=== PATIENT | male | born 1965 | race Caucasian/White ===

== ENCOUNTER 2017-07-20 20:47 | Inpatient (IN) | END 2017-07-22 17:15 | disposition home or self-care (01) | DRG 434 ==

== ENCOUNTER 2017-07-23 18:18 | Emergency (ER) | END 2017-07-24 04:11 | disposition home or self-care (01) ==

== ENCOUNTER 2017-07-25 21:00 | Emergency (ER) | END 2017-07-26 01:14 | disposition home or self-care (01) ==

== ENCOUNTER 2017-08-04 06:47 | Emergency (ER) | END 2017-08-04 11:16 | disposition home or self-care (01) ==

== ENCOUNTER 2017-08-13 14:30 | Emergency (ER) | END 2017-08-13 21:22 | disposition home or self-care (01) ==

== ENCOUNTER 2017-08-14 09:41 | Emergency (ER) | END 2017-08-14 11:48 | disposition home or self-care (01) ==

== ENCOUNTER 2017-08-20 09:58 | Emergency (ER) | END 2017-08-20 16:37 | disposition home or self-care (01) ==

== ENCOUNTER 2017-08-26 08:38 | Emergency (ER) | END 2017-08-26 17:15 | disposition home or self-care (01) ==

== ENCOUNTER 2017-09-01 09:40 | Emergency (ER) | END 2017-09-01 20:49 | disposition home or self-care (01) ==

== ENCOUNTER 2017-09-09 08:53 | Emergency (ER) | END 2017-09-09 13:30 | disposition home or self-care (01) ==

== ENCOUNTER 2017-09-15 12:17 | Emergency (ER) | END 2017-09-15 17:03 | disposition home or self-care (01) ==

== ENCOUNTER 2017-09-22 08:55 | Emergency (ER) | END 2017-09-22 13:53 | disposition home or self-care (01) ==

== ENCOUNTER 2017-09-29 08:45 | Emergency (ER) | END 2017-09-29 13:50 | disposition home or self-care (01) ==

== ENCOUNTER 2017-10-06 09:46 | Emergency (ER) | END 2017-10-06 10:34 | disposition home or self-care (01) ==

== ENCOUNTER 2017-10-11 10:39 | Emergency (ER) | END 2017-10-11 16:16 | disposition home or self-care (01) ==

== ENCOUNTER 2017-10-18 09:00 | Emergency (ER) | END 2017-10-18 14:27 | disposition home or self-care (01) ==

== ENCOUNTER 2017-10-20 14:43 | Emergency (ER) | END 2017-10-20 16:25 | disposition home or self-care (01) ==

== ENCOUNTER 2017-10-25 09:47 | Emergency (ER) | END 2017-10-25 15:15 | disposition home or self-care (01) ==

== ENCOUNTER 2017-11-03 10:00 | Emergency (ER) | END 2017-11-03 17:30 | disposition home or self-care (01) ==

== ENCOUNTER 2017-11-21 10:42 | Emergency (ER) | END 2017-11-21 15:16 | disposition home or self-care (01) ==

== ENCOUNTER 2017-12-12 08:17 | Emergency (ER) | END 2017-12-12 13:25 | disposition home or self-care (01) ==

== ENCOUNTER 2017-12-23 09:56 | Emergency (ER) | END 2017-12-23 13:05 | disposition home or self-care (01) ==

== ENCOUNTER 2018-01-06 08:27 | Emergency (ER) | END 2018-01-06 12:51 | disposition home or self-care (01) ==

== ENCOUNTER 2018-01-18 08:22 | Emergency (ER) | END 2018-01-18 12:20 | disposition home or self-care (01) ==

== ENCOUNTER 2018-01-27 07:30 | Emergency (ER) | END 2018-01-27 12:05 | disposition home or self-care (01) ==

== ENCOUNTER 2018-02-05 08:29 | Emergency (ER) | END 2018-02-05 13:12 | disposition home or self-care (01) ==

== ENCOUNTER 2018-02-16 09:17 | Emergency (ER) | END 2018-02-16 17:19 | disposition home or self-care (01) ==

== ENCOUNTER → 2018-02-26 | Emergency (ER) | END | disposition home or self-care (01) ==

== ENCOUNTER 2018-03-12 08:04 | Emergency (ER) | END 2018-03-12 10:40 | disposition home or self-care (01) ==

== ENCOUNTER 2018-03-21 08:01 | Emergency (ER) | END 2018-03-21 10:02 | disposition home or self-care (01) ==

== ENCOUNTER 2018-03-29 08:31 | Emergency (ER) | END 2018-03-29 11:31 | disposition home or self-care (01) ==

== ENCOUNTER 2018-04-08 08:01 | Emergency (ER) | END 2018-04-08 09:56 | disposition home or self-care (01) ==

== ENCOUNTER 2018-04-16 08:37 | Emergency (ER) | END 2018-04-16 12:59 | disposition home or self-care (01) ==

== ENCOUNTER 2018-04-25 08:23 | Emergency (ER) | END 2018-04-25 14:13 | disposition home or self-care (01) ==

== ENCOUNTER 2018-05-06 08:19 | Emergency (ER) | END 2018-05-06 12:00 | disposition home or self-care (01) ==

== ENCOUNTER 2018-05-16 23:03 | Inpatient (IN) | END 2018-05-20 12:56 | disposition home or self-care (01) | DRG 432 ==

== ENCOUNTER 2018-05-23 08:32 | Emergency (ER) | END 2018-05-23 11:56 | disposition home or self-care (01) ==

== ENCOUNTER 2018-05-28 06:48 | Emergency (ER) | END 2018-05-28 10:45 | disposition home or self-care (01) ==

== ENCOUNTER 2018-06-03 09:19 | Emergency (ER) | END 2018-06-03 11:17 | disposition home or self-care (01) ==

== ENCOUNTER 2018-06-10 08:17 | Emergency (ER) | END 2018-06-10 13:20 | disposition home or self-care (01) ==

== ENCOUNTER 2018-06-17 07:01 | Emergency (ER) | END 2018-06-17 11:10 | disposition home or self-care (01) ==

== ENCOUNTER 2018-06-25 04:48 | Emergency (ER) | payer MEDICAID ==
[~2018-06-25] VITALS: Ht 152.4 cm; Wt 72.7 kg
[~2018-06-25 04:48] MED LIST: FURO20TA3 PO; HYDR-3601 PO; HYDR-4011 PO; LACT20SO2 PO; PANT40TA4 PO; SPIR50TA PO
[2018-06-25 04:52] VITALS: Ht 152.4 cm; Wt 72.7 kg
[2018-06-25] MEDS ORDERED: ONDANSETRON 4 MG INJ IV STA (04:54)
[2018-06-25] MEDS ORDERED: morphine 4 MG/ML VIAL IV STA (04:54)
--- NOTE | 2018-06-25 07:43 | ERD ---
ER Documentation Chief Complaint Chief Complaint VESNA GREER,from home,L upper & lower AP & swelling,hx abd hernia HPI Patient is a 52-year-old male with a history of cirrhosis and ascites who presents with abdominal pain and ascites. The patient has no fevers. He said that he started with symptoms at 2 AM. He has received frequent paracentesis in the past. He said that he tried "pain med" today. He is well-known to myself and to our staff for similar visits. Upon review of old medical records the patient has multiple visits to the ER. ROS All systems reviewed and are negative except as per history of present illness. Medications Home Meds Active Scripts Mineral Oil/Petrolatum,White (Eucerin) 120 Gm Cream..g., 1 APPLIC TOP DAILY, #1 TUB Prov:HOME CEBALLOS MD 06/25/18 Reported Medications Spironolactone* (Aldactone*) 50 Mg Tablet, 100 MG PO BID, #60 TAB 05/16/18 Furosemide* (Furosemide*) 20 Mg Tablet, 40 MG PO BID, #30 TAB 05/16/18 Discontinued Scripts Hydrocodone/Acetaminophen ([place] 5-325 Tablet) 1 Each Tablet, 1 TAB PO Q6H PRN for PAIN, #12 TAB Prov:JULES ROMERO MD 06/10/18 Hydrocodone/Acetaminophen ([place] 5-325 Tablet) 1 Each Tablet, 1 TAB PO Q6H PRN for PAIN, #7 TAB Prov:DAYTON DUMAS DO 05/28/18 Hydrocodone Bit-Acetaminophen (Hydrocodone Bit-APAP) 5-325MG Tablet, 1 TAB PO Q8 PRN for MODERATE PAIN LEVEL 4-6 for 10 Days, #30 TAB Prov:KALPESH TERRY MD 05/20/18 Lactulose* (Lactulose*) 20 Gm/30 Ml Solution, 20 GM PO Q8 for 30 Days, #1 BOTTLE 6 Refills Prov:KALPESH TERRY MD 05/20/18 Pantoprazole* (Pantoprazole*) 40 Mg Tablet.dr, 40 MG PO BID for 30 Days, #60 TAB 2 Refills Prov:KALPESH TERRY MD 05/20/18 Allergies Allergies: Coded Allergies: No Known Allergy (Unverified , 06/25/18) PMhx/Soc History of Surgery: Yes (left leg surgery) Anesthesia Reaction: No Hx Neurological Disorder: No Hx Respiratory Disorders: No Hx Cardiac Disorders: Yes (HTN; HLD) Hx Psychiatric Problems: No Hx Miscellaneous Medical Probl: Yes (Liver cirrhosis; Liver Failure, ASCITES, Abdominal hernia) Hx Alcohol Use: Yes (former drinker stopped 11 years ago) Hx Substance Use: No Hx Tobacco Use: No Smoking Status: Never smoker FmHx Family History: No diabetes Physical Exam Vitals Vital Signs Date Temp Pulse Resp B/P (MAP) Pulse Ox O2 O2 Flow FiO2 Time Delivery Rate 06/25/18 98.0 76 18 108/73 98 Room Air 08:00 (85) 06/25/18 97.9 82 18 107/80 97 Room Air 06:05 (89) 06/25/18 85 21 134/86 100 Room Air 05:00 (102) 06/25/18 97.8 91 18 143/90 100 04:52 (107) Physical Exam Const: No acute distress Head: Atraumatic Eyes: Normal Conjunctiva ENT: Normal External Ears, Nose and Mouth. Neck: Full range of motion. No meningismus. Resp: Clear to auscultation bilaterally Cardio: Regular rate and rhythm, no murmurs Abd: Distended abdomen with large umbilical hernia which is easily reducible without signs of obstruction or incarceration, positive fluid wave Skin: No petechiae or rashes Back: No midline or flank tenderness Ext: No cyanosis, or edema Neur: Awake and alert Psych: Normal Mood and Affect Result Diagram: 06/25/18 0513 06/25/18 0513 Results 24 hrs Laboratory Tests Test 06/25/18 05:13 06/25/18 05:26 White Blood Count 7.1 10^3/ul Red Blood Count 3.56 10^6/ul Hemoglobin 10.4 g/dl Hematocrit 31.1 % Mean Corpuscular Volume 87.4 fl Mean Corpuscular Hemoglobin 29.2 pg Mean Corpuscular Hemoglobin Concent 33.4 g/dl Red Cell Distribution Width 14.6 % Platelet Count 87 10^3/UL Mean Platelet Volume 10.1 fl Immature Granulocytes % 0.600 % Neutrophils % 66.2 % Lymphocytes % 13.3 % Monocytes % 11.3 % Eosinophils % 7.7 % Basophils % 0.9 % Nucleated Red Blood Cells % 0.0 /100WBC Immature Granulocytes # 0.040 10^3/ul Neutrophils # 4.7 10^3/ul Lymphocytes # 0.9 10^3/ul Monocytes # 0.8 10^3/ul Eosinophils # 0.5 10^3/ul Basophils # 0.1 10^3/ul Nucleated Red Blood Cells # 0.0 10^3/ul Prothrombin Time 13.8 Sec Prothrombin Time Ratio 1.1 INR International Normalized Ratio 1.05 Sodium Level 135 mmol/L Potassium Level 5.0 mmol/L Chloride Level 103 mmol/L Carbon Dioxide Level 22 mmol/L Anion Gap 10 Blood Urea Nitrogen 16 mg/dl Creatinine 0.65 mg/dl Est Glomerular Filtrat Rate mL/min > 60 mL/min Glucose Level 111 mg/dl Calcium Level 8.1 mg/dl Total Bilirubin 0.7 mg/dl Direct Bilirubin 0.00 mg/dl Indirect Bilirubin 0.7 mg/dl Aspartate Amino Transf (AST/SGOT) 57 IU/L Alanine Aminotransferase (ALT/SGPT) 33 IU/L Alkaline Phosphatase 196 IU/L Troponin I < 0.012 ng/ml Total Protein 6.7 g/dl Albumin 3.0 g/dl Globulin 3.70 g/dl Albumin/Globulin Ratio 0.81 Lipase 193 U/L Urine Color YELLOW Urine Clarity CLEAR Urine pH 5.0 Urine Specific Timpson 1.019 Urine Ketones NEGATIVE mg/dL Urine Nitrite NEGATIVE mg/dL Urine Bilirubin NEGATIVE mg/dL Urine Urobilinogen NEGATIVE mg/dL Urine Leukocyte Esterase NEGATIVE Akua/ul Urine Hemoglobin NEGATIVE mg/dL Urine Glucose NEGATIVE mg/dL Urine Total Protein NEGATIVE mg/dl Current Medications Medications Dose Sig/Sara Start Time Status Last (Trade) Ordered Route PRN Stop Time Admin Dose Reason Admin Morphine 4 mg ONCE STAT 06/25/18 DC 06/25/18 Sulfate IV 04:54 06/25/18 05:07 (morphine) 04:57 Ondansetron 4 mg ONCE STAT 06/25/18 DC 06/25/18 HCl (Zofran IV 04:54 06/25/18 05:07 Inj) 04:57 Lidocaine 5 ml STK-MED 06/25/18 DC (Xylocaine ONCE .ROUTE 11:20 06/25/18 1% (Mpf)) 11:21 Procedures/MDM EKG read by me: Rate/Rhythm: Regular rate and rhythm at a rate of 85 Intervals: Normal Impression: No evidence of ischemia or arrhythmia CT abdomen and pelvis read by radiology. Ultrasound paracentesis done by radiology. Patient is a 52-year-old male presents with abdominal pain and distention. I doubt spontaneous bacterial peritonitis. The patient had a ultrasound-guided paracentesis and will be discharged. I doubt appendicitis, cholecystitis, pancreatitis, or bowel obstruction. The patient should follow-up with his primary doctor within 1 week and discuss scheduling his paracentesis. Departure Diagnosis: Primary Impression: Abdominal pain Abdominal location: generalized Qualified Codes: R10.84 - Generalized abdominal pain Additional Impression: Ascites Ascites type: other type Qualified Codes: R18.8 - Other ascites Condition: Fair Patient Instructions: Ascites Referrals: Your doctor Additional Instructions: Llame al doctor nombrado abajo (Referral Sources) MAANA y chandu jake JASWINDER PARA DENTRO DE JAKE SEMANA. Dgale a la secretaria que nosotros le instruimos hacer esta jaswinder.Avise o llame si arias condicin se empeora antes de la jaswinder. HOME CEBALLOS MD Jun 25, 2018 07:43
[2018-06-25] MEDS ORDERED: MINE120C TOP (08:54)
[2018-06-25] MEDS ORDERED: LIDOCAINE 1% (MPF) 5 ML VIAL ONE (11:20)
--- NOTE | 2018-06-25 11:22 | NUR ---
Paracentesis Dereck Tapia used 10ml of 1% lidocaine to right lower quadrant for ultrasound guided paracentesis, 5,000ml of yellow color fluid was removed by , fluid was discarded per Dr. Cohen, patient tolerated exam. RP
[2018-06-25 11:55] VITALS: BP 106/72; PULSE 76; RESP 16
== END 2018-06-25 11:57 | disposition home or self-care (01) ==
LOC: E/R 04:48
DX: R10.84 Generalized abdominal pain (principal); R18.8 Other ascites; I10 Essential (primary) hypertension
CPT/HCPCS: 36415; 74176; 80053; 81003; 83690; 84484; 85025; 85610; 93005; 96374; 96375; J2270; J2405; Z7502; Z7610

== ENCOUNTER 2018-07-01 08:01 | Emergency (ER) | payer MEDICAID ==
[~2018-07-01] VITALS: Ht 167.6 cm; Wt 75.3 kg
[~2018-07-01 08:01] MED LIST changes: -HYDR-3601 PO; -HYDR-4011 PO; -LACT20SO2 PO; +MINE120C TOP; -PANT40TA4 PO
[2018-07-01 08:05] VITALS: Ht 167.6 cm; Wt 75.3 kg
[2018-07-01] MEDS ORDERED: PANT40TA4 PO (08:25)
[2018-07-01] MEDS ORDERED: LIDOCAINE 1% (MPF) 5 ML VIAL ONE (09:30)
--- NOTE | 2018-07-01 09:32 | NUR ---
Paracentesis Dr. Carrington used 10ml of 1% lidocaine to right lower quadrant for ultrasound guided paracentesis, 5,000ml of yellow color fluid was removed by Dr. Carrington, fluid was discarded per Dr. Cohen, patient tolerated exam. RP
[2018-07-01 09:34] VITALS: BP 109/69; PULSE 73; RESP 17
--- NOTE | 2018-07-01 10:44 | ERD ---
ER Documentation Chief Complaint Chief Complaint Patient here for Paracentesis Hx Of Ascites HPI Patient is a 52-year-old male with cirrhosis who presents for paracentesis. He said that his last paracentesis was June 25. He has no fevers. He has abdominal distention and pain. He is well-known to myself and to our staff as he comes frequently for paracentesis. Upon review of old medical records the patient has multiple visits approximately 2/week. ROS All systems reviewed and are negative except as per history of present illness. Medications Home Meds Active Scripts Mineral Oil/Petrolatum,White (Eucerin) 120 Gm Cream..g., 1 APPLIC TOP DAILY, #1 TUB Prov:HOME CEBALLOS MD 06/25/18 Reported Medications Pantoprazole* (Pantoprazole*) 40 Mg Tablet.dr, 40 MG PO AC BREAKFAST, TAB 07/01/18 Spironolactone* (Aldactone*) 50 Mg Tablet, 100 MG PO BID, #60 TAB 05/16/18 Furosemide* (Furosemide*) 20 Mg Tablet, 40 MG PO BID, #30 TAB 05/16/18 Discontinued Scripts Hydrocodone/Acetaminophen ([place] 5-325 Tablet) 1 Each Tablet, 1 TAB PO Q6H PRN for PAIN, #12 TAB Prov:JULES ROMERO MD 06/10/18 Hydrocodone/Acetaminophen ([place] 5-325 Tablet) 1 Each Tablet, 1 TAB PO Q6H PRN for PAIN, #7 TAB Prov:DAYTON DUMAS DO 05/28/18 Hydrocodone Bit-Acetaminophen (Hydrocodone Bit-APAP) 5-325MG Tablet, 1 TAB PO Q8 PRN for MODERATE PAIN LEVEL 4-6 for 10 Days, #30 TAB Prov:KALPESH TERRY MD 05/20/18 Lactulose* (Lactulose*) 20 Gm/30 Ml Solution, 20 GM PO Q8 for 30 Days, #1 BOTTLE 6 Refills Prov:KALPESH TERRY MD 05/20/18 Pantoprazole* (Pantoprazole*) 40 Mg Tablet.dr, 40 MG PO BID for 30 Days, #60 TAB 2 Refills Prov:KALPESH TERRY MD 05/20/18 Allergies Allergies: Coded Allergies: No Known Allergy (Unverified , 07/01/18) PMhx/Soc History of Surgery: Yes (left leg surgery) Anesthesia Reaction: No Hx Neurological Disorder: No Hx Respiratory Disorders: No Hx Cardiac Disorders: Yes (HTN; HLD) Hx Psychiatric Problems: No Hx Miscellaneous Medical Probl: Yes (Liver cirrhosis; Liver Failure, ASCITES, Abdominal hernia) Hx Alcohol Use: Yes (former drinker stopped 11 years ago) Hx Substance Use: No Hx Tobacco Use: No Smoking Status: Never smoker FmHx Family History: diabetes Physical Exam Vitals Vital Signs Date Temp Pulse Resp B/P (MAP) Pulse Ox O2 O2 Flow FiO2 Time Delivery Rate 07/01/18 73 17 109/69 100 Room Air 09:34 (82) 07/01/18 81 17 111/65 100 Room Air 08:53 (80) 07/01/18 98.3 90 20 130/75 98 08:05 (93) Physical Exam Const: No acute distress Head: Atraumatic Eyes: Normal Conjunctiva ENT: Normal External Ears, Nose and Mouth. Neck: Full range of motion. No meningismus. Resp: Clear to auscultation bilaterally Cardio: Regular rate and rhythm, no murmurs Abd: Abdominal distention with positive fluid wave and large hernia which is easily reducible Skin: No petechiae or rashes Back: No midline or flank tenderness Ext: No cyanosis, or edema Neur: Awake and alert Psych: Normal Mood and Affect Results 24 hrs Current Medications Medications Dose Sig/Sara Start Time Status Last (Trade) Ordered Route PRN Stop Time Admin Dose Reason Admin Lidocaine 5 ml STK-MED 07/01/18 DC (Xylocaine ONCE .ROUTE 09:30 07/01/18 1% (Mpf)) 09:31 Procedures/MDM Ultrasound-guided paracentesis performed by radiology. Patient presents for abdominal pain and distention. Ultrasound-guided paracentesis was performed. I doubt spontaneous bacterial peritonitis. The patient will be discharged and should follow-up with a primary doctor. Departure Diagnosis: Primary Impression: Abdominal pain Abdominal location: generalized Qualified Codes: R10.84 - Generalized abdominal pain Additional Impression: Ascites Ascites type: other type Qualified Codes: R18.8 - Other ascites Condition: Fair Patient Instructions: Ascites Referrals: [facility] Usted se delatorre hecho un examen mdico de control que le indica que no est en jose condicin que requiera tratamiento urgente en el Departamento de Emergencia. Un estudio ms profundo y el tratamiento de arias condicin pueden esperar sin ningn riesgo hasta que usted sea atendida/o en el consultorio de arias mdico o jose clnica. Es responsabilidad suya arreglar jose jaswinder para el seguimiento del archana. MANEJO DE CONDICIONES NO URGENTES EN EL FUTURO 1) Si usted tiene un mdico de atencin primaria: Usted debera llamar a arias mdico de atencin primaria antes de venir al departamento de emergencia. Despus de las horas de consultorio, arias doctor o arias asociado/a est disponible por telfono. El mdico o enfermero de eduard en el servicio telefnico puede asesorarle por cely medio para atender el problema, o archana contrario se puede programar jose jaswinder. 2) Si usted no tiene un mdico de atencin primaria: Llame al mdico o clnica de referencia que aparece abajo radha las horas de consultorio para hacer jose jaswinder para que le vean. CLINICAS: [facility] [phone] [facility] [phone] [facility]. [facility] [phone] [facility]. [place] [phone] [facility]. [place] [id number] [phone] [facility]. [phone] [address] Additional Instructions: Llame al doctor nombrado abajo (Referral Sources) MAANA y chandu jose JASWINDER PARA DENTRO DE JOSE SEMANA. Dgale a la secretaria que nosotros le instruimos hacer esta jaswinder.Avise o llame si arias condicin se empeora antes de la jaswinder. HOME CEBALLOS MD Jul 01, 2018 10:44
== END 2018-07-01 10:30 | disposition home or self-care (01) ==
LOC: E/R 08:01
DX: R10.84 Generalized abdominal pain (principal); R18.8 Other ascites; I10 Essential (primary) hypertension
CPT/HCPCS: Z7502; Z7610

== ENCOUNTER 2018-07-08 01:00 | Emergency (ER) | payer SELFPAY ==
[~2018-07-08] VITALS: Ht 157.5 cm; Wt 77.1 kg
[~2018-07-08 01:00] MED LIST changes: +PANT40TA4 PO
[2018-07-08 01:02] VITALS: Ht 157.5 cm; Wt 77.1 kg
== END 2018-07-08 04:41 | disposition left against medical advice (07) ==
LOC: E/R 01:00
DX: Z53.21 Procedure and treatment not carried out due to patient leaving prior to being seen by health care provider (principal)

== ENCOUNTER 2018-07-08 09:33 | Emergency (ER) | payer MEDICAID ==
[~2018-07-08] VITALS: Wt 76.7 kg
[2018-07-08] MEDS ORDERED: LIDOCAINE 1% (MPF) 5 ML VIAL ONE (10:39)
[2018-07-08 11:25] VITALS: BP 118/78; PULSE 81; RESP 18
--- NOTE | 2018-07-08 12:43 | ERD ---
ER Documentation Chief Complaint Chief Complaint ABD DISTENSION, PT HERE FOR PARACENTESIS HPI Patient is a 52-year-old male with ascites who presents for paracentesis. The patient came for his paracentesis. He has a history of frequent paracentesis approximately every 3 days. He denies fevers. Upon review of old medical records the patient has multiple visits to the ER for similar complaints and is well-known to myself and to our staff. ROS All systems reviewed and are negative except as per history of present illness. Medications Home Meds Discontinued Reported Medications Pantoprazole* (Pantoprazole*) 40 Mg Tablet.dr, 40 MG PO AC BREAKFAST, TAB 07/01/18 Spironolactone* (Aldactone*) 50 Mg Tablet, 100 MG PO BID, #60 TAB 05/16/18 Furosemide* (Furosemide*) 20 Mg Tablet, 40 MG PO BID, #30 TAB 05/16/18 Discontinued Scripts Mineral Oil/Petrolatum,White (Eucerin) 120 Gm Cream..g., 1 APPLIC TOP DAILY, #1 TUB Prov:HOME CEBALLOS MD 06/25/18 Allergies Allergies: Coded Allergies: No Known Allergy (Unverified , 07/08/18) PMhx/Soc History of Surgery: Yes (left leg surgery) Anesthesia Reaction: No Hx Neurological Disorder: No Hx Respiratory Disorders: No Hx Cardiac Disorders: Yes (HTN; HLD) Hx Psychiatric Problems: No Hx Miscellaneous Medical Probl: Yes (Liver cirrhosis; Liver Failure, ASCITES, Abdominal hernia) Hx Alcohol Use: Yes (former drinker stopped 11 years ago) Hx Substance Use: No Hx Tobacco Use: No Smoking Status: Never smoker FmHx Family History: No diabetes Physical Exam Vitals Vital Signs Date Temp Pulse Resp B/P (MAP) Pulse Ox O2 O2 Flow FiO2 Time Delivery Rate 07/08/18 81 18 118/78 100 Room Air 11:25 (91) 07/08/18 78 18 121/77 98 Room Air 11:02 (92) 07/08/18 97.6 93 16 153/82 98 09:36 (105) Physical Exam Const: No acute distress Head: Atraumatic Eyes: Normal Conjunctiva ENT: Normal External Ears, Nose and Mouth. Neck: Full range of motion. No meningismus. Resp: Clear to auscultation bilaterally Cardio: Regular rate and rhythm, no murmurs Abd: Distended abdomen with large hernia which is easily reducible Skin: No petechiae or rashes Back: No midline or flank tenderness Ext: No cyanosis, or edema Neur: Awake and alert Psych: Normal Mood and Affect Results 24 hrs Current Medications Medications Dose Sig/Sara Start Time Status Last (Trade) Ordered Route PRN Stop Time Admin Dose Reason Admin Lidocaine 5 ml STK-MED 07/08/18 DC 07/08/18 (Xylocaine ONCE .ROUTE 10:39 10:44 1% (Mpf)) 07/08/18 10:40 Procedures/MDM Ultrasound-guided paracentesis performed by radiology. Patient presented with ascites. I doubt spontaneous bacterial peritonitis. Ultrasound-guided paracentesis was performed by radiology. Patient will be discharged in stable condition. Departure Diagnosis: Primary Impression: Ascites Ascites type: other type Qualified Codes: R18.8 - Other ascites Condition: Fair Patient Instructions: Ascites Referrals: [facility] Usted se delatorre hecho un examen mdico de control que le indica que no est en jake condicin que requiera tratamiento urgente en el Departamento de Emergencia. Un estudio ms profundo y el tratamiento de arias condicin pueden esperar sin ningn riesgo hasta que usted sea atendida/o en el consultorio de arias mdico o jake clnica. Es responsabilidad suya arreglar jake jaswinder para el seguimiento del archana. MANEJO DE CONDICIONES NO URGENTES EN EL FUTURO 1) Si usted tiene un mdico de atencin primaria: Usted debera llamar a arias mdico de atencin primaria antes de venir al departamento de emergencia. Despus de las horas de consultorio, arias doctor o arias asociado/a est disponible por telfono. El mdico o enfermero de eduard en el servicio telefnico puede asesorarle por cely medio para atender el problema, o archana contrario se puede programar jake jaswinder. 2) Si usted no tiene un mdico de atencin primaria: Llame al mdico o clnica de referencia que aparece abajo radha las horas de consultorio para hacer jake jaswinder para que le vean. CLINICAS: [facility] [phone] [facility] [phone] [facility] [phone] [place] [address] [phone] [place] [address] [phone] [facility]. [phone] [address] Additional Instructions: Llame al doctor nombrado abajo (Referral Sources) MAANA y chandu jake JASWINDER PARA DENTRO DE JAKE SEMANA. Dgale a la secretaria que nosotros le instruimos hacer esta jaswinder.Avise o llame si arias condicin se empeora antes de la jaswinder. HOME CEBALLOS MD Jul 08, 2018 12:43
== END 2018-07-08 13:21 | disposition home or self-care (01) ==
LOC: E/R 09:33
DX: R18.8 Other ascites (principal); I10 Essential (primary) hypertension
CPT/HCPCS: 49083; Z7502; Z7610

== ENCOUNTER 2018-07-15 08:16 | Emergency (ER) | payer MEDICAID ==
[~2018-07-15] VITALS: Ht 167.6 cm; Wt 76.1 kg
[2018-07-15 08:19] VITALS: Ht 167.6 cm; Wt 76.1 kg
--- NOTE | 2018-07-15 09:40 | ERD ---
ER Documentation Chief Complaint Chief Complaint Complains of abdominal pain Hx of ascites HPI 52-year-old male with a history of hypertension and liver cirrhosis with recurrent ascites presents the ED with increasing abdominal distention requesting paracentesis. Patient well-known with multiple prior visits for same most recently July 08, 2017. Denies abdominal pain, nausea, vomiting, hematemesis or hematochezia. No fevers or chills. ROS All systems reviewed and are negative except as per history of present illness. Medications Home Meds Reported Medications Spironolactone* (Aldactone*) 50 Mg Tablet, 50 MG PO DAILY, #30 TAB 07/15/18 Furosemide* (Furosemide*) 20 Mg Tablet, 20 MG PO DAILY, #60 TAB 07/15/18 Allergies Allergies: Coded Allergies: No Known Allergy (Unverified , 07/08/18) PMhx/Soc History of Surgery: Yes (left leg surgery) Anesthesia Reaction: No Hx Neurological Disorder: No Hx Respiratory Disorders: No Hx Cardiac Disorders: Yes (HTN; HLD) Hx Psychiatric Problems: No Hx Miscellaneous Medical Probl: Yes (Liver cirrhosis; Liver Failure, ASCITES, Abdominal hernia) Hx Alcohol Use: Yes (former drinker stopped 11 years ago) Hx Substance Use: No Hx Tobacco Use: No FmHx No family history relevant to presenting complaint Physical Exam Vitals Vital Signs Date Temp Pulse Resp B/P (MAP) Pulse Ox O2 O2 Flow FiO2 Time Delivery Rate 07/15/18 98.0 60 20 130/68 100 Room Air 13:01 (88) 07/15/18 98.0 85 20 138/71 100 08:19 (93) Physical Exam Const: Alert, moderate distress Head: Atraumatic Eyes: Normal Conjunctiva ENT: Normal External Ears, Nose and Mouth. Neck: Full range of motion. No meningismus. Resp: Clear to auscultation bilaterally Cardio: Regular rate and rhythm, no murmurs Abd: Soft, distended, tense. Easily reducible umbilical hernia. Skin: No petechiae or rashes Back: No midline or flank tenderness Ext: 1+ edema. Neur: Awake and alert. No focal deficit Psych: Normal Mood and Affect Results 24 hrs Current Medications Medications Dose Sig/Sara Start Time Status Last (Trade) Ordered Route PRN Stop Time Admin Dose Reason Admin Lidocaine 5 ml STK-MED 07/15/18 DC 07/15/18 (Xylocaine ONCE .ROUTE 10:58 11:00 1% (Mpf)) 07/15/18 10:59 Procedures/MDM DOCUMENTS REVIEWED: ED nurse, prior ED, prior records IMAGING: PROCEDURE: Ultrasound guided paracentesis. CLINICAL INDICATION: Ascites and shortness of breath. COMPARISON: No prior studies are available for comparison. TECHNIQUE: The risks, benefits, and alternatives were explained to the patient and/or the patient's family, including but not limited to bleeding, infection, pain, visceral or vascular damage, shock, and . The patient and/or the patient's family understood the risks and the alternatives and wished to proceed with the procedure. Informed written consent was obtained. A procedural time out was performed. The patient's name, date of , and procedure to be performed were verified. Utilizing ultrasound guidance, optimal location for entry to the peritoneal cavity was ascertained. The overlying skin was prepped and draped in the usual sterile fashion. Approximately 10 ml of 1% Xylocaine was injected locally for pain control. Using ultrasound guidance, an 8 Serbian catheter was introduced into the peritoneal cavity in the left lower quadrant without difficulty. Specimens: Ascites fluid. Blood loss: 1 ml. Complications: None. Program Advisor: None. Anesthesia: Local. Graft/Implant: None. FINDINGS: Initial images demonstrate ascites. Approximately 5 liters of serous fluid was aspirated and discarded. The patient tolerated the procedure well without complication. IMPRESSION: Successful ultrasound-guided paracentesis. RPTAT: QQ Physician Lawanda Date Time Electronically viewed and signed by Physician Lawanda on 07/15/2018 12:28 rV/ REEXAMINATION/REEVALUATION: Time: 1238. Doing well post paracentesis. No hypotension. MEDICAL DECISION MAKIN-year-old male with a history of hypertension and liver cirrhosis with recurrent ascites presents the ED with increasing abdominal distention requesting paracentesis. Large volume paracentesis performed by interventional radiology and 5 L removed. SBP is unlikely. No other signs of volume overload. No encephalopathy or GI bleeding. Stable for discharge with precautionary instructions and outpatient follow-up as counseled. Counseled patient regarding diagnostic workup, diagnosis and need for followup. Understands to return to ED if symptoms recur, worsen or any other concerns. Departure Diagnosis: Primary Impression: Ascites Ascites type: due to alcoholic cirrhosis Qualified Codes: K70.31 - Alcoholic cirrhosis of liver with ascites Additional Impressions: Liver cirrhosis Hepatic cirrhosis type: alcoholic cirrhosis Ascites presence: with ascites Qualified Codes: K70.31 - Alcoholic cirrhosis of liver with ascites Umbilical hernia Obstruction and gangrene presence: without obstruction or gangrene Qualified Codes: K42.9 - Umbilical hernia without obstruction or gangrene Condition: Stable NURIA RUIZ MD Jul 15, 2018 09:40
[2018-07-15] MEDS ORDERED: SPIR50TA PO (10:03)
[2018-07-15] MEDS ORDERED: FURO20TA3 PO (10:03)
[2018-07-15] MEDS ORDERED: LIDOCAINE 1% (MPF) 5 ML VIAL ONE (10:58)
[2018-07-15 13:01] VITALS: BP 130/68; PULSE 60; RESP 20
== END 2018-07-15 13:01 | disposition home or self-care (01) ==
LOC: E/R 08:16
DX: K70.31 Alcoholic cirrhosis of liver with ascites (principal); I10 Essential (primary) hypertension
CPT/HCPCS: 49083; Z7502; Z7610

== ENCOUNTER 2018-07-23 08:20 | Emergency (ER) | payer MEDICAID ==
[~2018-07-23] VITALS: Ht 157.5 cm; Wt 77.0 kg
[~2018-07-23 08:20] MED LIST changes: -MINE120C TOP; -PANT40TA4 PO
[2018-07-23 08:22] VITALS: Ht 157.5 cm; Wt 77.0 kg
--- NOTE | 2018-07-23 09:44 | NUR ---
RAD NSG NOTE: Attended to pt in US for paracentesis. Pre procedure BP 125/73, HR 72, O2 sat 98%. Beginning of procedure 125/78, HR 70, O2sat 98%. 8 mins into procedure 128/78, HR 73, O2 sat 99%. End of procedure, BP 116/72, HR 72, O2 sat 99%. Tolerated procedure well. Minimal complaints. Returned to ED via gurney. Total fluid removed= 5 liters.
[2018-07-23] MEDS ORDERED: PANT40TA4 PO (09:45)
[2018-07-23] MEDS ORDERED: LIDOCAINE 1% (MPF) 5 ML VIAL ONE (10:10)
--- NOTE | 2018-07-23 10:12 | NUR ---
Paracentesis Dr. Matute used 10ml of 1% lidocaine to right lower quadrant for ultrasound guided paracentesis, 5,000ml of yellow color fluid was removed by Dr. Matute, fluid was discarded, patient tolerated exam. RP
[2018-07-23] MEDS ORDERED: ONDA4TAB14 PO (10:47)
[2018-07-23] MEDS ORDERED: HYDR-3980 PO (10:47)
--- NOTE | 2018-07-23 11:02 | ERD ---
ER Documentation Chief Complaint Chief Complaint abdominal pain, accummulation of fluid in the abd - for paracentesis HPI This is a 52-year-old male who is here for therapeutic paracentesis due to ascites due to liver failure. He has no abdominal pain just some swelling and mild discomfort from the swelling no vomiting diarrhea ROS All systems reviewed and are negative except as per history of present illness. Medications Home Meds Reported Medications Pantoprazole* (Pantoprazole*) 40 Mg Tablet.dr, 40 MG PO AC BREAKFAST, TAB 07/23/18 Spironolactone* (Aldactone*) 50 Mg Tablet, 50 MG PO DAILY, #30 TAB 07/15/18 Furosemide* (Furosemide*) 20 Mg Tablet, 20 MG PO DAILY, #60 TAB 07/15/18 Discontinued Scripts Ondansetron (Ondansetron Odt) 4 Mg Tab.rapdis, 4 MG PO Q6H PRN for NAUSEA AND/OR VOMITING, #10 TAB Prov:LEKKOS,APOSTOLOS A. DO 07/23/18 Hydrocodone/Acetaminophen ([place] 10-325 Tablet) 1 Each Tablet, 1 TAB PO Q6H PRN for PAIN, #7 TAB Prov:LEKKOS,APOSTOLOS A. DO 07/23/18 Allergies Allergies: Coded Allergies: No Known Allergy (Unverified , 07/23/18) PMhx/Soc History of Surgery: Yes (left leg surgery) Anesthesia Reaction: No Hx Neurological Disorder: No Hx Respiratory Disorders: No Hx Cardiac Disorders: Yes (HTN; HLD) Hx Psychiatric Problems: No Hx Miscellaneous Medical Probl: Yes (Liver cirrhosis; Liver Failure, ASCITES, Abdominal hernia) Hx Alcohol Use: Yes (former drinker stopped 11 years ago) Hx Substance Use: No Hx Tobacco Use: No Smoking Status: Never smoker FmHx Family History: No coronary disease Physical Exam Vitals Vital Signs Date Temp Pulse Resp B/P (MAP) Pulse Ox O2 O2 Flow FiO2 Time Delivery Rate 07/23/18 98.6 89 19 144/80 99 08:22 (101) Physical Exam Const: Well-developed, well-nourished Head: Atraumatic, normocephalic Eyes: Normal Conjunctiva, PERRLA, EOMI, normal sclera, no nystagmus ENT: Normal External Ears, Nose and Mouth, moist mucus membranes. Neck: Full range of motion. No meningismus, no lymphadenopathy. Resp: Clear to auscultation bilaterally, no wheezing, rhonchi, rales Cardio: Regular rate and rhythm, no murmurs, S1 S2 present Abd: Soft, non tender x 4, distended with ascites. Normal bowel sounds, no guarding or rebound, no pulsitile abdominal masses or bruits Skin: No petechiae or rashes, no ecchymosis , no maculopapular rash Back: No midline or flank tenderness Ext: No cyanosis, or edema, FROM x 4, normal inspection, neurovascularly intact x 4 Neur: Awake and alert, STR 5/5 x 4, sensation intact x 4, no focal findings, cerebellum intact Psych: Normal Mood and Affect Results 24 hrs Current Medications Medications Dose Sig/Sara Start Time Status Last (Trade) Ordered Route PRN Stop Time Admin Dose Reason Admin Lidocaine 5 ml STK-MED 07/23/18 DC (Xylocaine ONCE .ROUTE 10:10 1% (Mpf)) 07/23/18 10:11 Procedures/MDM Patient had a therapeutic paracentesis successfully by interventional radiologist Departure Diagnosis: Primary Impression: Ascites Ascites type: other type Qualified Codes: R18.8 - Other ascites Condition: Stable Patient Instructions: DAYTON Smith DO Jul 23, 2018 11:02
[2018-07-23 11:09] VITALS: BP 108/70; PULSE 77; RESP 18
== END 2018-07-23 11:16 | disposition home or self-care (01) ==
LOC: E/R 08:20
DX: R18.8 Other ascites (principal); I10 Essential (primary) hypertension
CPT/HCPCS: 49083; Z7502; Z7610

== ENCOUNTER 2018-08-14 08:04 | Emergency (ER) | payer MEDICAID ==
[~2018-08-14] VITALS: Ht 162.6 cm; Wt 72.7 kg
[~2018-08-14 08:04] MED LIST changes: +PANT40TA4 PO
[2018-08-14 08:07] VITALS: Ht 162.6 cm; Wt 72.7 kg
[2018-08-14 09:10] VITALS: BP 121/76; PULSE 75; RESP 22
[2018-08-14 09:25] VITALS: BP 118/72; PULSE 73; RESP 20
[2018-08-14 09:45] VITALS: BP 115/72; PULSE 75; RESP 20
--- NOTE | 2018-08-14 10:27 | ERD ---
ER Documentation Chief Complaint Chief Complaint PT needs paracentisis HPI 52-year-old male presents the emergency department for therapeutic paracentesis. Patient has a long-standing history of alcoholic cirrhosis requiring paracentesis. He returned to the emergency department today for his relatively routine therapeutic paracentesis. He has no acute complaints at this time including no abdominal pain, fevers, vomiting. ROS All systems reviewed and are negative except as per history of present illness. Medications Home Meds Reported Medications Pantoprazole* (Pantoprazole*) 40 Mg Tablet.dr, 40 MG PO AC BREAKFAST, TAB 07/23/18 Spironolactone* (Aldactone*) 50 Mg Tablet, 50 MG PO DAILY, #30 TAB 07/15/18 Furosemide* (Furosemide*) 20 Mg Tablet, 20 MG PO DAILY, #60 TAB 07/15/18 Allergies Allergies: Coded Allergies: No Known Allergy (Unverified , 08/06/18) PMhx/Soc History of Surgery: Yes (left leg surgery) Anesthesia Reaction: No Hx Neurological Disorder: No Hx Respiratory Disorders: No Hx Cardiac Disorders: Yes (HTN; HLD) Hx Psychiatric Problems: No Hx Miscellaneous Medical Probl: Yes (Liver cirrhosis; Liver Failure, ASCITES, Abdominal hernia) Hx Alcohol Use: Yes (former drinker stopped 11 years ago) Hx Substance Use: No Hx Tobacco Use: No Smoking Status: Never smoker FmHx Noncontributory for chief complaint Physical Exam Vitals Vital Signs Date Temp Pulse Resp B/P (MAP) Pulse Ox O2 O2 Flow FiO2 Time Delivery Rate 08/14/18 98.3 72 16 127/84 100 Room Air 10:14 (98) 08/14/18 78 18 126/87 97 Room Air 08:20 (100) 08/14/18 97.9 85 18 138/82 99 08:07 (100) Physical Exam GENERAL: Chronically ill but in no acute distress HEENT: Pupils equal, round, and reactive to light. EOMI. There is no scleral icterus. NECK: C-spine is soft and supple, there is no meningismus. There is no cervical lymphadenopathy. LUNGS: Clear to auscultation bilaterally. There are no rales, wheezes or rhonchi. HEART: Regular rate and rhythm, no murmurs, clicks, rubs or gallops. ABDOMEN: Soft, distended with a fluid wave. No tenderness to palpation. No rebound or guarding. EXTREMITIES: There is no peripheral cyanosis or edema. No focal swelling or erythema. NEURO: The patient moves all four extremities with 5/5 strength. Cranial nerves II - XII are intact. Normal gait. Alert and oriented no asterixis SKIN: There is no apparent rash or petechiae. HEME/LYMPHATIC: There is no evidence of excessive bruising or lymphedema. PSYCHIATRIC: The patient does not appear anxious or depressed. Procedures/MDM Patient was taken to a room, seen and examined revaluation: After therapeutic paracentesis, patient's abdomen remained benign. He remained comfortable and seemed appropriate for discharge Medical decision makin-year-old male presents the emergency department after a therapeutic paracentesis. At this time, patient shows no evidence of decompensated concerns regarding the liver disease including no evidence of encephalopathy, GI bleed, infection. Overall, patient is clinically nontoxic and seems appropriate for outpatient care. Departure Diagnosis: Primary Impression: Ascites Condition: Stable Patient Instructions: Ascites Additional Instructions: Please see your doctor please NARCISO HERNANDEZ Aug 14, 2018 10:27
[2018-08-14 11:00] VITALS: BP 113/80; PULSE 76; RESP 16
[2018-08-14] MEDS ORDERED: LIDOCAINE 1% (MPF) 5 ML VIAL ONE (14:25)
== END 2018-08-14 11:00 | disposition home or self-care (01) ==
LOC: E/R 08:04
DX: R18.8 Other ascites (principal); I10 Essential (primary) hypertension
CPT/HCPCS: Z7502; Z7610

== ENCOUNTER 2018-08-15 15:15 | Inpatient (IN) | payer MEDICAID ==
[~2018-08-15] VITALS: Ht 154.9 cm; Wt 70.6 kg
[2018-08-15] MEDS ORDERED: SOD CHLORIDE 0.9% 1,000 ML IV STA (18:32)
[2018-08-15] MEDS ORDERED: morphine 4 MG/ML VIAL IV STA (18:32)
[2018-08-15] MEDS ORDERED: ONDANSETRON 4 MG INJ IV STA (18:32)
--- NOTE | 2018-08-15 20:06 | ERD ---
ER Documentation Chief Complaint Chief Complaint BIB [id number] from home: hernia pain today. hx liver cirrhosis. HPI 52-year-old man with a known umbilical hernia times 1 year presents with increased pain and swelling beginning this morning when he woke up, states the swelling will not go down on its own as it usually does. Patient denies fevers or chills, he is had one episode of vomiting and feels nauseous, denies diarrhea or constipation, no blood per rectum or melena, no complaints of chest pain or shortness of breath. ROS All systems reviewed and are negative except as per history of present illness. Medications Home Meds Reported Medications Pantoprazole* (Pantoprazole*) 40 Mg Tablet.dr, 40 MG PO AC BREAKFAST, TAB 07/23/18 Spironolactone* (Aldactone*) 50 Mg Tablet, 50 MG PO DAILY, #30 TAB 07/15/18 Furosemide* (Furosemide*) 20 Mg Tablet, 20 MG PO DAILY, #60 TAB 07/15/18 Allergies Allergies: Coded Allergies: No Known Allergy (Unverified , 08/06/18) PMhx/Soc Remote history of cirrhosis, abdominal hernia History of Surgery: No Anesthesia Reaction: No Hx Neurological Disorder: No Hx Respiratory Disorders: No Hx Cardiac Disorders: No Hx Psychiatric Problems: No Hx Miscellaneous Medical Probl: Yes (UMBILICAL HERNIA, CIRRHOSIS) Hx Alcohol Use: No Hx Substance Use: No Hx Tobacco Use: No Smoking Status: Never smoker Physical Exam Vitals Vital Signs Date Temp Pulse Resp B/P (MAP) Pulse Ox O2 O2 Flow FiO2 Time Delivery Rate 08/15/18 98.8 77 18 109/71 99 Room Air 19:50 (84) 08/15/18 98.8 73 18 133/79 99 Room Air 18:45 (97) 08/15/18 98.8 76 22 129/75 100 15:44 (93) Physical Exam GENERAL: Well-developed, well-nourished, moderate discomfort, afebrile HEENT: Moist mucous membranes, pink conjunctiva, no cervical spine tenderness or step-off deformities, no goiter, no jaundice or icterus, extraocular movements intact without pain. No submandibular induration, and no pharyngeal erythema NEURO: Alert and oriented 3, cranial nerves II through XII intact bilaterally, pupils equal round reactive to light, no focal deficits or facial asymmetry, sensation intact distally Strength 5/5 in upper and lower extremities bilaterally CARDIAC: Regular rate and rhythm, no murmurs rubs or gallops LUNGS: Clear bilaterally no wheezing crackles or stridor ABDOMEN: Positive hepatomegaly consistent with cirrhosis, large soft tender abdominal wall herniation about the size of an orange, irreducible with attempted manual reduction SKIN: Warm and dry to touch, no abrasions, contusions, or hematomas, no lacerations, no ecchymosis, no target lesions, and without ulcers EXTREMITIES: No clubbing cyanosis or edema, calves are bilaterally symmetrical, no Homans sign, no popliteal cord sign. Distal pulses equal and bilateral PSYCH: Normal affect without agitation or irritability Result Diagram: 08/17/18 0535 08/19/18 0438 Results 24 hrs Laboratory Tests Test 08/15/18 18:56 White Blood Count 7.5 10^3/ul Red Blood Count 4.02 10^6/ul Hemoglobin 11.3 g/dl Hematocrit 34.6 % Mean Corpuscular Volume 86.1 fl Mean Corpuscular Hemoglobin 28.1 pg Mean Corpuscular Hemoglobin Concent 32.7 g/dl Red Cell Distribution Width 15.3 % Platelet Count 72 10^3/UL Mean Platelet Volume 9.7 fl Immature Granulocytes % 0.700 % Neutrophils % % Segmented Neutrophils % (Manual) 91 % Band Neutrophils % (Manual) 2 % Lymphocytes % % Lymphocytes % (Manual) 2 % Monocytes % % Monocytes % (Manual) 4 % Eosinophils % % Basophils % % Basophils % (Manual) 1 % Nucleated Red Blood Cells % 0.0 /100WBC Immature Granulocytes # 0.050 10^3/ul Neutrophils # 10^3/ul Neutrophils # (Manual) 6.8 10^3/ul Band Neutrophils # 0.1 10^3/ul Lymphocytes (Manual) 0.1 10^3/ul Lymphocytes # 10^3/ul Monocytes # 10^3/ul Monocytes # (Manual) 0.3 10^3/ul Eosinophils # 10^3/ul Basophils # 10^3/ul Basophils # (Manual) 0.0 10^3/ul Nucleated Red Blood Cells # 10^3/ul Platelet Estimate DECREASED Giant Platelets 1 % Polychromasia 1+ Anisocytosis 1+ Microcytosis 1+ Prothrombin Time 14.9 Sec Prothrombin Time Ratio 1.2 INR International Normalized Ratio 1.16 Activated Partial Thromboplast Time 33.2 Sec Sodium Level 132 mmol/L Potassium Level 4.2 mmol/L Chloride Level 102 mmol/L Carbon Dioxide Level 19 mmol/L Anion Gap 11 Blood Urea Nitrogen 14 mg/dl Creatinine 0.71 mg/dl Est Glomerular Filtrat Rate mL/min > 60 mL/min Glucose Level 115 mg/dl Calcium Level 8.2 mg/dl Total Bilirubin 0.7 mg/dl Direct Bilirubin 0.00 mg/dl Indirect Bilirubin 0.7 mg/dl Aspartate Amino Transf (AST/SGOT) 46 IU/L Alanine Aminotransferase (ALT/SGPT) 29 IU/L Alkaline Phosphatase 154 IU/L Total Protein 6.9 g/dl Albumin 2.8 g/dl Globulin 4.10 g/dl Albumin/Globulin Ratio 0.68 Lipase 56 U/L Current Medications Medications Dose Sig/Sara Start Time Status Last (Trade) Ordered Route PRN Stop Time Admin Dose Reason Admin Sodium 1,000 ml @ Q1H STAT 08/15/18 DC 08/15/18 Chloride 1,000 mls/hr IV 18:32 18:42 08/15/18 19:31 Morphine 4 mg ONCE STAT 08/15/18 DC 08/15/18 Sulfate IV 18:32 18:42 (morphine) 08/15/18 18:36 Ondansetron 4 mg ONCE STAT 08/15/18 DC 08/15/18 HCl (Zofran IV 18:32 18:42 Inj) 08/15/18 18:36 Procedures/MDM IV line was established patient was placed on groundwater monitoring technician rhythm strip revealed a sinus rhythm at about 80 bpm with upright P and T waves. Patient was afebrile I administered 1 L normal saline IV, morphine 4 mg IV, Zofran [address] scan of the abdomen and pelvis was performed,IMPRESSION: 1. Large ventral abdominal wall hernia containing a short segment of small bowel. Correlate clinically for bowel incarceration or strangulation. There are mildly distended small bowel loops in the right abdomen. Findings suggestive of low grade obstruction or ileus. Recommend clinical correlation and follow-up imaging as indicated to ensure resolution. 2. Hepatic cirrhosis and portal hypertension as evidenced by moderate volume ascites, splenomegaly, and portosystemic collateral vessels. CBC and electrolytes were unremarkable, liver function tests unremarkable, coagulation profile normal. I consulted surgeon electronic wirer and he agreed to evaluate the patient, patient to be kept n.p.o. and will be taken to the OR Departure Diagnosis: Primary Impression: Incarcerated hernia Condition: JULES Zhou MD Aug 15, 2018 20:06
[2018-08-15] MEDS ORDERED: SOD CHLORIDE 0.9% 1,000 ML IV SCH ×2 (20:23→23:24)
[2018-08-15] MEDS ORDERED: NACL 0.9% 3 ML SYG IV SCH (20:30)
[2018-08-15] MEDS ORDERED: ACETAMINOPHEN 325 MG TAB PO PRN (20:30)
[2018-08-15] MEDS ORDERED: ONDANSETRON 4 MG INJ IV PRN ×3 (20:30→23:30)
--- NOTE | 2018-08-15 21:04 | CONS ---
Assessment/Plan Assessment/Plan Assessment/Plan (Daily) Incarcerated, possible strangulated, ventral hernia Extremely high risk - thrombocytopenia, cirrhosis, ascites, and portosystemic collaterals, splenomegaly Patient understands - no other option as there is small bowel in the hernia and he is extremely tender Needs urgent repair with possible mesh, possible bowel resection All benefits, risks, alternatives discussed in detail. All questions answered. The patient elects to proceed. Consultation Date/Type/Reason Admit Date/Time Date of Consultation: Aug 15, 2018 Date/Time of Note DATE: 08/15/18 TIME: 20:58 Hx of Present Illness The patient is a 52-year-old male with a known umbilical hernia. He has had it for approximately a year. This morning, he developed pain. The bulge was unable to be go away. It persisted throughout the day and cause more pain. He presented to the ER. His workup was consistent with an incarcerated hernia. I was called for consultation. Past Medical History Medical History: GERD, other (Cirrhosis) Home Meds Reported Medications Pantoprazole* (Pantoprazole*) 40 Mg Tablet.dr, 40 MG PO AC BREAKFAST, TAB 07/23/18 Spironolactone* (Aldactone*) 50 Mg Tablet, 50 MG PO DAILY, #30 TAB 07/15/18 Furosemide* (Furosemide*) 20 Mg Tablet, 20 MG PO DAILY, #60 TAB 07/15/18 Medications Current Medications Sodium Chloride 1,000 ml @ 50 mls/hr Q20H IV ; Start 08/15/18 at 20:23 IV Flush (NS 3 ml) 3 ml PER PROTOCOL IV ; Start 08/15/18 at 20:30 Ondansetron HCl (Zofran Inj) 4 mg Q6H PRN IV NAUSEA/VOMITING; Start 08/15/18 at 20:30 Acetaminophen (Tylenol Tab) 650 mg Q6H PRN PO .PAIN 1-3 OR TEMP; Start 08/15/18 at 20:30 Morphine Sulfate (morphine) 2 mg Q4H PRN IV .SEVERE PAIN 7-10; Start 08/15/18 at 20:30 Allergies: Coded Allergies: No Known Allergy (Unverified , 08/06/18) Past Surgical History Past Surgical Hx: no surgical history, other Family History Significant Family History: no pertinent family hx Social History Alcohol Use: heavy Smoking Status: Never smoker Exam/Review of Systems Exam Vitals Vital Signs Date Temp Pulse Resp B/P (MAP) Pulse Ox O2 O2 Flow FiO2 Time Delivery Rate 08/15/18 98.8 71 13 126/79 99 Room Air 20:32 (95) Constitutional: alert, oriented, well developed, other (dehydrated) Head: normocephalic Eyes: nl conjunctiva ENMT: nl external ears & nose Neck: supple Respiratory: clear to auscultation Cardiovascular: regular rate and rhythm Gastrointestinal: other (Nonreducible, tender, ventral hernia containing bowel) Extremities: normal pulses Neurological: TRAM DRIVER II-XII intact, nl mental status Skin: nl turgor, rash or lesions Lymph: nl lymph nodes Results Result Diagram: 08/15/186 08/15/18 1856 Results 24hrs Laboratory Tests Test 08/15/18 18:56 White Blood Count 7.5 # Red Blood Count 4.02 L Hemoglobin 11.3 L Hematocrit 34.6 L Mean Corpuscular Volume 86.1 Mean Corpuscular Hemoglobin 28.1 L Mean Corpuscular Hemoglobin Concent 32.7 Red Cell Distribution Width 15.3 H Platelet Count 72 L Mean Platelet Volume 9.7 Immature Granulocytes % 0.700 H Neutrophils % Segmented Neutrophils % (Manual) 91 H Band Neutrophils % (Manual) 2 Lymphocytes % Lymphocytes % (Manual) 2 L Monocytes % Monocytes % (Manual) 4 Eosinophils % Basophils % Basophils % (Manual) 1 Nucleated Red Blood Cells % 0.0 Immature Granulocytes # 0.050 H Neutrophils # Neutrophils # (Manual) 6.8 Band Neutrophils # 0.1 Lymphocytes (Manual) 0.1 L Lymphocytes # Monocytes # Monocytes # (Manual) 0.3 Eosinophils # Basophils # Basophils # (Manual) 0.0 Nucleated Red Blood Cells # Platelet Estimate DECREASED Giant Platelets 1 H Polychromasia 1+ Anisocytosis 1+ Microcytosis 1+ Prothrombin Time 14.9 Prothrombin Time Ratio 1.2 INR International Normalized Ratio 1.16 Activated Partial Thromboplast Time 33.2 Sodium Level 132 L Potassium Level 4.2 Chloride Level 102 Carbon Dioxide Level 19 L Anion Gap 11 Blood Urea Nitrogen 14 Creatinine 0.71 Est Glomerular Filtrat Rate mL/min > 60 Glucose Level 115 Calcium Level 8.2 L Total Bilirubin 0.7 Direct Bilirubin 0.00 Indirect Bilirubin 0.7 Aspartate Amino Transf (AST/SGOT) 46 Alanine Aminotransferase (ALT/SGPT) 29 Alkaline Phosphatase 154 H Total Protein 6.9 Albumin 2.8 L Globulin 4.10 H Albumin/Globulin Ratio 0.68 Lipase 56 Imaging Imaging Patient: OSVALDO SUH : 1965 Age: 52 Sex: M MR #: [id number] [facility] #: [id number] DOS: 08/15/18 1836 Ordering MD: JULES ROMERO MD Location: E/R Room/Bed: PROCEDURE: CT Abdomen and Pelvis without intravenous contrast. CLINICAL INDICATION: Abdominal pain . TECHNIQUE: CT scan of the abdomen and pelvis without intravenous contrast was performed on a multi-detector high-resolution CT scanner. Coronal and sagittal reformatted images were obtained from the axial source images. DICOM images are available. CTDIvol 10.57 mGy, and DLP 705.25 mGy.cm. One or more of the following dose reduction techniques were used: - Automated exposure control. - Adjustment of the mA and/or kV according to patient size. - Use of iterative reconstruction technique. COMPARISON: CT 06/25/2018 FINDINGS: In the absence of intravenous contrast, the study constitutes a limited assessment of the solid organs, bowel and vessels. Lower thorax: There are coronary artery calcifications. Liver: Nodular surface contour of the liver compatible with cirrhosis. Biliary: Gallbladder is normal. No intrahepatic or extrahepatic biliary dilatation. Pancreas: Normal. Spleen: Spleen is enlarged, with craniocaudal length of 14.4 cm. Adrenal Glands: Normal. Urinary: Normal. Gastrointestinal: There is a short segment of nondistended small bowel in the large ventral abdominal wall hernia. There are mildly distended small bowel loops in the right abdomen. Appendix is unremarkable. Lymph nodes: No enlarged abdominal or pelvic lymph nodes. Vascular: There are mild atherosclerotic calcifications of the aorta and iliac branches, without evidence of aneurysm. Perisplenic and perigastric collateral vessels are noted. Peritoneum/mesentery: Moderate volume ascites. No free air. Large ventral abdominal wall hernia containing ascites fluid and short segment of small bowel. Reproductive organs: Normal. Musculoskeletal: Degenerative changes of the spine. Other: Redemonstrated bilateral gynecomastia. IMPRESSION: 1. Large ventral abdominal wall hernia containing a short segment of small bowel. Correlate clinically for bowel incarceration or strangulation. There are mildly distended small bowel loops in the right abdomen. Findings suggestive of low grade obstruction or ileus. Recommend clinical correlation and follow-up imaging as indicated to ensure resolution. 2. Hepatic cirrhosis and portal hypertension as evidenced by moderate volume ascites, splenomegaly, and portosystemic collateral vessels. RPTAT: AA Lasha Fong, Physician Date Time Electronically viewed and signed by Lasha Fong Physician on 08/15/2018 19:52 Medications Medication Current Medications Sodium Chloride 1,000 ml @ 50 mls/hr Q20H IV ; Start 08/15/18 at 20:23 IV Flush (NS 3 ml) 3 ml PER PROTOCOL IV ; Start 08/15/18 at 20:30 Ondansetron HCl (Zofran Inj) 4 mg Q6H PRN IV NAUSEA/VOMITING; Start 08/15/18 at 20:30 Acetaminophen (Tylenol Tab) 650 mg Q6H PRN PO .PAIN 1-3 OR TEMP; Start 08/15/18 at 20:30 Morphine Sulfate (morphine) 2 mg Q4H PRN IV .SEVERE PAIN 7-10; Start 08/15/18 at 20:30 MARY RAMIREZ MD Aug 15, 2018 21:04
[2018-08-15 21:15] VITALS: BP 119/67; PULSE 71; RESP 19
--- NOTE | 2018-08-15 21:18 | HP ---
Date/Time of Note Date/Time of Note DATE: 08/15/18 TIME: 21:18 Assessment/Plan VTE Prophylaxis SCD applied (from Nsg): Yes Pharmacological prophylaxis: NA/contraindicated Pharm contraindication: low risk/ambulating Lines/Catheters IV Catheter Type (from Nrsg): Saline Lock Assessment/Plan Hospital Course This is a 52-year-old male being admitted to the [facility] [place] [place] floor for: #1 incarcerated ventral hernia: With concern for possible strangulation. There are also signs of bowel obstruction versus ileus on the CT scan. At the current time we will keep the patient n.p.o., an NG tube has already been inserted. Gentle IV fluid hydration at the current time with normal saline in anticipation for surgery.. General surgery Dr. Anderson has been contacted by the ED who is planning an emergent procedure for incarcerated and possible strangulated ventral hernia. Antibiotic prophylaxis of Zosyn will be initiated. Further treatment strategy will be forthcoming after surgery and as per the surgeon's recommendations. #2 hyponatremia: Secondary likely to volume overload from underlying alcoholic ascites. At the current time though we will put the patient on normal saline gently given that he is going to surgery. He does have ascites and likely will need an additional paracentesis. #3 decompensated alcoholic liver cirrhosis: Patient does have sequelae of portal hypertension and moderate ascites. Further management with diuresis and possible paracentesis after his surgery is performed. Resumption of home medications when clinically able. Patient has been sober for 1 year he reports. #4 depression: Currently not any medications, follow-up with outpatient #5 normocytic anemia, chronic: Stable, continue to monitor no signs of active bleeding. #6 DVT GI prophylaxis: SCDs, no GI prophylaxis indicated Further treatment strategy will be implemented as per the clinical course. Result Diagram: 08/15/186 08/15/18 1856 Results 24hrs Laboratory Tests Test 08/15/18 18:56 White Blood Count 7.5 # Red Blood Count 4.02 L Hemoglobin 11.3 L Hematocrit 34.6 L Mean Corpuscular Volume 86.1 Mean Corpuscular Hemoglobin 28.1 L Mean Corpuscular Hemoglobin Concent 32.7 Red Cell Distribution Width 15.3 H Platelet Count 72 L Mean Platelet Volume 9.7 Immature Granulocytes % 0.700 H Neutrophils % Segmented Neutrophils % (Manual) 91 H Band Neutrophils % (Manual) 2 Lymphocytes % Lymphocytes % (Manual) 2 L Monocytes % Monocytes % (Manual) 4 Eosinophils % Basophils % Basophils % (Manual) 1 Nucleated Red Blood Cells % 0.0 Immature Granulocytes # 0.050 H Neutrophils # Neutrophils # (Manual) 6.8 Band Neutrophils # 0.1 Lymphocytes (Manual) 0.1 L Lymphocytes # Monocytes # Monocytes # (Manual) 0.3 Eosinophils # Basophils # Basophils # (Manual) 0.0 Nucleated Red Blood Cells # Platelet Estimate DECREASED Giant Platelets 1 H Polychromasia 1+ Anisocytosis 1+ Microcytosis 1+ Prothrombin Time 14.9 Prothrombin Time Ratio 1.2 INR International Normalized Ratio 1.16 Activated Partial Thromboplast Time 33.2 Sodium Level 132 L Potassium Level 4.2 Chloride Level 102 Carbon Dioxide Level 19 L Anion Gap 11 Blood Urea Nitrogen 14 Creatinine 0.71 Est Glomerular Filtrat Rate mL/min > 60 Glucose Level 115 Calcium Level 8.2 L Total Bilirubin 0.7 Direct Bilirubin 0.00 Indirect Bilirubin 0.7 Aspartate Amino Transf (AST/SGOT) 46 Alanine Aminotransferase (ALT/SGPT) 29 Alkaline Phosphatase 154 H Total Protein 6.9 Albumin 2.8 L Globulin 4.10 H Albumin/Globulin Ratio 0.68 Lipase 56 HPI/ROS Admit Date/Time Admit Date/Time Hx of Present Illness Chief complaint: Abdominal pain from hernia This is a 52-year-old male with a past medical history of cirrhosis along with umbilical hernia who presents today with abdominal pain from the hernia site. Patient reports that he has had hernia for approximately 1 year. He states that at approximately 10 AM today he started having pain in the hernia site and he was unable to reduce it. He has a history of alcoholic cirrhosis and he has had multiple paracentesis to drain fluid with the most recent being yesterday according to him. He denies any chest pain nausea vomiting or diarrhea. Denies any fevers. He reports that he did have a bowel movement today. He reports that he has been sober from alcohol for more than 1 year allergies: NKDA Medications: See Aug Const: As per HPI Eyes : No pain discharge or redness or change in visual acuity ENT: No pain, sore throat, congestion, congestion, dysphagia or discharge Respiratory: No shortness of breath, cough, sputum, wheezing, or pleuritic pain Cardiovascular: No chest pain, palpitation, PND, or edema GI : As per HPI Genitourinary: No dysuria, hematuria, flank pain , discharge or CVA tenderness Musculoskeletal: No joint pain, back pain, neck pain, restricted range of motion in neck or joints Skin: No rash, bruising or hives Neuro: No headache, dizziness, syncope, seizure, focal weakness Endocrine: No polyuria, polydipsia, temperature intolerance Psych: No hallucination, depression, anxiety or suicidal ideation PMH/Family/Social Past Medical History Alcoholic cirrhosis, depression, GERD Medications Current Medications Sodium Chloride 1,000 ml @ 50 mls/hr Q20H IV ; Start 08/15/18 at 20:23 IV Flush (NS 3 ml) 3 ml PER PROTOCOL IV ; Start 08/15/18 at 20:30 Ondansetron HCl (Zofran Inj) 4 mg Q6H PRN IV NAUSEA/VOMITING; Start 08/15/18 at 20:30 Acetaminophen (Tylenol Tab) 650 mg Q6H PRN PO .PAIN 1-3 OR TEMP; Start 08/15/18 at 20:30 Morphine Sulfate (morphine) 2 mg Q4H PRN IV .SEVERE PAIN 7-10; Start 08/15/18 at 20:30 Coded Allergies: No Known Allergy (Unverified , 08/06/18) Past Surgical History Multiple paracentesis, left knee surgery Past Surgical Hx: other Family History Significant Family History: no pertinent family hx Social History Alcohol Use: sober Smoking Status: Never smoker Drug Use: none Exam/Review of Systems Vital Signs Vitals Vital Signs Date Temp Pulse Resp B/P (MAP) Pulse Ox O2 O2 Flow FiO2 Time Delivery Rate 08/15/18 98.8 71 13 126/79 99 Room Air 20:32 (95) Exam Exam General: Patient is currently lying in bed in mild to moderate abdominal pain HEENT: Atraumatic, normocephalic. The pupils are equal, round and reactive. Extraocular motor are intact, NG tube in place Neck: Supple with full range of motion. No rigidity or meningismus Chest: Nontender Lungs: Clear to auscultation bilaterally no crackles rales or wheezing Heart: Normal S1-S2, Regular rhythm and rate. No murmur, S3, or S4 Abdomen: Protuberant abdomen with ascites, large ventral hernia nonreducible, hyperactive bowel sounds, no CVA tenderness bilaterally Extremities: Normal to inspection, no edema no cyanosis Neurologic: Normal mental status, speech normal, cranial nerves II through XII are intact, motor and sensory are intact, no focal weakness Additional Comments PROCEDURE: CT Abdomen and Pelvis without intravenous contrast. CLINICAL INDICATION: Abdominal pain . TECHNIQUE: CT scan of the abdomen and pelvis without intravenous contrast was performed on a multi-detector high-resolution CT scanner. Coronal and sagittal reformatted images were obtained from the axial source images. DICOM images are available. CTDIvol 10.57 mGy, and DLP 705.25 mGy.cm. One or more of the following dose reduction techniques were used: - Automated exposure control. - Adjustment of the mA and/or kV according to patient size. - Use of iterative reconstruction technique. COMPARISON: CT 06/25/2018 FINDINGS: In the absence of intravenous contrast, the study constitutes a limited assessment of the solid organs, bowel and vessels. Lower thorax: There are coronary artery calcifications. Liver: Nodular surface contour of the liver compatible with cirrhosis. Biliary: Gallbladder is normal. No intrahepatic or extrahepatic biliary dilatation. Pancreas: Normal. Spleen: Spleen is enlarged, with craniocaudal length of 14.4 cm. Adrenal Glands: Normal. Urinary: Normal. Gastrointestinal: There is a short segment of nondistended small bowel in the large ventral abdominal wall hernia. There are mildly distended small bowel loops in the right abdomen. Appendix is unremarkable. Lymph nodes: No enlarged abdominal or pelvic lymph nodes. Vascular: There are mild atherosclerotic calcifications of the aorta and iliac branches, without evidence of aneurysm. Perisplenic and perigastric collateral vessels are noted. Peritoneum/mesentery: Moderate volume ascites. No free air. Large ventral abdominal wall hernia containing ascites fluid and short segment of small bowel. Reproductive organs: Normal. Musculoskeletal: Degenerative changes of the spine. Other: Redemonstrated bilateral gynecomastia. IMPRESSION: 1. Large ventral abdominal wall hernia containing a short segment of small bowel. Correlate clinically for bowel incarceration or strangulation. There are mildly distended small bowel loops in the right abdomen. Findings suggestive of low grade obstruction or ileus. Recommend clinical correlation and follow-up imaging as indicated to ensure resolution. 2. Hepatic cirrhosis and portal hypertension as evidenced by moderate volume ascites, splenomegaly, and portosystemic collateral vessels. RPTAT: AA Lasha Fong, Physician Date Time Electronically viewed and signed by Lasha Fong, Physician on 08/15/2018 19:52 HtN/ CC: JULES ROMERO MD [id number] SAKSHI DICKENS Aug 15, 2018 21:18
[2018-08-15 21:20] VITALS: Ht 154.9 cm; Wt 70.6 kg
--- NOTE | 2018-08-15 22:08 | PREAC ---
Date/Time of Note Date/Time of Note DATE: 08/15/18 TIME: 22:06 Anesthesia Eval and Record Evaluation Time Pre-Procedure Interview DATE: 08/15/18 TIME: 22:06 Age 52 Sex male NPO: 8 hrs Preoperative diagnosis incarcerated ventral hernia Planned procedure open repair of ventral hernia Past Medical History Past Medical History: Includes Cardio: HTN, Dyslipidemia Hepatic: Cirrhosis Surgery & Anesthesia Issues No known issue Meds Anticoagulation: No Beta Tom within 24 hr: No Reason Beta Tom not given: Pt. not on B-Tom Reported Medications Pantoprazole* (Pantoprazole*) 40 Mg Tablet.dr, 40 MG PO AC BREAKFAST, TAB 07/23/18 Spironolactone* (Aldactone*) 50 Mg Tablet, 50 MG PO DAILY, #30 TAB 07/15/18 Furosemide* (Furosemide*) 20 Mg Tablet, 20 MG PO DAILY, #60 TAB 07/15/18 Current Medications Sodium Chloride 1,000 ml @ 50 mls/hr Q20H IV ; Start 08/15/18 at 20:23 IV Flush (NS 3 ml) 3 ml PER PROTOCOL IV ; Start 08/15/18 at 20:30 Ondansetron HCl (Zofran Inj) 4 mg Q6H PRN IV NAUSEA/VOMITING; Start 08/15/18 at 20:30 Acetaminophen (Tylenol Tab) 650 mg Q6H PRN PO .PAIN 1-3 OR TEMP; Start 08/15/18 at 20:30 Morphine Sulfate (morphine) 2 mg Q4H PRN IV .SEVERE PAIN 7-10; Start 08/15/18 at 20:30 Piperacillin Sod/ Tazobactam Sod 100 ml @ 200 mls/hr Q6 IVPB ; Start 08/15/18 at 21:31 Meds reviewed: Yes Allergies Coded Allergies: No Known Allergy (Unverified , 08/06/18) Allergies Reviewed: Yes Labs/Studies Labs Reviewed: Reviewed by anesthesiologist Result Diagram: 08/15/18185508/15/181855 Laboratory Tests 08/15/18 18:56 Blood Bank Test 08/15/18 21:47 Blood Product Summary Counts Blood Type O POSITIVE test: N/A Pre-procedure Exam Last vitals Vital Signs Date Temp Pulse Resp B/P (MAP) Pulse Ox O2 O2 Flow FiO2 Time Delivery Rate 08/15/18 98.2 71 19 119/67 98 Room Air 21:15 (84) Airway: Adequate mouth opening, Adequate thyromental dist Mallampati: Mallampati II Teeth: Normal Lung: Normal Heart: Normal ASA Physical Status ASA physical status: 3 Emergency: None Planned Anesthetic General/MAC: ETT Planned Pain Management Parenteral pain med Pre-operative Attestations Prior to commencing anesthesia and surgery, the patient was re-evaluated, there was verification of: *The patient's identity *The results of appropriate recent lab work and preoperative vital signs *The above evaluation not changing prior to induction *Anesthetic plan, risk benefits, alternative and complications discussed with patient/family; questions answered; patient/family understands, accepts and wishes to proceed. FLACO HERNANDEZ MD Aug 15, 2018 22:08
[2018-08-15] MEDS ORDERED: SUCCINYLCHOLINE CHLORIDE 100 MG/5 ML SYG IV ONE (22:19)
[2018-08-15] MEDS ORDERED: LIDOCAINE 2% (SDV) 5 ML INJ ONE (22:19)
[2018-08-15] MEDS ORDERED: ETOMIDATE 20 MG INJ ONE (22:19)
[2018-08-15] MEDS ORDERED: PROPOFOL 0 ML ONE (22:19)
[2018-08-15] MEDS ORDERED: ROCURONIUM 50 MG INJ ONE (22:19)
[2018-08-15] MEDS ORDERED: BUPIVACAINE 0.25% (MPF) 30 ML INJ ONE (22:27)
[2018-08-15] MEDS ORDERED: CEFAZOLIN 1 GM INJ ONE (22:40)
[2018-08-15] MEDS ORDERED: ONDANSETRON 4 MG INJ ONE (22:41)
[2018-08-15] MEDS ORDERED: FAMOTIDINE 20 MG INJ ONE (22:41)
[2018-08-15] MEDS ORDERED: DEXAMETHASONE 4 MG/ML 5 ML INJ ONE (22:41)
[2018-08-15] MEDS ORDERED: SUGAMMADEX SODIUM 200 MG/2 ML VIAL IV ONE ×2 (22:59→23:13)
[2018-08-15] MEDS ORDERED: PROCHLORPERAZINE 10 MG INJ IV PRN (23:00)
[2018-08-15] MEDS ORDERED: FENTAnyl 50 MCG/ML VIAL IV PRN (23:00)
[2018-08-15] MEDS ORDERED: DIPHENHYDRAMINE 50 MG INJ IV PRN (23:00)
[2018-08-15] MEDS ORDERED: MEPERIDINE 25 MG INJ IV PRN (23:00)
[2018-08-15] MEDS ORDERED: HYDROmorphONE 1 MG/5 ML IV SYRINGE IV PRN ×3 (23:00)
--- NOTE | 2018-08-15 23:20 | SIPON ---
Date/Time of Note Date/Time of Note DATE: 08/15/18 TIME: 23:18 Operative Report Preoperative Diagnosis Incarcerated ventral hernia possible strangulation Postoperative Diagnosis Incarcerated ventral hernia Operation/Procedure Performed Repair of ventral hernia with mesh and reduction of small bowel obstruction Surgeon see signature line electrician station assistant None Anesthesia: general Estimated blood loss: minimal Transfusion Required none Specimen Hernia sac Grafts/Implants none Complications none MARY RAMIREZ MD Aug 15, 2018 23:20
--- NOTE | 2018-08-15 23:24 | OPR ---
Date/Time of Note Date/Time of Note DATE: 08/15/18 TIME: 23:20 Operative Report Procedure Date: Aug 15, 2018 Preoperative Diagnosis Incarcerated ventral hernia, possible strangulation Postoperative Diagnosis Incarcerated ventral hernia Operation/Procedure Performed Repair of ventral hernia with mesh and reduction of small bowel obstruction Surgeon see signature line Criminal Investigator None Anesthesia Type: general Anesthesiologist: FADY ENGEL MD Estimated Blood Loss: minimal Transfusion none Specimen Hernia sac Grafts/Implants none Complications none Pt Condition Post Procedure: stable Disposition: PACU Indications The patient is a 52-year-old male with an incarcerated, possibly strangulated, ventral hernia. It was unable to be reduced in the ER. There was causing a bowel obstruction. I discussed urgent repair with possible mesh and possible bowel resection. Patient understood he was a high surgical risk due to his cirrhosis. All benefits, risks, alternatives were discussed in detail. All questions answered. The patient elects to proceed. Procedure Description The patient was brought to operative room placed supine on table. After preop antibiotics and SCDs were applied, the patient was intubated the abdomen was cleaned, prepped, draped usual sterile fashion a generous midline vertical incision was made. Using electrocautery dissected through the skin and subcu tissue until I entered the hernia sac. There is a fair amount of ascites which was aspirated. The wound was then completely opened. There was small bowel, nonischemic, coming through the fascial defect. I opened the fascial defect inferiorly with electrocautery. I was able to reduce the small bowel back through the defect. I then excised the hernia sac by establish a plane between the hernia sac and subcutaneous tissue with electrocautery. The hernia sac was completely transected. I deployed a medium ventralex mesh to the fascial defect. It was pulled up against the abdominal wall. I sutured the 2 leaves of the mesh to the anterior abdominal fascia with 0 Ethibond and the 3 9 o'clock position. I sutured the polypropylene portion of the mesh at the 12 and 6 o'clock position to full-thickness abdominal wall. The mesh sat nicely cover the defect well. The subcu tissue was then closed over the mesh with interrupted 3-0 Vicryl. The skin was closed with marilyn. A Mepilex dressing was applied. The patient tired procedure well, was extubated in the OR, transferred to the recovery in stable condition. MARY RAMIREZ MDb 21, 2019 23:24
[2018-08-15] MEDS ORDERED: morphine 2 MG INJ IV PRN (23:30)
--- NOTE | 2018-08-15 23:49 | PAC ---
Date/Time of Note Date/Time of Note DATE: 08/15/18 TIME: 23:48 Post-Anesthesia Notes Post-Anesthesia Note Last documented vital signs Vital Signs Date Temp Pulse Resp B/P (MAP) Pulse Ox O2 O2 Flow FiO2 Time Delivery Rate 08/15/18 98.2 71 19 119/67 98 Room Air 21:15 (84) Activity: WNL Respiratory function: WNL Cardiovascular function: WNL Mental status: Baseline Pain reasonably controlled: Yes Hydration appropriate: Yes Nausea/Vomiting absent: Yes Comments BP: 118/75 HR: 80 RR: 15 T: 98 SaO2: 100% FLACO HERNANDEZ MD Aug 15, 2018 23:49
[2018-08-16] VITALS (30 sets, daily range): BP systolic 90–130; BP diastolic 55–90; PULSE 62–83; RESP 10–24
[2018-08-16] MEDS ORDERED: HYDROmorphONE 0.5 MG/0.5 ML SYG IV PRN
[2018-08-16] MEDS ORDERED: FENTAnyl 50 MCG/ML VIAL IV PRN
[2018-08-16] MEDS ORDERED: ONDANSETRON 4 MG INJ IV PRN
[2018-08-16] MEDS ORDERED: EPHEDrine SULFATE 50 MG/5 ML SYG IV PRN
[2018-08-16] MEDS ORDERED: DIPHENHYDRAMINE 50 MG INJ IV PRN
[2018-08-16] MEDS ORDERED: MEPERIDINE 25 MG INJ IV PRN
[2018-08-16] MEDS: morphine 2 MG INJ IV PRN ×2 (00:14→18:15)
[2018-08-16] MEDS: PIPER-TAZO 3.375 GM IV (PMX) 100 ML IVPB SCH ×5 (00:15→19:44)
[2018-08-16] MEDS: CEFAZOLIN 2 GM/50 ML (PMX) 50 ML IVPB SCH ×3 (01:35→16:00)
[2018-08-16] MEDS: ALBUMIN HUMAN 25% 100 ML IV SCH ×2 (04:32→05:22)
[2018-08-16] MEDS ORDERED: PANTOPRAZOLE 40 MG INJ IV SCH (06:00)
[2018-08-16] MEDS: PANTOPRAZOLE (EC) 40 MG TAB PO SCH (07:56)
[2018-08-16] MEDS ORDERED: MAGNESIUM SULFATE 2 GM/50 ML 50 ML IVPB ONE (16:00)
--- NOTE | 2018-08-16 16:21 | PN ---
Date/Time of Note Date/Time of Note DATE: 08/16/18 TIME: 16:18 Assessment/Plan Lines/Catheters IV Catheter Type (from Nrsg): Peripheral IV Young in Place (from Nrsg): Yes Assessment/Plan Assessment/Plan Postop day #1 status post repair of incarcerated ventral hernia Young in a.m. Advance to soft diet tomorrow. Discharge home from surgical perspective tomorrow if tolerates soft diet Subjective 24 Hr Interval Summary Constitutional: no complaints, improved Feeding: clear Pain Control: moderate Exam/Review of Systems Vital Signs Vitals Vital Signs Date Temp Pulse Resp B/P (MAP) Pulse Ox O2 O2 Flow FiO2 Time Delivery Rate 08/16/18 98.4 67 13 101/69 96 Room Air 15:00 (80) Intake and Output 08/15/18 08/15/18 08/16/18 1515:00 23:00 07:00 IntakeIntake Total 1093 ml OutputOutput Total 485 ml BalanceBalance 608 ml Exam Constitutional: alert, oriented, well developed Respiratory: clear to auscultation Cardiovascular: regular rate and rhythm Gastrointestinal: soft, distended Additional Comments Wound : C/D/I Results Result Diagram: 08/16/18 0507 08/16/18 0507 MARY RAMIREZ MD Aug 16, 2018 16:20
--- NOTE | 2018-08-16 22:17 | PN ---
Date/Time of Note Date/Time of Note DATE: 08/16/18 TIME: 22:17 Assessment/Plan VTE Prophylaxis Risk score (from Ns)>0 risk: 3 SCD applied (from Ns): Yes Pharmacological prophylaxis: NA/contraindicated Pharm contraindication: low risk/ambulating Lines/Catheters IV [facility] (from [facility]): Peripheral IV Urinary Cath still in place: Yes Reason Cath still needed: urinary retention (clincical condition) Assessment/Plan Hospital Course #1 incarcerated ventral hernia: Postop day 1. Patient is doing well. He does report some gas pain. We will give him simethicone at the current time. He has been started on a diet per general surgery. If patient tolerates diet and does well possible discharge tomorrow as per general surgery. #2 leukocytosis: Mildly elevated, patient is afebrile. Likely reactive from surgery. We will continue to monitor closely. #3 hyponatremia: Improving, chronic from underlying decompensated alcoholic cirrhosis. #4 decompensated alcoholic liver cirrhosis: Initiate Lasix and spinal lactone in the a.m. #5 depression: Currently not any medications, follow-up with outpatient #6 normocytic anemia, chronic: No signs of active bleeding, continue to monitor.. #7 DVT GI prophylaxis: SCDs, Protonix Further treatment strategy will be implemented as per the clinical course. Result Diagram: 08/16/18 0507 08/16/18 0507 Results 24hrs Laboratory Tests Test 08/16/18 04:45 08/16/18 05:07 Lab Scanned Report BLOOD TRANSFUSION White Blood Count 11.9 #H Red Blood Count 3.42 L Hemoglobin 10.0 L Hematocrit 28.8 L Mean Corpuscular Volume 84.2 Mean Corpuscular Hemoglobin 29.2 Mean Corpuscular Hemoglobin Concent 34.7 Red Cell Distribution Width 15.2 H Platelet Count 81 L Mean Platelet Volume 9.5 Immature Granulocytes % 0.300 Neutrophils % 93.9 H Lymphocytes % 2.1 L Monocytes % 3.4 Eosinophils % 0.0 Basophils % 0.3 Nucleated Red Blood Cells % 0.0 Immature Granulocytes # 0.040 H Neutrophils # 11.1 H Lymphocytes # 0.3 L Monocytes # 0.4 Eosinophils # 0.0 Basophils # 0.0 Nucleated Red Blood Cells # 0.0 Sodium Level 133 L Potassium Level 4.3 Chloride Level 103 Carbon Dioxide Level 21 Anion Gap 9 Blood Urea Nitrogen 11 Creatinine 0.61 Est Glomerular Filtrat Rate mL/min > 60 Glucose Level 135 Hemoglobin A1c 5.1 Calcium Level 8.2 L Magnesium Level 1.6 L Total Bilirubin 0.5 Direct Bilirubin 0.00 Indirect Bilirubin 0.5 Aspartate Amino Transf (AST/SGOT) 37 Alanine Aminotransferase (ALT/SGPT) 26 Alkaline Phosphatase 106 Total Protein 6.2 Albumin 2.8 L Globulin 3.40 H Albumin/Globulin Ratio 0.82 Triglycerides Level 53 Cholesterol Level 96 L LDL Cholesterol, Calculated 41 HDL Cholesterol 44 Cholesterol/HDL Ratio 2.1 Thyroid Stimulating Hormone (TSH) 0.502 Subjective 24 Hr Interval Summary Free Text/Dictation Patient doing well postop. He does report some gas pain. He has been ambulating. He is also been started on a diet per general surgery. Exam/Review of Systems Exam Vitals Vital Signs Date Temp Pulse Resp B/P (MAP) Pulse Ox O2 O2 Flow FiO2 Time Delivery Rate 08/16/18 98.2 70 16 105/63 99 20:00 (77) 08/16/18 Room Air 18:35 Intake and Output 08/15/18 08/15/18 08/16/18 1515:00 23:00 07:00 IntakeIntake Total 1093 ml OutputOutput Total 485 ml BalanceBalance 608 ml Exam General: Patient in no acute distress. HEENT: Atraumatic, normocephalic. The pupils are equal, round and reactive. Extraocular motor are intact Neck: Supple with full range of motion. No rigidity or meningismus Chest: Nontender Lungs: Clear to auscultation bilaterally no crackles rales or wheezing Heart: Normal S1-S2, Regular rhythm and rate. No murmur, S3, or S4 Abdomen: Soft, mildly distended abdomen, nontender, surgical dressing clean dry and intact Extremities: Normal to inspection, no edema no cyanosis Neurologic: Normal mental status, speech normal, cranial nerves II through XII are intact, motor and sensory are intact, no focal weakness Results Results 24hrs Laboratory Tests Test 08/16/18 04:45 08/16/18 05:07 Lab Scanned Report BLOOD TRANSFUSION White Blood Count 11.9 #H Red Blood Count 3.42 L Hemoglobin 10.0 L Hematocrit 28.8 L Mean Corpuscular Volume 84.2 Mean Corpuscular Hemoglobin 29.2 Mean Corpuscular Hemoglobin Concent 34.7 Red Cell Distribution Width 15.2 H Platelet Count 81 L Mean Platelet Volume 9.5 Immature Granulocytes % 0.300 Neutrophils % 93.9 H Lymphocytes % 2.1 L Monocytes % 3.4 Eosinophils % 0.0 Basophils % 0.3 Nucleated Red Blood Cells % 0.0 Immature Granulocytes # 0.040 H Neutrophils # 11.1 H Lymphocytes # 0.3 L Monocytes # 0.4 Eosinophils # 0.0 Basophils # 0.0 Nucleated Red Blood Cells # 0.0 Sodium Level 133 L Potassium Level 4.3 Chloride Level 103 Carbon Dioxide Level 21 Anion Gap 9 Blood Urea Nitrogen 11 Creatinine 0.61 Est Glomerular Filtrat Rate mL/min > 60 Glucose Level 135 Hemoglobin A1c 5.1 Calcium Level 8.2 L Magnesium Level 1.6 L Total Bilirubin 0.5 Direct Bilirubin 0.00 Indirect Bilirubin 0.5 Aspartate Amino Transf (AST/SGOT) 37 Alanine Aminotransferase (ALT/SGPT) 26 Alkaline Phosphatase 106 Total Protein 6.2 Albumin 2.8 L Globulin 3.40 H Albumin/Globulin Ratio 0.82 Triglycerides Level 53 Cholesterol Level 96 L LDL Cholesterol, Calculated 41 HDL Cholesterol 44 Cholesterol/HDL Ratio 2.1 Thyroid Stimulating Hormone (TSH) 0.502 Medications Medication Current Medications Sodium Chloride 1,000 ml @ 50 mls/hr Q20H IV ; Start 08/15/18 at 20:23; Status Hold IV Flush (NS 3 ml) 3 ml PER PROTOCOL IV ; Start 08/15/18 at 20:30 Ondansetron HCl (Zofran Inj) 4 mg Q6H PRN IV NAUSEA/VOMITING; Start 08/15/18 at 20:30 Acetaminophen (Tylenol Tab) 650 mg Q6H PRN PO .PAIN 1-3 OR TEMP; Start 08/15/18 at 20:30 Morphine Sulfate (morphine) 2 mg Q4H PRN IV .SEVERE PAIN 7-10 Last administered on 08/16/18at 18:15; Admin Dose 2 MG; Start 08/15/18 at 20:30 Piperacillin Sod/ Tazobactam Sod 100 ml @ 200 mls/hr Q6 IVPB Last administered on 08/16/18at 19:44; Admin Dose 200 MLS/HR; Start 08/15/18 at 21:31 Cefazolin Sodium/ Dextrose 50 ml @ 100 mls/hr Q8H IVPB Last administered on 08/16/18at 16:00; Admin Dose 100 MLS/HR; Start 08/15/18 at 23:30; Stop 08/16/18 at 23:29 Morphine Sulfate (morphine) 4 mg Q2H PRN IV PAIN LEVEL 6-10 Last administered on 08/16/18at 04:40; Admin Dose 4 MG; Start 08/15/18 at 23:30 Pantoprazole (Protonix Tab) 40 mg AC BREAKFAST PO Last administered on 08/16/18at 07:56; Admin Dose 40 MG; Start 08/16/18 at 07:05 SAKSHI DICKENS Aug 16, 2018 22:17
[2018-08-17] MEDS: traMADol 50 MG TAB PO PRN ×2 (01:08→17:13)
[2018-08-17] MEDS: PIPER-TAZO 3.375 GM IV (PMX) 100 ML IVPB SCH ×4 (01:08→17:13)
[2018-08-17 02:02] VITALS: BP 92/50; PULSE 72; RESP 18
[2018-08-17] MEDS: PANTOPRAZOLE (EC) 40 MG TAB PO SCH (05:44)
[2018-08-17 07:30] VITALS: BP 101/62; PULSE 61; RESP 17
[2018-08-17] MEDS ORDERED: FUROSEMIDE 20 MG TAB PO SCH (09:00)
[2018-08-17] MEDS ORDERED: SPIRONOLACTONE 50 MG TAB PO SCH (09:00)
[2018-08-17] MEDS ORDERED: LIDOCAINE 1% (MPF) 5 ML VIAL ONE (12:19)
--- NOTE | 2018-08-17 12:59 | PN ---
Date/Time of Note Date/Time of Note DATE: 08/17/18 TIME: 12:58 Assessment/Plan Lines/Catheters IV Catheter Type (from Nrs): Peripheral IV Young in Place (from Nrs): Yes Assessment/Plan Assessment/Plan Postop day #2 status post repair of incarcerated ventral hernia Will likely need repeat kishore as reaccumulation of his ascites will cause leakage from midline wound. If persists, may require drain placement. Otherwise recovering well. Subjective 24 Hr Interval Summary Constitutional: no complaints, improved Feeding: advancing diet Additional Comments Patient has had drainage from midline wound. Serosanguineous in nature. Exam/Review of Systems Vital Signs Vitals Vital Signs Date Temp Pulse Resp B/P (MAP) Pulse Ox O2 O2 Flow FiO2 Time Delivery Rate 08/17/18 98.7 61 17 101/62 100 Room Air 07:30 (75) Intake and Output 08/16/18 08/16/18 08/17/18 1414:59 22:59 06:59 IntakeIntake Total 1200 ml 200 ml 300 ml OutputOutput Total 425 ml 145 ml 600 ml BalanceBalance 775 ml 55 ml -300 ml Exam Constitutional: alert, oriented, well developed Neck: supple Respiratory: clear to auscultation Cardiovascular: regular rate and rhythm Gastrointestinal: soft, non-tender, other (Mildly distended with ascites) Results Result Diagram: 08/17/18 0535 08/17/18 0535 MARY RAMIREZ MD Aug 17, 2018 12:59
[2018-08-17 14:08] VITALS: BP 102/62; PULSE 68; RESP 17
--- NOTE | 2018-08-17 18:04 | PN ---
Date/Time of Note Date/Time of Note DATE: 08/17/18 TIME: 18:01 Assessment/Plan VTE Prophylaxis Risk score (from Ns)>0 risk: 7 SCD applied (from Ns): Yes Pharmacological prophylaxis: heparin Lines/Catheters IV Catheter Type (from Nrs): Peripheral IV Urinary Cath still in place: Yes Reason Cath still needed: urinary retention Assessment/Plan Hospital Course 52 yo male with etoh cirrhosis presented with strangulated ventral hernia, s/p emergent repair Strangulated hernia: - s/p repair 08/16 Cirrhosis with ascites: - Continue diuretics - May require serial paracentesis to manage ascites to allow incision to heal 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 Hyponatremia, hypervolemic: - Mild, free water restrict Dishcarge to self care in coming days when ascites seeping through wound stops Result Diagram: 08/17/18 0535 08/17/18 0535 Results 24hrs Laboratory Tests Test 08/17/18 05:35 White Blood Count 12.0 H Red Blood Count 3.59 L Hemoglobin 10.3 L Hematocrit 30.9 L Mean Corpuscular Volume 86.1 Mean Corpuscular Hemoglobin 28.7 L Mean Corpuscular Hemoglobin Concent 33.3 Red Cell Distribution Width 15.0 H Platelet Count 80 L Mean Platelet Volume 10.1 Immature Granulocytes % 0.500 H Neutrophils % 87.2 H Lymphocytes % 4.0 L Monocytes % 8.2 Eosinophils % 0.0 Basophils % 0.1 Nucleated Red Blood Cells % 0.0 Immature Granulocytes # 0.060 H Neutrophils # 10.5 H Lymphocytes # 0.5 L Monocytes # 1.0 H Eosinophils # 0.0 Basophils # 0.0 Nucleated Red Blood Cells # 0.0 Sodium Level 131 L Potassium Level 4.8 Chloride Level 104 Carbon Dioxide Level 22 Anion Gap 5 Blood Urea Nitrogen 14 Creatinine 0.87 Est Glomerular Filtrat Rate mL/min > 60 Glucose Level 121 Calcium Level 8.1 L Total Bilirubin 0.3 Direct Bilirubin 0.00 Indirect Bilirubin 0.3 Aspartate Amino Transf (AST/SGOT) 32 Alanine Aminotransferase (ALT/SGPT) 20 Alkaline Phosphatase 97 Total Protein 6.1 Albumin 2.7 L Globulin 3.40 H Albumin/Globulin Ratio 0.79 Subjective 24 Hr Interval Summary Free Text/Dictation 900 cc's of ascites drained today Patient still having some seepage of asites through midline wound Feels well Exam/Review of Systems Exam Vitals Vital Signs Date Temp Pulse Resp B/P (MAP) Pulse Ox O2 O2 Flow FiO2 Time Delivery Rate 08/17/18 98.9 68 17 102/62 99 Room Air 14:08 (75) Intake and Output 08/16/18 08/16/18 08/17/18 1515:00 23:00 07:00 IntakeIntake Total 1200 ml 100 ml 300 ml OutputOutput Total 465 ml 105 ml 600 ml BalanceBalance 735 ml -5 ml -300 ml Exam Alert oriented No encephelopathy present RRR Breathign comfortably Bulging belly, mildline incision with weeping ascitic fluid Results Results 24hrs Laboratory Tests Test 08/17/18 05:35 White Blood Count 12.0 H Red Blood Count 3.59 L Hemoglobin 10.3 L Hematocrit 30.9 L Mean Corpuscular Volume 86.1 Mean Corpuscular Hemoglobin 28.7 L Mean Corpuscular Hemoglobin Concent 33.3 Red Cell Distribution Width 15.0 H Platelet Count 80 L Mean Platelet Volume 10.1 Immature Granulocytes % 0.500 H Neutrophils % 87.2 H Lymphocytes % 4.0 L Monocytes % 8.2 Eosinophils % 0.0 Basophils % 0.1 Nucleated Red Blood Cells % 0.0 Immature Granulocytes # 0.060 H Neutrophils # 10.5 H Lymphocytes # 0.5 L Monocytes # 1.0 H Eosinophils # 0.0 Basophils # 0.0 Nucleated Red Blood Cells # 0.0 Sodium Level 131 L Potassium Level 4.8 Chloride Level 104 Carbon Dioxide Level 22 Anion Gap 5 Blood Urea Nitrogen 14 Creatinine 0.87 Est Glomerular Filtrat Rate mL/min > 60 Glucose Level 121 Calcium Level 8.1 L Total Bilirubin 0.3 Direct Bilirubin 0.00 Indirect Bilirubin 0.3 Aspartate Amino Transf (AST/SGOT) 32 Alanine Aminotransferase (ALT/SGPT) 20 Alkaline Phosphatase 97 Total Protein 6.1 Albumin 2.7 L Globulin 3.40 H Albumin/Globulin Ratio 0.79 Medications Medication Current Medications Sodium Chloride 1,000 ml @ 50 mls/hr Q20H IV ; Start 08/15/18 at 20:23; Status Hold IV Flush (NS 3 ml) 3 ml PER PROTOCOL IV ; Start 08/15/18 at 20:30 Ondansetron HCl (Zofran Inj) 4 mg Q6H PRN IV NAUSEA/VOMITING; Start 08/15/18 at 20:30 Acetaminophen (Tylenol Tab) 650 mg Q6H PRN PO .PAIN 1-3 OR TEMP; Start 08/15/18 at 20:30 Morphine Sulfate (morphine) 2 mg Q4H PRN IV .SEVERE PAIN 7-10 Last administered on 08/16/18 18:15; Admin Dose 2 MG; Start 08/15/18 at 20:30 Piperacillin Sod/ Tazobactam Sod 100 ml @ 200 mls/hr Q6 IVPB Last administered on 08/17/18 17:13; Admin Dose 200 MLS/HR; Start 08/15/18 at 21:31 Morphine Sulfate (morphine) 4 mg Q2H PRN IV PAIN LEVEL 6-10 Last administered on 08/16/18 04:40; Admin Dose 4 MG; Start 08/15/18 at 23:30 Pantoprazole (Protonix Tab) 40 mg AC BREAKFAST PO Last administered on 08/17/18 05:44; Admin Dose 40 MG; Start 08/16/18 at 07:05 Tramadol HCl (Ultram) 50 mg Q6H PRN PO MODERATE PAIN LEVEL 4-6 Last admini stered on 08/17/18 17:13; Admin Dose 50 MG; Start 08/17/18 at 01:00 Simethicone (Mylicon) 80 mg Q6H PRN PO DISTENSION/GAS/BLOATING Last administered on 08/17/18 01:07; Admin Dose 80 MG; Start 08/17/18 at 01:00 Furosemide (Lasix) 20 mg DAILY PO Last administered on 08/17/18 08:41; Admin Dose 20 MG; Start 08/17/18 at 09:00 Spironolactone (Aldactone) 50 mg DAILY PO ; Start 08/17/18 at 09:00 ANDREIA GRAMAJO MD Aug 17, 2018 18:04
[2018-08-17] MEDS: FUROSEMIDE 20 MG TAB PO SCH (18:38)
[2018-08-17 20:29] VITALS: BP 110/66; PULSE 66; RESP 16
[2018-08-18] MEDS: traMADol 50 MG TAB PO PRN (00:42)
[2018-08-18 02:11] VITALS: BP 98/62; PULSE 58; RESP 16
[2018-08-18] MEDS: PANTOPRAZOLE (EC) 40 MG TAB PO SCH (06:14)
[2018-08-18] MEDS: FUROSEMIDE 20 MG TAB PO SCH ×2 (06:14→17:54)
[2018-08-18 07:25] VITALS: BP 109/67; RESP 17
[2018-08-18 08:41] VITALS: BP 110/69; PULSE 63
[2018-08-18] MEDS: SPIRONOLACTONE 50 MG TAB PO SCH (08:42)
--- NOTE | 2018-08-18 09:05 | PN ---
Date/Time of Note Date/Time of Note DATE: 08/18/18 TIME: 09:03 Assessment/Plan Lines/Catheters IV Catheter Type (from Nrsg): Peripheral IV Young in Place (from Nrsg): Yes Assessment/Plan Assessment/Plan Postop day #2 status post ventral hernia secondary to incarcerated small bowel Continues to drain ascites through midline wound. Had paracentesis yesterday wh ich improved the drainage but ascites has reaccumulated Will need drainage placed to manage ascites in order to help wound heal Ordered ultrasound-guided placement of drain Subjective 24 Hr Interval Summary Constitutional: other (Patient complaining of persistent drainage through midline wound.) Pain Control: well controlled Exam/Review of Systems Vital Signs Vitals Vital Signs Date Temp Pulse Resp B/P (MAP) Pulse Ox O2 O2 Flow FiO2 Time Delivery Rate 08/18/18 63 110/69 08:41 (83) 08/18/18 99.0 17 100 Room Air 07:25 Intake and Output 08/17/18 08/17/18 08/18/18 1515:00 23:00 07:00 IntakeIntake Total 480 ml 340 ml 120 ml OutputOutput Total 1400 ml 600 ml BalanceBalance 480 ml -1060 ml -480 ml Exam Constitutional: alert, oriented, well developed Respiratory: clear to auscultation, normal air movement Cardiovascular: regular rate and rhythm Gastrointestinal: soft, other (Moderately distended with ascites draining from midline wound) Results Result Diagram: 08/17/18 0535 08/17/18 0535 MARY RAMIREZ MD Aug 18, 2018 09:04
[2018-08-18 14:08] VITALS: BP 97/68; PULSE 62; RESP 17
--- NOTE | 2018-08-18 15:00 | PN ---
Date/Time of Note Date/Time of Note DATE: 08/18/18 TIME: 14:59 Assessment/Plan VTE Prophylaxis Risk score (from Nsg)>0 risk: 4 SCD applied (from Nsg): Yes Pharmacological prophylaxis: heparin Lines/Catheters IV Catheter Type (from Nrsg): Saline Lock Urinary Cath still in place: Yes Reason Cath still needed: urinary retention Assessment/Plan Hospital Course 52 yo male with etoh cirrhosis presented with strangulated ventral hernia, s/p emergent repair Strangulated hernia: - s/p repair 08/16 Cirrhosis with ascites: - Continue diuretics - Will place paracentesis drain. 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 Hyponatremia, hypervolemic: - Mild, free water restrict Dishcarge to self care in coming days when ascites seeping through wound stops Result Diagram: 08/17/1835 08/17/1835 Subjective 24 Hr Interval Summary Free Text/Dictation Ascites still seeping through surgical wound Patient without complaints, feels well Exam/Review of Systems Exam Vitals Vital Signs Date Temp Pulse Resp B/P (MAP) Pulse Ox O2 O2 Flow FiO2 Time Delivery Rate 08/18/18 98.0 62 17 97/68 (78) 100 Room Air 14:08 Intake and Output 08/17/18 08/17/18 08/18/18 1515:00 23:00 07:00 IntakeIntake Total 480 ml 340 ml 120 ml OutputOutput Total 1400 ml 600 ml BalanceBalance 480 ml -1060 ml -480 ml Exam Aox3 pleasant No distress RRR CTAB Abdomen distended, midline surgical incision weeping ascities Medications Medication Current Medications IV Flush (NS 3 ml) 3 ml PER PROTOCOL IV ; Start 08/15/18 at 20:30 Ondansetron HCl (Zofran Inj) 4 mg Q6H PRN IV NAUSEA/VOMITING; Start 08/15/18 at 20:30 Acetaminophen (Tylenol Tab) 650 mg Q6H PRN PO .PAIN 1-3 OR TEMP; Start 08/15/18 at 20:30 Pantoprazole (Protonix Tab) 40 mg AC BREAKFAST PO Last administered on 08/18/18at 06:14; Admin Dose 40 MG; Start 08/16/18 at 07:05 Tramadol HCl (Ultram) 50 mg Q6H PRN PO MODERATE PAIN LEVEL 4-6 Last administered on 08/18/18 00:42; Admin Dose 50 MG; Start 08/17/18 at 01:00 Simethicone (Mylicon) 80 mg Q6H PRN PO DISTENSION/GAS/BLOATING Last administered on 08/17/18 01:07; Admin Dose 80 MG; Start 08/17/18 at 01:00 Furosemide (Lasix) 20 mg BID DIURETICS PO Last administered on 08/18/18 06:14; Admin Dose 20 MG; Start 08/17/18 at 18:30 Spironolactone (Aldactone) 100 mg DAILY PO Last administered on 08/18/18 08:42; Admin Dose 100 MG; Start 08/18/18 at 09:00 ANDREIA GRAMAJO MD Aug 18, 2018 15:00
[2018-08-18 19:43] VITALS: BP 96/59; PULSE 61; RESP 16
[2018-08-19 02:00] VITALS: BP 98/65; PULSE 60; RESP 16
[2018-08-19] MEDS: traMADol 50 MG TAB PO PRN ×2 (02:13→19:31)
[2018-08-19] MEDS: FUROSEMIDE 20 MG TAB PO SCH ×2 (06:00→18:00)
[2018-08-19] MEDS: PANTOPRAZOLE (EC) 40 MG TAB PO SCH (06:08)
[2018-08-19 07:50] VITALS: BP 108/68; PULSE 66; RESP 20
[2018-08-19] MEDS: SPIRONOLACTONE 50 MG TAB PO SCH (09:00)
--- NOTE | 2018-08-19 09:41 | PN ---
Date/Time of Note Date/Time of Note DATE: 08/19/18 TIME: 09:40 Assessment/Plan Lines/Catheters IV Catheter Type (from Nrsg): Saline Lock Young in Place (from Nrsg): Yes Assessment/Plan Assessment/Plan Scheduled for IR placement of ANNA drain today. If drainage stops midline wound should be okay for discharge tomorrow after drain placement. Subjective 24 Hr Interval Summary Constitutional: other (Still with some drainage from midline wound but improved) Feeding: advancing diet Pain Control: well controlled Exam/Review of Systems Vital Signs Vitals Vital Signs Date Temp Pulse Resp B/P (MAP) Pulse Ox O2 O2 Flow FiO2 Time Delivery Rate 08/19/18 98.9 66 20 108/68 99 07:50 (81) 08/18/18 Room Air 14:08 Intake and Output 08/18/18 08/18/18 08/19/18 1515:00 23:00 07:00 IntakeIntake Total 360 ml 540 ml 50 ml OutputOutput Total 725 ml 700 ml 400 ml BalanceBalance -365 ml -160 ml -350 ml Exam Constitutional: alert, oriented, well developed Respiratory: clear to auscultation Cardiovascular: regular rate and rhythm Gastrointestinal: soft, ascites Results Result Diagram: 08/17/18 0535 08/19/18 0438 MARY RAMIREZ MD Aug 19, 2018 09:41
[2018-08-19] MEDS ORDERED: LIDOCAINE 1% (MPF) 5 ML VIAL ONE (10:09)
[2018-08-19] MEDS ORDERED: MIDAZOLAM 1 MG/ML 2 ML INJ ONE (10:29)
[2018-08-19] MEDS ORDERED: FENTAnyl 50 MCG/ML VIAL ONE (10:29)
[2018-08-19] MEDS ORDERED: SOD CHLORIDE 0.9% 500 ML ONE (10:29)
--- NOTE | 2018-08-19 11:42 | HPN ---
Date/Time of Note Date/Time of Note DATE: 08/19/18 TIME: 11:41 Interval H&P Admission Note Pt. seen H&P reviewed: No system changes USMAN CHRISTOPHER MD Aug 19, 2018 11:42
[2018-08-19 14:33] VITALS: BP 102/67; PULSE 67; RESP 20
[2018-08-19 15:46] VITALS: BP 136/73; PULSE 86; RESP 20
[2018-08-19 16:11] VITALS: BP 96/62; PULSE 77; RESP 20
--- NOTE | 2018-08-19 16:31 | PN ---
Date/Time of Note Date/Time of Note DATE: 08/19/18 TIME: 16:29 Assessment/Plan VTE Prophylaxis Risk score (from Ns)>0 risk: 2 SCD applied (from Ns): Yes Pharmacological prophylaxis: NA/contraindicated Pharm contraindication: surgical contra Lines/Catheters IV [facility]from [facility] Saline Lock Assessment/Plan Hospital Course 52 yo male with etoh cirrhosis presented with strangulated ventral hernia, s/p emergent repair Strangulated hernia: - s/p repair 08/16 Cirrhosis with ascites: - Continue diuretics -Status post paracentesis drain today. 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 Hyponatremia, hypervolemic: - Mild, free water restrict Dishcarge to self care in coming days when ascites seeping through wound stops, DC tomorrow per surgery Result Diagram: 08/17/18 0535 08/19/18 0438 Results 24hrs Laboratory Tests Test 08/19/18 04:38 Sodium Level 130 L Potassium Level 4.2 Chloride Level 98 Carbon Dioxide Level 26 Anion Gap 6 Blood Urea Nitrogen 17 Creatinine 0.65 Est Glomerular Filtrat Rate mL/min > 60 Glucose Level 105 Calcium Level 7.8 L Total Bilirubin 0.3 Direct Bilirubin 0.00 Indirect Bilirubin 0.3 Aspartate Amino Transf (AST/SGOT) 34 Alanine Aminotransferase (ALT/SGPT) 26 Alkaline Phosphatase 115 Total Protein 5.6 L Albumin 2.5 L Globulin 3.10 Albumin/Globulin Ratio 0.80 Subjective 24 Hr Interval Summary Constitutional: no complaints Exam/Review of Systems Exam Vitals Vital Signs Date Temp Pulse Resp B/P (MAP) Pulse Ox O2 O2 Flow FiO2 Time Delivery Rate 08/19/18 98.6 77 20 96/62 (73) 97 16:11 08/18/18 Room Air 14:08 Intake and Output 08/18/18 08/18/18 08/19/18 1515:00 23:00 07:00 IntakeIntake Total 360 ml 540 ml 50 ml OutputOutput Total 725 ml 700 ml 400 ml BalanceBalance -365 ml -160 ml -350 ml Constitutional: alert, oriented Respiratory: clear to auscultation Cardiovascular: regular rate and rhythm Gastrointestinal: soft; No distended Musculoskeletal: nl extremities to inspection Results Results 24hrs Laboratory Tests Test 08/19/18 04:38 Sodium Level 130 L Potassium Level 4.2 Chloride Level 98 Carbon Dioxide Level 26 Anion Gap 6 Blood Urea Nitrogen 17 Creatinine 0.65 Est Glomerular Filtrat Rate mL/min > 60 Glucose Level 105 Calcium Level 7.8 L Total Bilirubin 0.3 Direct Bilirubin 0.00 Indirect Bilirubin 0.3 Aspartate Amino Transf (AST/SGOT) 34 Alanine Aminotransferase (ALT/SGPT) 26 Alkaline Phosphatase 115 Total Protein 5.6 L Albumin 2.5 L Globulin 3.10 Albumin/Globulin Ratio 0.80 Medications Medication Current Medications IV Flush (NS 3 ml) 3 ml PER PROTOCOL IV Last administered on 08/18/18 21:00; Admin Dose 3 ML; Start 08/15/18 at 20:30 Ondansetron HCl (Zofran Inj) 4 mg Q6H PRN IV NAUSEA/VOMITING; Start 08/15/18 at 20:30 Acetaminophen (Tylenol Tab) 650 mg Q6H PRN PO .PAIN 1-3 OR TEMP; Start 08/15/18 at 20:30 Pantoprazole (Protonix Tab) 40 mg AC BREAKFAST PO Last administered on 08/18/18 06:14; Admin Dose 40 MG; Start 08/16/18 at 07:05 Tramadol HCl (Ultram) 50 mg Q6H PRN PO MODERATE PAIN LEVEL 4-6 Last administered on 08/19/18 02:13; Admin Dose 50 MG; Start 08/17/18 at 01:00 Simethicone (Mylicon) 80 mg Q6H PRN PO DISTENSION/GAS/BLOATING Last administered on 08/17/18 01:07; Admin Dose 80 MG; Start 08/17/18 at 01:00 Furosemide (Lasix) 20 mg BID DIURETICS PO Last administered on 08/18/18 17:54; Admin Dose 20 MG; Start 08/17/18 at 18:30 Spironolactone (Aldactone) 100 mg DAILY PO Last administered on 08/18/18 08:42; Admin Dose 100 MG; Start 08/18/18 at 09:00 RENE RUIZ Aug 19, 2018 16:31
[2018-08-19] MEDS ORDERED: MAGNESIUM HYDROXIDE 30ML CUP PO ONE (20:00)
[2018-08-19] MEDS ORDERED: MAGNESIUM HYDROXIDE 30ML CUP PO PRN (20:00)
[2018-08-19 20:03] VITALS: BP 110/71; PULSE 90; RESP 19
[2018-08-20] MEDS: traMADol 50 MG TAB PO PRN (02:17)
[2018-08-20 02:29] VITALS: BP 94/62; PULSE 79; RESP 19
[2018-08-20 05:50] VITALS: BP 114/70; PULSE 76
[2018-08-20] MEDS: FUROSEMIDE 20 MG TAB PO SCH ×2 (05:50→18:00)
[2018-08-20] MEDS: PANTOPRAZOLE (EC) 40 MG TAB PO SCH (05:56)
[2018-08-20 07:24] VITALS: BP 104/66; PULSE 83; RESP 20
[2018-08-20] MEDS: SPIRONOLACTONE 50 MG TAB PO SCH (08:18)
[2018-08-20] MEDS ORDERED: TRAM50TA2 PO (12:04)
--- NOTE | 2018-08-20 12:04 | PDOCDIS ---
Discharge Instructions CONDITION [id number] Patient Condition: [id number] Good HOME CARE INSTRUCTIONS: [id number] Diet Instructions: [id number] Reduced Sodium ACTIVITY: [id number] Activity Restrictions: [id number] No Restrictions FOLLOW UP/APPOINTMENTS Follow-up Plan FOLLOW UP WITH YOUR PCP IN 1-2 WEEKS RENE RUIZ Aug 20, 2018 12:04
[2018-08-20 13:35] VITALS: BP 112/70; PULSE 80; RESP 20
--- NOTE | 2018-08-20 15:30 | DS ---
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 Patient did have persistent ascites and required a paracentesis drain in order for midline incision to heal. The patient was clear for DC per surgery, on the day of discharge patient's vitals, labs and physical exam are stable. Home Meds Active Scripts Tramadol HCl (Tramadol HCl) 50 Mg Tablet, 50 MG PO Q6H PRN for MODERATE PAIN LEVEL 4-6, #30 TAB Prov:RENE RUIZ 08/20/18 Reported Medications Pantoprazole* (Pantoprazole*) 40 Mg Tablet.dr, 40 MG PO AC BREAKFAST, TAB 07/23/18 Spironolactone* (Aldactone*) 50 Mg Tablet, 50 MG PO DAILY, #30 TAB 07/15/18 Furosemide* (Furosemide*) 20 Mg Tablet, 20 MG PO DAILY, #60 TAB 07/15/18 Follow-up Plan FOLLOW UP WITH YOUR PCP IN 1-2 WEEKS Primary Care Provider Care Physician No Primary Time spent on discharge: > 30 minutes RENE RUIZ Aug 20, 2018 15:30
== END 2018-08-20 18:30 | disposition home or self-care (01) | DRG 354 ==
LOC: E/R 15:15 → MS1 20:11 → ICU 23:42 → 2NE 08-16 18:25
PROVIDERS: ADMIT Family Medicine; ATTEND Internal Medicine
PROC: 0WUF0JZ Supplement Abdominal Wall with Synthetic Substitute, Open Approach (ICD-10-PCS; principal; 2018-08-15 22:30)
PROC: 0W9G3ZZ Drainage of Peritoneal Cavity, Percutaneous Approach (ICD-10-PCS; 2018-08-17)
PROC: 0W9G30Z Drainage of Peritoneal Cavity with Drainage Device, Percutaneous Approach (ICD-10-PCS; 2018-08-19)
DX: K43.6 Other and unspecified ventral hernia with obstruction, without gangrene (principal); E87.1 Hypo-osmolality and hyponatremia; K76.6 Portal hypertension; K70.31 Alcoholic cirrhosis of liver with ascites; D69.6 Thrombocytopenia, unspecified; D64.9 Anemia, unspecified; K21.9 Gastro-esophageal reflux disease without esophagitis; D73.1 Hypersplenism
CPT/HCPCS: 36415; 36430; 74176; 75989; 77012; 80048; 80053; 80061; 83036; 83690; 83735; 84443; 85025; 85610; 85730; 86644; 86850; 86900; 86901; 86920; 86945; 87040; 88302; 96374; 96375; C1729; C1781; J0690; J1100; J2250; J2270; J2405; J2543; J3010; J3475; J7030; J7040; P9035; P9047

== ENCOUNTER 2018-08-22 09:13 | Emergency (ER) | payer MEDICAID ==
[~2018-08-22] VITALS: Ht 167.6 cm; Wt 67.7 kg
[~2018-08-22 09:13] MED LIST changes: +TRAM50TA2 PO
[2018-08-22 09:34] VITALS: Ht 167.6 cm; Wt 67.7 kg
[2018-08-22] MEDS ORDERED: morphine 4 MG/ML VIAL IV STA (11:57)
[2018-08-22] MEDS ORDERED: SOD CHLORIDE 0.9% 100 ML ONE (12:18)
[2018-08-22] MEDS ORDERED: IOHEXOL 300MG/ML 150 ML BTL ONE (12:18)
--- NOTE | 2018-08-22 15:22 | ERD ---
ER Documentation Chief Complaint Chief Complaint Complain of abdominal pain x 3 days HPI This is a 52-year-old male with a past medical history of alcohol abuse, cirrhosis with ascites requiring frequent paracenteses, significant umbilical hernia complicated by recent incarceration requiring operative intervention on August 16, status post drain for ascites to allow for healing of the surgical scar, now presenting with mild general abdominal pain and leaking from his surgical site. The patient reports that the fluid leaking from the site is clear and yellow. It is not bloody or purulent. The patient also notes that his drain is working well and he is much less distended than normal. The patient does endorse general abdominal discomfort which has been chronic and ongoing since his surgery. He is most concerned about the leakage from the site. The patient denies nausea or vomiting. The patient denies changes to chela wel movements or urination. The patient denies feeling sick recently. The patient denies fever or chills. The patient has had no headache or vision changes. The patient does not endorse neck or back pain. The patient denies lightheadedness or dizziness. The patient has had no chest pain or trouble breathing. The patient has had no focal deficits. The patient has had no weakness or numbness or tingling to the face or extremities. ROS All systems reviewed and are negative except as per history of present illness. Medications Home Meds Active Scripts Tramadol HCl (Tramadol HCl) 50 Mg Tablet, 50 MG PO Q6H PRN for MODERATE PAIN LEVEL 4-6, #30 TAB Prov:RENE RUIZ 08/20/18 Reported Medications Pantoprazole* (Pantoprazole*) 40 Mg Tablet.dr, 40 MG PO AC BREAKFAST, TAB 07/23/18 Spironolactone* (Aldactone*) 50 Mg Tablet, 50 MG PO DAILY, #30 TAB 07/15/18 Furosemide* (Furosemide*) 20 Mg Tablet, 20 MG PO DAILY, #60 TAB 07/15/18 Allergies Allergies: Coded Allergies: No Known Allergy (Unverified , 08/06/18) PMhx/Soc History of Surgery: Yes (Umbilical hernia repair) Anesthesia Reaction: No Hx Neurological Disorder: No Hx Respiratory Disorders: No Hx Cardiac Disorders: No Hx Psychiatric Problems: No Hx Miscellaneous Medical Probl: Yes (Cirrhosis with ascites, umbilical hernia) Hx Alcohol Use: Yes Hx Tobacco Use: No Smoking Status: Former smoker FmHx Family History: No diabetes Physical Exam Vitals Vital Signs Date Temp Pulse Resp B/P (MAP) Pulse Ox O2 O2 Flow FiO2 Time Delivery Rate 08/22/18 71 18 105/67 97 Room Air 13:44 (80) 08/22/18 99.1 87 20 135/74 99 09:34 (94) Physical Exam Const: No apparent distress, well-developed, well-nourished Head: Normocephalic, Atraumatic Eyes: Normal Conjunctiva. Extraocular movements intact. Pupils equal, round and reactive to light ENT: Normal External Ears, Nose and Mouth. Neck: Full range of motion. No meningismus. Resp: Clear to auscultation bilaterally, No wheezes, rales or rhonchi Cardio: Regular rate and rhythm. No murmurs, rubs or gallops Abd: Soft, non tender. Mild distention. Right-sided paracentesis catheter in place draining serous fluid. Midline surgical site that is stapled with 1/2 cm location with minimal serous drainage. Normal bowel sounds Skin: No petechiae or rashes Back: No midline tenderness. No CVA tenderness Ext: No cyanosis, or edema Neur: Awake and alert, oriented 4. Cranial nerves intact. No facial droop. Normal strength, sensation and coordination. Psych: Normal Mood and Affect Result Diagram: 08/22/18 1104 08/22/18 1104 Results 24 hrs Laboratory Tests Test 08/22/18 11:04 White Blood Count 9.7 10^3/ul Red Blood Count 4.34 10^6/ul Hemoglobin 12.2 g/dl Hematocrit 35.8 % Mean Corpuscular Volume 82.5 fl Mean Corpuscular Hemoglobin 28.1 pg Mean Corpuscular Hemoglobin Concent 34.1 g/dl Red Cell Distribution Width 15.1 % Platelet Count 102 10^3/UL Mean Platelet Volume 9.7 fl Immature Granulocytes % 1.500 % Neutrophils % 76.0 % Lymphocytes % 8.6 % Monocytes % 10.9 % Eosinophils % 2.5 % Basophils % 0.5 % Nucleated Red Blood Cells % 0.0 /100WBC Immature Granulocytes # 0.150 10^3/ul Neutrophils # 7.4 10^3/ul Lymphocytes # 0.8 10^3/ul Monocytes # 1.1 10^3/ul Eosinophils # 0.2 10^3/ul Basophils # 0.1 10^3/ul Nucleated Red Blood Cells # 0.0 10^3/ul Sodium Level 126 mmol/L Potassium Level 4.4 mmol/L Chloride Level 97 mmol/L Carbon Dioxide Level 21 mmol/L Anion Gap 8 Blood Urea Nitrogen 18 mg/dl Creatinine 0.56 mg/dl Est Glomerular Filtrat Rate mL/min > 60 mL/min Glucose Level 138 mg/dl Calcium Level 7.9 mg/dl Total Bilirubin 0.5 mg/dl Direct Bilirubin 0.00 mg/dl Indirect Bilirubin 0.5 mg/dl Aspartate Amino Transf (AST/SGOT) 43 IU/L Alanine Aminotransferase (ALT/SGPT) 24 IU/L Alkaline Phosphatase 199 IU/L Total Protein 6.3 g/dl Albumin 2.9 g/dl Globulin 3.40 g/dl Albumin/Globulin Ratio 0.85 Lipase 121 U/L Current Medications Medications Dose Sig/Sara Start Time Status Last (Trade) Ordered Route PRN Stop Time Admin Dose Reason Admin Morphine 4 mg ONCE STAT 08/22/18 DC 08/22/18 Sulfate IV 11:57 12:17 (morphine) 08/22/18 12:00 IV Flush 10 ml STK-MED 08/22/18 DC 08/22/18 (NS 10 ml) ONCE .ROUTE 12:18 12:35 08/22/18 12:19 Sodium 100 ml @ ud STK-MED 08/22/18 DC 08/22/18 Chloride ONCE .ROUTE 12:18 12:35 08/22/18 12:19 Iohexol 150 ml STK-MED 08/22/18 DC 08/22/18 (Omnipaque ONCE .ROUTE 12:18 12:35 300mg/ ml) 08/22/18 12:19 Procedures/MDM MDM The patient's presentation warrants further investigation. Previous medical records, if available, were reviewed. LABS The patient's laboratory testing was obtained and reviewed. No emergent treatment was required unless described below. CBC: No E/o of systemic infection. Mild normocytic anemia, likely chronic. Mild thrombocytopenia, likely chronic. Chemistry: No E/o severe acidosis or alkalosis or renal failure or liver disease or diabetic ketoacidosis. Chronic hyponatremia. Chronic hypoalbuminemia. Lipase: No E/o pancreatitis IMAGING Imaging and Radiology interpretation reviewed. CT Abd/pelvis FINDINGS: Lower thorax: Normal. Liver: Again seen cirrhotic morphology of the liver with nodular contour and caudate lobe hypertrophy. No suspicious liver lesion. Patent portal vein. Biliary: Normal gallbladder. No biliary dilatation. Pancreas: Normal. Spleen: Persistent splenomegaly measuring 15.4 cm. Adrenal Glands: Normal. Genitourinary: Bilateral tiny renal hypodensities, likely cyst. Symmetric perfusion of both kidneys with no hydronephrosis. Bladder is mildly distended and unremarkable. Gastrointestinal: Stomach is moderately distended and contains ingested food. There is dilated loops of bowel in the left abdomen with diffuse wall thickening with enteritis in the differential diagnosis. No evidence of bowel obstruction. Normal caliber of the colon. Lymph nodes: No adenopathy. Vascular: Normal-caliber of the mildly calcified abdominal aorta. Again seen large gastrohepatic varices. Peritoneum/mesentery: Interval placement of the peritoneal drainage catheter in the right pelvis. There is significant improvement of the small diffuse ascites. Reproductive organs: Unremarkable. Musculoskeletal: Mild multilevel degenerative disc disease. Abdominal wall: There is a 10.5 x 3.9 x 9.4 cm (TR, AP, CC) walled off fluid collection within the subcutaneous tissue of the anterior abdominal wall left posterolateral to the skin sutures. Additional walled off collection with air fluid level just inferior to the skin surgical sutures and right lateral to the above mentioned fluid collection measures 6.1 x 3.8 x 5.0 cm (TR, AP, CC) with no visible communication to the superiorly located collection. Developing abscess is in the differential diagnosis. IMPRESSION: 1. Status post repair of the anterior midabdominal ventral hernia. There are 2 fluid collections within the subcutaneous tissue of the anterior abdominal wall, posterior and inferior to the skin surgical sutures, as detailed above. 2. Interval placement of the right pelvic peritoneal drainage catheter with significant improvement of the small diffuse ascites. 3. Again seen cirrhotic liver with evidence of portal hypertension including splenomegaly, ascites and upper abdominal varices. 4. Diffuse wall thickening of the mildly distended loops of small bowel in the left abdomen with enteritis in the differential diagnosis. Electronically viewed and signed by Physician Lawanda on 08/22/2018 13:10 TREATMENT/DISPOSITION The patient presents for serous drainage at his recent surgical site. A CT scan was evaluated that revealed 2 fluid collections. There also appears to be distended loops with bowel wall thickening, concerning for possible enteritis. I discussed the case with the patient's surgeon, Dr. Anderson, who is reassured by the patient's blood work. The patient has no leukocytosis. He is afebrile. He does not appear systemically ill. The patient is unlikely to have an abscess at this time. Given the patient's bowel wall thickening, I did opt to treat the patient with antibiotics. However, it was determined that the patient did not require admission for immediate intervention of these fluid collections. The patient has chronic ascites, and these collections are likely ascites over abscess. The patient does have sequelae from liver disease including anemia, thrombocytopenia, hyponatremia and hypoalbuminemia. These do not require emergent treatment. The patient was treated with a dose of morphine in the emergency department. LACERATION REPAIR Performed by me. Anesthesia: None Location: Abdominal surgical site Tendon/Joint/Nerves: No injury Foreign body: None detected after copious irrigation and exploration Technique: Dermabond Complexity: No subcutaneous sutures/mucosal repair/edge excision Post Closure Length: 1 cm Patient's bleeding was easily controlled in the department. No evidence of anemia, compartment syndrome, neurologic injury, vascular injury, open joint, tendon laceration, or foreign body. Patient is appropriate for outpatient follow up. 48 hour wound check recommended. Scar minimization instructions given. DISCHARGE Upon reevaluation of the patient, symptoms have improved. No emergent diagnoses were identified. At this time, I feel that the patient stable for discharge. The patient was instructed to follow-up with a primary care physician in 1-3 days. The patient will follow up with his surgeon next week. He reportedly has an appointment scheduled for Sunday. The patient will be given strict precautions with which to return to the emergency department. Prescriptions: Ciprofloxacin, Flagyl The patient's blood pressure was elevated at greater than 120/80 while in the emergency department. The patient was otherwise stable with no evidence of hypertensive urgency or emergency. The patient does not require admission for blood pressure control. I have discussed with the patient the risks of hypertension. I have instructed the patient to return to the ER for any new or worsening symptoms including chest pain, shortness of breath, headache, blurred vision, confusion, nausea, vomiting or LOC. I have advised the patient to follow up with the primary care physician for outpatient monitoring and treatment for hypertension in 1-3 days. Disclaimer: Inadvertent spelling and grammatical errors are likely due to EHR/dictation software use and do not reflect on the overall quality of patient care. Note that the electronic time recorded on this note does not necessarily reflect the actual time of the patient encounter. Departure Diagnosis: Primary Impression: Status post hernia repair Additional Impressions: Alcoholic cirrhosis of liver with ascites Normocytic anemia Thrombocytopenia Chronic hyponatremia Hypoalbuminemia Enteritis Condition: Stable ASMITA MORGAN MD Aug 22, 2018 15:22
[2018-08-22] MEDS ORDERED: CIPR500T4 PO (15:23)
[2018-08-22] MEDS ORDERED: METR500T PO (15:23)
[2018-08-22] MEDS ORDERED: ONDANSETRON 4 MG INJ IV STA (15:44)
[2018-08-22] MEDS ORDERED: ONDA4TAB8 PO (15:45)
[2018-08-22] MEDS ORDERED: ONDANSETRON 4 MG INJ ONE (15:45)
[2018-08-22 16:17] VITALS: BP 105/73; PULSE 66; RESP 18
== END 2018-08-22 16:18 | disposition home or self-care (01) ==
LOC: E/R 09:13
DX: K70.31 Alcoholic cirrhosis of liver with ascites (principal); D64.9 Anemia, unspecified; D69.6 Thrombocytopenia, unspecified; E87.1 Hypo-osmolality and hyponatremia; R77.0 Abnormality of albumin; K52.9 Noninfective gastroenteritis and colitis, unspecified; Z98.890 Other specified postprocedural states; Z87.891 Personal history of nicotine dependence
CPT/HCPCS: 12001; 74177; 80053; 83690; 85025; J2270; J2405; Q9967; Z7610; 96374; 96375

== ENCOUNTER 2018-08-25 16:38 | Emergency (ER) | payer MEDICAID ==
[~2018-08-25] VITALS: Ht 157.5 cm; Wt 64.0 kg
[~2018-08-25 16:38] MED LIST changes: +CIPR500T4 PO; +METR500T PO; +ONDA4TAB8 PO
[2018-08-25 16:45] VITALS: Ht 157.5 cm; Wt 64.0 kg
[2018-08-25] MEDS ORDERED: morphine 4 MG/ML VIAL IV STA (20:34)
--- NOTE | 2018-08-26 00:28 | ERD ---
ER Documentation Chief Complaint Chief Complaint leaking/pain from hernia repair Sx 3 days ago HPI This is a 52-year-old male with a past medical history of alcohol abuse, cirrhosis with ascites requiring frequent paracenteses, significant umbilical hernia complicated by recent incarceration requiring operative intervention on August 16, 2018, status post paracentesis drain drain for ascites to allow for healing of the surgical scar, now presenting with continued unchanged mild general abdominal pain, persistent leaking from his surgical site, and progression of his umbilical hernia. The patient reports that the fluid leaking from the site is clear and yellow. It is not bloody or purulent. The patient also notes that his drain appears to be working, but he is more distended than he was 2 days ago when he came to the emergency department last. The patient does endorse general abdominal discomfort which has been chronic and ongoing since his surgery. He is most concerned about the persistent leakage from the site. The patient denies nausea or vomiting. The patient denies changes to bowel movements or urination. The patient reports that he has not yet been able to fill the antibiotic prescriptions provided to him 2 days ago. The patient denies feeling sick recently. The patient denies fever or chills. The patient has had no headache or vision changes. The patient does not endorse neck or back pain. The patient denies lightheadedness or dizziness. The patient has had no chest pain or trouble breathing. The patient has had no focal deficits. The patient has had no weakness or numbness or tingling to the face or extremities. ROS All systems reviewed and are negative except as per history of present illness. Medications Home Meds Reported Medications Pantoprazole* (Pantoprazole*) 40 Mg Tablet.dr, 40 MG PO AC BREAKFAST, TAB 07/23/18 Furosemide* (Furosemide*) 20 Mg Tablet, 20 MG PO DAILY, #60 TAB 07/15/18 Discontinued Reported Medications Spironolactone* (Aldactone*) 50 Mg Tablet, 50 MG PO DAILY, #30 TAB 07/15/18 Discontinued Scripts Ondansetron Hcl* (Zofran*) 4 Mg Tablet, 4 MG PO Q6H for NAUSEA AND/OR VOMITING, #30 TAB Prov:ASMITA MORGAN MD 08/22/18 Metronidazole* (Flagyl*) 500 Mg Tablet, 500 MG PO TID for 7 Days, TAB Prov:ASMITA MORGAN MD 08/22/18 Ciprofloxacin Hcl* (Ciprofloxacin Hcl*) 500 Mg Tablet, 500 MG PO BID for 7 Days, TAB Prov:ASMITA MORGAN MD 08/22/18 Tramadol HCl (Tramadol HCl) 50 Mg Tablet, 50 MG PO Q6H PRN for MODERATE PAIN LEVEL 4-6, #30 TAB Prov:RENE RUIZ 08/20/18 Allergies Allergies: Coded Allergies: No Known Allergy (Unverified , 08/25/18) PMhx/Soc History of Surgery: Yes (Umbilical hernia repair) Anesthesia Reaction: No Hx Neurological Disorder: No Hx Respiratory Disorders: No Hx Cardiac Disorders: No Hx Psychiatric Problems: No Hx Miscellaneous Medical Probl: Yes (Cirrhosis with ascites, umbilical hernia) Hx Alcohol Use: Yes Hx Substance Use: No (UNKNOWN) Hx Tobacco Use: No Smoking Status: Never smoker Physical Exam Vitals Vital Signs Date Temp Pulse Resp B/P (MAP) Pulse Ox O2 O2 Flow FiO2 Time Delivery Rate 08/26/18 98.3 82 18 105/71 100 Room Air 02:59 (82) 08/25/18 98.9 82 16 110/68 100 Room Air 22:05 (82) 08/25/18 98.9 82 18 124/71 100 Room Air 18:37 (88) 08/25/18 99.5 106 18 128/75 100 16:45 (92) Physical Exam Const: No apparent distress, well-developed, well-nourished Head: Normocephalic, Atraumatic Eyes: Normal Conjunctiva. Extraocular movements intact. Pupils equal, round a nd reactive to light ENT: Normal External Ears, Nose and Mouth. Neck: Full range of motion. No meningismus. Resp: Clear to auscultation bilaterally, No wheezes, rales or rhonchi Cardio: Regular rate and rhythm. No murmurs, rubs or gallops Abd: Soft, non tender. Mild distention. Right-sided paracentesis catheter in place draining serous fluid that appears slightly more cloudy than when he was evaluated 2 days ago. Midline surgical site that is stapled with 1/2 cm location with minimal serous drainage, umbilical hernia more evident today. Normal bowel sounds Skin: No petechiae or rashes Back: No midline tenderness. No CVA tenderness Ext: No cyanosis, or edema Neur: Awake and alert, oriented 4. Cranial nerves intact. No facial droop. Normal strength, sensation and coordination. Psych: Normal Mood and Affect Result Diagram: 08/25/18181508/25/181815 Results 24 hrs Laboratory Tests Test 08/25/18 18:15 08/25/18 18:16 08/25/18 18:18 08/25/18 18:22 Prothrombin Time 14.3 Sec Prothrombin Time 1.1 Ratio INR International 1.10 Normalized Ratio Activated 30.9 Sec Partial Thromboplas t Time White Blood Count 11.0 10^3/ul Red Blood Count 4.39 10^6/ul Hemoglobin 12.3 g/dl Hematocrit 36.2 % Mean Corpuscular 82.5 fl Volume Mean Corpuscular 28.0 pg Hemoglobin Mean Corpuscular 34.0 g/dl Hemoglobin Concent Red Cell 15.3 % Distribution Width Platelet Count 106 10^3/UL Mean Platelet 9.3 fl Volume Immature 1.600 % Granulocytes % Neutrophils % 74.2 % Lymphocytes % 8.0 % Monocytes % 12.3 % Eosinophils % 3.3 % Basophils % 0.6 % Nucleated Red Blood 0.0 /100WBC Cells % Immature 0.180 10^3/ul Granulocytes # Neutrophils # 8.1 10^3/ul Lymphocytes # 0.9 10^3/ul Monocytes # 1.4 10^3/ul Eosinophils # 0.4 10^3/ul Basophils # 0.1 10^3/ul Nucleated Red Blood 0.0 10^3/ul Cells # Sodium Level 124 mmol/L Potassium Level 4.8 mmol/L Chloride Level 97 mmol/L Carbon Dioxide 21 mmol/L Level Anion Gap 6 Blood Urea Nitrogen 20 mg/dl Creatinine 0.92 mg/dl Est Glomerular > 60 mL/min Filtrat Rate mL/min Glucose Level 134 mg/dl Calcium Level 7.8 mg/dl Total Bilirubin 0.5 mg/dl Direct Bilirubin 0.00 mg/dl Indirect Bilirubin 0.5 mg/dl Aspartate Amino 58 IU/L Transf (AST/SGOT) Alanine 33 IU/L Aminotransferase (A LT/SGPT) Alkaline 226 IU/L Phosphatase Total Protein 5.9 g/dl Albumin 2.7 g/dl Globulin 3.20 g/dl Albumin/Globulin 0.84 Ratio Lipase 178 U/L Body Fluid Type ANNA FLUID Body Fluid Volume 45.0 ml Body Fluid Color YELLOW Body Fluid CLOUDY Appearance Body Fluid WBC 287 /cmm Body Fluid RBC 1000 /uL (Auto) Body Fluid 12.2 % Polynuclear WBCs (%) Body Fluid 87.8 % Mononuclear Cells % Auto Urine Color ANTONIA Urine Clarity CLEAR Urine pH 5.0 Urine Specific 1.028 [place] Urine Ketones NEGATIVE mg/dL Urine Nitrite NEGATIVE mg/dL Urine Bilirubin NEGATIVE mg/dL Urine Urobilinogen 1+ mg/dL Urine Leukocyte NEGATIVE [place]/ul Esterase Urine Hemoglobin NEGATIVE mg/dL Urine Glucose NEGATIVE mg/dL Urine Total Protein NEGATIVE mg/dl Test 08/25/18 19:50 08/25/18 21:50 Lactic Acid Level 1.4 mmol/L 1.4 mmol/L Current Medications Medications Dose Sig/Sara Start Time Status Last (Trade) Ordered Route PRN Stop Time Admin Dose Reason Admin Morphine 4 mg ONCE STAT 08/25/18 DC 08/25/18 Sulfate IV 20:34 08/25/18 20:46 (morphine) 20:39 100 ml @ ONCE ONCE 08/26/18 DC 08/26/18 Metronidazole 100 mls/hr IVPB 00:30 08/26/18 01:45 01:29 100 ml @ ONCE ONCE 08/26/18 DC 08/26/18 Levofloxacin/ 100 mls/hr IVPB 00:30 08/26/18 00:30 Dextrose 01:29 Procedures/MDM MDM The patient's presentation warrants further investigation. Previous medical raoul rds, if available, were reviewed. LABS The patient's laboratory testing was obtained and reviewed. No emergent treatment was required unless described below. CBC: Mild leukocytosis without shift, likely reactive, appears to be chronic based on previous studies. Chronic anemia and thrombocytopenia, likely related to his alcoholic cirrhosis. Chemistry: Chronic hyponatremia. Chronic hypoalbuminemia. Chronic elevated alkaline phosphatase. No E/o severe acidosis or alkalosis or renal failure or liver disease or diabetic ketoacidosis Lipase: No E/o pancreatitis PT/INR: No E/o significant coagulopathy Lactate: No E/o severe sepsis Urine: No E/o acute infection or hematuria Ascitic fluid: Less than 1000 total WBCs, less than 250 absolute neutrophil count. EKG EKG read by me: Rate/Rhythm: Regular rate and rhythm at a rate of 85 bpm Intervals: Normal [place]: Normal Impression: No evidence of acute ischemia or arrhythmia IMAGING Imaging and Radiology interpretation reviewed. CXR FINDINGS: Cardiac/vascular structures: Normal cardiomediastinal silhouette. Pulmonary: Lungs are clear. No pleural effusion. No evidence of pneumothorax. Osseous structures: Normal Soft tissues: Normal IMPRESSION: No acute cardiopulmonary disease. Electronically viewed and signed by Yennifer Goldberg Physician on 08/25/2018 18:53 TREATMENT/DISPOSITION The patient presents for a persistent leak through his recent hernia repair surgical site. I again attempted to seal the site using Dermabond. I also attempted Steri-Strips this time. I placed an abdominal pad over the site and covered it with Tegaderm to act as a slight pressure dressing to attempt to push the fluid toward the drain site. The patient's symptoms have mostly not changed since his previous evaluation. That said, I thought that perhaps his ascitic fluid looked a little more cloudy than it had previously. I did send it off for cell count and culture. The patient's white cell count and neutrophil count are low, and I have low suspicion for bacterial peritonitis at this time. The patient's vital signs were unremarkable. The patient is afebrile. The patient has a chronic leukocytosis without shift, and I suspect this is reactive. The patient has no lactic acidosis. The patient does not have evidence of a systemic infection. He is not septic. During the patient's last visit, a CT scan was completed that demonstrated the possibility of colitis. The patient had been given prescriptions for ciprofloxacin and Flagyl. Unfortunately, the patient has not yet been able to fill these prescriptions. I opted to provide the patient intravenous doses of these medicines in the hospital. I encouraged him to fill these prescriptions and take as prescribed. I do not feel that repeat CT imaging is warranted today as the patient's symptoms have not changed. The patient is scheduled to follow-up with his surgeon, Dr. Anderson, on Sunday. The patient understands the importance of following up in the clinic. The patient continues to have laboratory evidence and sequelae from his liver disease. He does not require emergent treatment for this. Upon reevaluation of the patient, symptoms have improved. No emergent diagnoses were identified. At this time, I feel that the patient stable for discharge. The patient was instructed to follow-up with a primary care physician in 1-3 days. The patient will be given strict precautions with which to return to the emergency department. Prescriptions: None The patient's blood pressure was elevated at greater than 120/80 while in the emergency department. The patient was otherwise stable with no evidence of hypertensive urgency or emergency. The patient does not require admission for blood pressure control. I have discussed with the patient the risks of hypertension. I have instructed the patient to return to the ER for any new or worsening symptoms including chest pain, shortness of breath, headache, blurred vision, confusion, nausea, vomiting or LOC. I have advised the patient to follow up with the primary care physician for outpatient monitoring and treatment for hypertension in 1-3 days. Disclaimer: Inadvertent spelling and grammatical errors are likely due to EHR/dictation software use and do not reflect on the overall quality of patient care. Note that the electronic time recorded on this note does not necessarily reflect the actual time of the patient encounter. Departure Diagnosis: Primary Impression: Postoperative complication Surgical complication system/body Area: digestive system Surgical complication type: other Qualified Codes: K91.89 - Other postprocedural complications and disorders of digestive system Additional Impressions: Ascites Ascites type: due to alcoholic cirrhosis Qualified Codes: K70.31 - Alcoholic cirrhosis of liver with ascites Leukocytosis Leukocytosis type: unspecified Qualified Codes: D72.829 - Elevated white blood cell count, unspecified Chronic anemia Thrombocytopenia Chronic hyponatremia Transaminitis Hypoalbuminemia Status post hernia repair Condition: Stable ASMITA MORGAN MD Aug 26, 2018 00:28
[2018-08-26] MEDS ORDERED: metroNIDAZOLE 500 MG/NS (PMX) 100 ML IVPB ONE (00:30)
[2018-08-26] MEDS ORDERED: LEVOFLOXACIN 500MG/D5W (PMX) 100 ML IVPB ONE (00:30)
[2018-08-26 02:59] VITALS: BP 105/71; PULSE 82; RESP 18
== END 2018-08-26 03:00 | disposition home or self-care (01) ==
LOC: E/R 16:38
DX: K91.89 Other postprocedural complications and disorders of digestive system (principal); K70.31 Alcoholic cirrhosis of liver with ascites; D72.829 Elevated white blood cell count, unspecified; D69.6 Thrombocytopenia, unspecified; E88.09 Other disorders of plasma-protein metabolism, not elsewhere classified; R74.0 Nonspecific elevation of levels of transaminase and lactic acid dehydrogenase [LDH]; D64.9 Anemia, unspecified; E87.1 Hypo-osmolality and hyponatremia; Z98.890 Other specified postprocedural states
CPT/HCPCS: 36415; 71045; 80053; 81003; 83605; 83690; 85025; 85610; 85730; 87040; 87070; 87075; 87102; 89051; 93005; 96365; 96375; J1956; J2270; Z7502; Z7610

== ENCOUNTER 2018-08-30 13:55 | Emergency (ER) | payer MEDICAID ==
[~2018-08-30] VITALS: Wt 79.0 kg
[~2018-08-30 13:55] MED LIST changes: -CIPR500T4 PO; -METR500T PO; -ONDA4TAB8 PO; -SPIR50TA PO; -TRAM50TA2 PO
--- NOTE | 2018-08-30 17:06 | ERD ---
ER Documentation Chief Complaint Chief Complaint HERNIA SUTURES OPENED HPI 52-year-old man complains of leaking from his periumbilical surgical site, he is status post incarcerated hernia repair. He was seen and evaluated for this a few days ago for similar symptoms and ascites fluid laboratory analysis was sent and it was negative for infection. Patient states he has follow-up with his surgeon in 2 days. He also has an ascites drain placed and there is still fluid in the drain and its flowing without any issues. Patient denies fevers, no chest pain or shortness of breath, no vomiting. ROS All systems reviewed and are negative except as per history of present illness. Medications Home Meds Reported Medications Pantoprazole* (Pantoprazole*) 40 Mg Tablet.dr, 40 MG PO AC BREAKFAST, TAB 07/23/18 Furosemide* (Furosemide*) 20 Mg Tablet, 20 MG PO DAILY, #60 TAB 07/15/18 Discontinued Reported Medications Spironolactone* (Aldactone*) 50 Mg Tablet, 50 MG PO DAILY, #30 TAB 07/15/18 Discontinued Scripts Ondansetron Hcl* (Zofran*) 4 Mg Tablet, 4 MG PO Q6H for NAUSEA AND/OR VOMITING, #30 TAB Prov:ASMITA MORGAN MD 08/22/18 Metronidazole* (Flagyl*) 500 Mg Tablet, 500 MG PO TID for 7 Days, TAB Prov:ASMITA MORGAN MD 08/22/18 Ciprofloxacin Hcl* (Ciprofloxacin Hcl*) 500 Mg Tablet, 500 MG PO BID for 7 Days, TAB Prov:ASMITA MORGAN MD 08/22/18 Tramadol HCl (Tramadol HCl) 50 Mg Tablet, 50 MG PO Q6H PRN for MODERATE PAIN LEVEL 4-6, #30 TAB Prov:RENE RUIZ 08/20/18 Allergies Allergies: Coded Allergies: No Known Allergy (Unverified , 08/30/18) PMhx/Soc Status post intraoperative repair of incarcerated ventral hernia and strangulation with ascites drain placed, history of alcoholic cirrhosis and recurrent ascites History of Surgery: Yes (Umbilical hernia repair) Anesthesia Reaction: No Hx Neurological Disorder: No Hx Respiratory Disorders: No Hx Cardiac Disorders: No Hx Psychiatric Problems: No Hx Miscellaneous Medical Probl: Yes (Cirrhosis with ascites, umbilical hernia) Hx Alcohol Use: Yes Hx Substance Use: No (UNKNOWN) Hx Tobacco Use: No FmHx Family History: No diabetes Physical Exam Vitals Vital Signs Date Temp Pulse Resp B/P (MAP) Pulse Ox O2 O2 Flow FiO2 Time Delivery Rate 08/30/18 98.1 75 18 123/74 99 14:04 (90) Physical Exam Const: No acute distress, afebrile Head: Atraumatic Cardio: Regular rate and rhythm, no murmurs Abd: Soft, non tender, non distended. Normal bowel sounds Skin: Surgical site appears clean, there is no wound dehiscence, no purulent discharge although ascites fluid is easily expressed through the surgical site. There is no surrounding skin induration or erythema, marilyn are in place and s kin is well approximated Back: No midline or flank tenderness Ext: No cyanosis, or edema Neur: Awake and alert x3, no focal deficits or facial asymmetry Psych: Normal Mood and Affect Result Diagram: 08/30/18 1722 08/30/18 1722 Results 24 hrs Laboratory Tests Test 08/30/18 17:22 White Blood Count 9.7 10^3/ul Red Blood Count 4.26 10^6/ul Hemoglobin 12.0 g/dl Hematocrit 34.8 % Mean Corpuscular Volume 81.7 fl Mean Corpuscular Hemoglobin 28.2 pg Mean Corpuscular Hemoglobin Concent 34.5 g/dl Red Cell Distribution Width 15.5 % Platelet Count 102 10^3/UL Mean Platelet Volume 9.3 fl Immature Granulocytes % 1.600 % Neutrophils % 72.8 % Lymphocytes % 8.2 % Monocytes % 11.1 % Eosinophils % 5.6 % Basophils % 0.7 % Nucleated Red Blood Cells % 0.0 /100WBC Immature Granulocytes # 0.160 10^3/ul Neutrophils # 7.1 10^3/ul Lymphocytes # 0.8 10^3/ul Monocytes # 1.1 10^3/ul Eosinophils # 0.5 10^3/ul Basophils # 0.1 10^3/ul Nucleated Red Blood Cells # 0.0 10^3/ul Sodium Level 124 mmol/L Potassium Level 4.5 mmol/L Chloride Level 97 mmol/L Carbon Dioxide Level 19 mmol/L Anion Gap 8 Blood Urea Nitrogen 19 mg/dl Creatinine 0.77 mg/dl Est Glomerular Filtrat Rate mL/min > 60 mL/min Glucose Level 125 mg/dl Calcium Level 7.8 mg/dl Total Bilirubin 0.4 mg/dl Direct Bilirubin 0.00 mg/dl Indirect Bilirubin 0.4 mg/dl Aspartate Amino Transf (AST/SGOT) 49 IU/L Alanine Aminotransferase (ALT/SGPT) 35 IU/L Alkaline Phosphatase 209 IU/L Total Protein 5.9 g/dl Albumin 2.7 g/dl Globulin 3.20 g/dl Albumin/Globulin Ratio 0.84 Lipase 221 U/L Procedures/MDM CBC and electrolytes were normal, liver function tests are normal. Abdominal surgical site was inspected by me it was cleansed and tincture of benzoin was applied, Steri-Strips were applied over the incision and dry absorbent gauze dressing was applied over the wound I administered ibuprofen 600 mg p.o. x1 and recommended patient follow-up with a surgeon as scheduled in 2 days. No indication for any further intervention imaging, or admission. Departure Diagnosis: Primary Impression: Ascites Ascites type: due to alcoholic cirrhosis Qualified Codes: K70.31 - Alcoholic cirrhosis of liver with ascites Additional Impression: Postoperative pain Condition: Good JULES ROMERO MD Aug 30, 2018 17:06
[2018-08-30 18:28] VITALS: BP 106/74; PULSE 76; RESP 18
[2018-08-30] MEDS ORDERED: IBUPROFEN 600 MG TAB PO ONE (18:30)
== END 2018-08-30 18:37 | disposition home or self-care (01) ==
LOC: E/R 13:55
DX: K70.31 Alcoholic cirrhosis of liver with ascites (principal); G89.18 Other acute postprocedural pain
CPT/HCPCS: 80053; 83690; 85025; Z7502; Z7610; 99283

== ENCOUNTER 2018-09-02 08:30 | Inpatient (IN) | payer MEDICAID ==
[~2018-09-02] VITALS: Ht 157.5 cm; Wt 68.9 kg
[2018-09-02] MEDS ORDERED: morphine 4 MG/ML VIAL IV STA (09:41)
[2018-09-02] MEDS ORDERED: ONDANSETRON 4 MG INJ IV STA (09:41)
[2018-09-02] MEDS ORDERED: ACETAMINOPHEN 325 MG TAB PO ONE (10:00)
[2018-09-02] MEDS ORDERED: CEFTRIAXONE 1 GM/50 ML (PMX) 50 ML IVPB ONE (10:00)
[2018-09-02] MEDS ORDERED: ACETAMINOPHEN 325 MG TAB PO PRN (11:30)
[2018-09-02] MEDS ORDERED: ONDANSETRON 4 MG INJ IV PRN ×2 (11:30→12:30)
[2018-09-02] MEDS ORDERED: NACL 0.9% 3 ML SYG IV SCH (12:30)
[2018-09-02] MEDS ORDERED: ACETAMINOPHEN 650 MG SUPP PR PRN (12:30)
[2018-09-02] MEDS ORDERED: SODIUM POLYSTYRENE 15 GM KIT (POWDER + SORBITOL) PO ONE (12:30)
[2018-09-02] MEDS ORDERED: NA POLYST SULFON 15 GM/60 ML BTL PO ONE (12:30)
--- NOTE | 2018-09-02 12:31 | HP ---
Date/Time of Note Date/Time of Note DATE: 09/02/18 TIME: 12:28 Assessment/Plan VTE Prophylaxis SCD applied (from Nsg): Yes Pharmacological prophylaxis: NA/contraindicated Pharm contraindication: anticoag not tolerated Lines/Catheters IV Catheter Type (from Nrsg): Saline Lock Assessment/Plan Hospital Course SUBJECTIVE: Seen and evaluated patient in ER room 5. Complaining of abdominal pain, leaking abdominal fluid. OBJECTIVE: Vital signs-see below PHYSICAL EXAM: Constitutional: Well-developed, adequately built, lying in bed comfortably. Psych: nl mood/affect, no complaints Head: atraumatic, normocephalic Eyes: nl conjunctiva, nl sclera ENMT: mucosa pink and moist, nl external ears & nose Neck: non-tender, supple Respiratory: clear to auscultation, normal air movement Cardiovascular: nl pulses, regular rate and rhythm Gastrointestinal: +leaking ascitic fluid, dressing soaked. drainage bag compressed-no output seen inside.. +tenderness.Bowel sounds active in all 4 quadrants. Musculoskeletal/extremities: nl extremities to inspection, motor strength equal bilaterally, no focal deficit. Normal pulses,no cyanosis, no edema. Neurological: Alert oriented 3,nl speech, nl strength Skin: nl turgor ASSESSMENT/PLAN:52-year-old male with EtOH cirrhosis, ascites, status post emergent repair for strangulated ventral hernia about [address] Anderson, delayed healing of abdominal wall wound secondary to persistent ascites required CT-guided abdominal fluid drainage bag placement, presented back with leaking ascites fluid, without seeing much drainage in the drainage bag, associ ated with fevers, abdominal pain. 1.Leaking midline abdominal wound 2/2 persistent ascites -Paracentesis has been ordered. We will call surgery consult to look at abdominal wound and drainage function. -CT abdomen and pelvis with contrast. -Empiric antimicrobial ceftriaxone 2 g to cover SBP. Will give additional 1 g as patient was given 1 g orally in the emergency room. -Cultures to follow 2. SIRS secondary to #1 -Treatment as above 3. Electrolyte derangement/hyponatremia/hyperkalemia -Hopefully, after paracentesis is likely his level for back to normal. We will repeat BMP, magnesium later today. -Nephrology to manage hyperkalemia and hyponatremia. 4. Decompensated alcoholic liver cirrhosis with recurrent large volume ascites. -Patient never had any follow-up with a liver specialist, or any discussion of TIPS in the past. -Patient had abdominal fluid drain placed by IR last time which seems like malfunction at this time and we will check function of the drainage with the rubin [facility]. -We will start patient on Lasix, lactulose prophylaxis. Not stable for Aldactone 2/2 hyperkalemia. 5. Status post emergent repair of strangulated ventral hernia 2 weeks ago. -Patient with leaking abdominal wall incision secondary to ascites, for which we will reconsult surgeon. 6. Anemia of alcoholic liver disease. -Stable H&H. We will continue to monitor. DVT prophylaxis: SCDs PUD prophylaxis: Protonix CODE STATUS: Full code Diet: N.p.o. Rest of the management depend on hospital course. Approximately 60 m spent on this history and physical. Patient was seen in collaboration with Dr. Vanegas. Result Diagram: 09/02/18 1000 09/02/18 1000 Results 24hrs Laboratory Tests Test 09/02/18 10:00 09/02/18 10:02 09/02/18 10:10 09/02/18 12:02 White Blood Count 9.6 Red Blood Count 4.33 L Hemoglobin 12.3 L Hematocrit 35.6 L Mean Corpuscular 82.2 Volume Mean Corpuscular 28.4 L Hemoglobin Mean Corpuscular 34.6 Hemoglobin Concent Red Cell 15.3 H Distribution Width Platelet Count 98 L Mean Platelet Volume 9.2 Immature 1.200 H Granulocytes % Neutrophils % 74.4 Lymphocytes % 4.9 L Monocytes % 16.4 H Eosinophils % 2.6 Basophils % 0.5 Nucleated Red Blood 0.0 Cells % Immature 0.120 H Granulocytes # Neutrophils # 7.1 Lymphocytes # 0.5 L Monocytes # 1.6 H Eosinophils # 0.3 Basophils # 0.1 Nucleated Red Blood 0.0 Cells # Prothrombin Time 13.0 Prothrombin Time 1.0 Ratio INR International 0.97 Normalized Ratio Activated 32.2 Partial Thromboplast Time Sodium Level 123 L Potassium Level 5.9 H Chloride Level 96 L Carbon Dioxide Level 19 L Anion Gap 8 Blood Urea Nitrogen 20 Creatinine 0.70 Est Glomerular > 60 Filtrat Rate mL/min Glucose Level 101 Calcium Level 8.1 L Total Bilirubin 0.7 Direct Bilirubin 0.00 Indirect Bilirubin 0.7 Aspartate Amino 76 H Transf (AST/SGOT) Alanine 53 Aminotransferase (AL T/SGPT) Alkaline Phosphatase 271 H Troponin I < 0.012 Total Protein 6.5 Albumin 2.8 L Globulin 3.70 H Albumin/Globulin 0.75 Ratio POC Venous Lactate 1.5 1.8 Urine Color ANTONIA Urine Clarity CLEAR Urine pH 6.0 Urine Specific 1.026 [place] Urine Ketones NEGATIVE Urine Nitrite NEGATIVE Urine Bilirubin NEGATIVE Urine Urobilinogen NEGATIVE Urine Leukocyte NEGATIVE Esterase Urine Hemoglobin NEGATIVE Urine Glucose NEGATIVE Urine Total Protein NEGATIVE HPI/ROS Admit Date/Time Admit Date/Time Hx of Present Illness She is a 52-year-old male with EtOH cirrhosis, ascites, status post emergent repair for strangulated ventral hernia about [address] Anderson, delayed healing of abdominal wall wound secondary to persistent ascites required CT-guided abdominal fluid drainage bag placement, presented back with leaking ascites fluid, without seeing much drainage in the drainage bag, associated with fevers, abdominal pain. She has been sober. He was never evaluated with a liver specialist.No hx TIPS or oupt f/u. In the emergency room, patient was noted with soft abdominal wound dressing with no output noted in the drainage bag. Patient also had a sodium level 123, potassium 5.9, AST 76, alkaline phosphatase 271, hemoglobin 12.3, hematocrit 35.6. Patient also had a temperature 100.3. Stable blood pressure. Patient denied any acute discomfort, chest pain, palpitation, shortness of breath, nausea, vomiting or other distress. Ultrasound-guided paracentesis was ordered from the emergency room, patient was given ceftriaxone 1 g. ROS A 12 point review of system was assessed and is negative other than what is mentioned in the HPI. PMH/Family/Social Past Medical History See HPI Medications Current Medications Ondansetron HCl (Zofran Inj) 4 mg BRIDGE ORDER PRN IV NAUSEA/VOMITING; Start 09/02/18 at 11:30; Stop 09/03/18 at 11:29 Acetaminophen (Tylenol Tab) 650 mg ER BRIDGE PRN PO .MILD PAIN 1-3 OR TEMP; Start 09/02/18 at 11:30; Stop 09/03/18 at 11:29 Ceftriaxone Sodium 50 ml @ 100 mls/hr Q24H IVPB ; Start 09/02/18 at 12:30; Status UNV Sodium Polystyrene Sulfonate (Kayexelate 15 Gm Kit (Powder+Sorbitol)) 30 gm ONCE ONCE PO ; Start 09/02/18 at 12:30; Stop 09/02/18 at 12:31 IV Flush (NS 3 ml) 3 ml PER PROTOCOL IV ; Start 09/02/18 at 12:30; Status UNV Coded Allergies: No Known Allergy (Unverified , 08/30/18) Past Surgical History See HPI Past Surgical Hx: other Family History Significant Family History: no pertinent family hx Social History Former alcohol abuse. Smoking Status: Never smoker Exam/Review of Systems Vital Signs Vitals Vital Signs Date Temp Pulse Resp B/P (MAP) Pulse Ox O2 O2 Flow FiO2 Time Delivery Rate 09/02/18 98.2 76 18 95/62 (73) 100 Room Air 12:00 09/02/18 10:09 CALE MONTERROSO NP Sep 02, 2018 12:31
[2018-09-02] MEDS ORDERED: IOHEXOL 300MG/ML 150 ML BTL ONE (12:37)
[2018-09-02] MEDS ORDERED: LACTULOSE 30ML CUP PO PRN (13:00)
[2018-09-02] MEDS ORDERED: ALBUMIN HUMAN 25% 100 ML IV SCH (13:30)
--- NOTE | 2018-09-02 14:06 | CONS ---
DATE OF ADMISSION: 09/02/2018 DATE OF CONSULTATION: 09/02/2018 TYPE OF CONSULTATION: Nephrology. REASON FOR CONSULTATION: Hyperkalemia and hyponatremia. PROVIDER REQUESTING CONSULT: Laura Alaniz NP HISTORY OF PRESENT ILLNESS: This is a 52-year-old male with a past medical history of EtOH cirrhosis , a history of anemia, a history of chronic hyponatremia with previous baseline sodium levels of 124 to 125 mEq per liter, recent history of abdominal hernia repair, who presents to [facility] for a persistent leak of his hernia repair site. The patient recently underwent emergent he rnia ventral repair due to strangulated hernia approximately 2 weeks ago. The patient had delayed he aling of abdominal wall secondary to ascites. A CT-guided abdominal fluid drainage was placed. The patient, however, was noted to have continued output and as a result, he came into the emergency room . Upon arrival, the patient's sodium was 123, potassium 5.9 and hemoglobin 12.3. The patient also w as febrile with a temperature of 100.3. In the emergency room, the patient was started on IV antibio tics and admitted to med/surg telemetry for further evaluation. In terms of patient's renal history, the patient had normal renal function. The patient, however, delatorre d persistent hyponatremia ranging from 124 to 130 mEq per liter over the course of the last 12 months . The patient has been normokalemic during this time. There have been no reports of any hemoptysis, hematemesis or hematochezia. PAST MEDICAL HISTORY: As stated above, history of EtOH cirrhosis, history of ascites, history of her dejah repair, history of hyponatremia. PAST SURGICAL HISTORY: Status post umbilical hernia repair, status post paracentesis. FAMILY HISTORY: No family history of kidney disease. SOCIAL HISTORY: History of alcohol use. ALLERGIES: NO KNOWN DRUG ALLERGIES. MEDICATIONS: Have been reviewed. REVIEW OF SYSTEMS: A 14-point review of systems conducted. Pertinent positives stated in HPI, other medrano negative. PHYSICAL EXAMINATION: VITAL SIGNS: Blood pressure is 95/62, respiration 18, pulse 76, temperature 98.2. HEENT: Head is normocephalic. NECK: Supple. HEART: Regular rate. LUNGS: Show diminished breath sounds at the base. ABDOMEN: Soft. Noted marilyn at the hernia site with expression of serosanguineous fluid, noted pig tail drain. EXTREMITIES: Negative for clubbing, cyanosis. Trace edema. DERMATOLOGIC: No rashes. MUSCULOSKELETAL: No joint effusion. NEUROLOGIC: No focal deficits. LABORATORY DATA: Shows a white count 9.6, hemoglobin 12.3, platelet 98. Sodium 123, potassium 5.9, BUN 20, creatinine 0.70. The patient's initial urinalysis is bland. ASSESSMENT AND PLAN: This is a 52-year-old male who presents with: 1. Hyponatremia. Etiology is secondary to EtOH cirrhosis likely causing markedly elevated antidiure tic hormone levels. Possible component of volume depletion is a consideration. Plan at this point i s to do a full evaluation. We will check a urine sodium level and urine osmolality level. We will p lace the patient on gentle fluid challenge with IV albumin. We will place the patient on free water restriction and monitor serial sodium levels. 2. Hyperkalemia. Etiology is possibly due to volume depletion, questionable medications. It is unc lear if the patient is on Aldactone. The patient is status post Kayexalate. Plan is to continue IV hydration. We will continue to monitor potassium levels closely. The patient will be placed on a lo w potassium diet. 3. Acidosis. Etiology may be compensatory. Continue to monitor. 4. Anemia. Monitor hemoglobin and hematocrit levels. 5. Systemic inflammatory response syndrome, possible spontaneous bacterial peritonitis.. Continue c urrent antibiotic regimen. Follow up ascites culture. 6. Decompensated EtOH cirrhosis. The patient is currently decompensated with large volume ascites. Continue current medical management. We will hold Lasix and Aldactone in the setting of hyperkalemi a and hyponatremia. Monitor closely. 7. Ventral hernia status post surgical repair. Continue to monitor. Thank you, Laura, for this interesting consult. It will be a pleasure to follow patient with you thr oughout the hospital course. Dictated By: SITA PEPPER DO NR/NTS Conf#: [id number] DID#: [id number] CC: MAGGIE LALA MD; HOME CEBALLOS MD;*EndCC*
[2018-09-02] MEDS: ALBUMIN HUMAN 25% 50 ML INJ IV SCH ×2 (14:07→22:02)
--- NOTE | 2018-09-02 14:54 | ERD ---
ER Documentation Chief Complaint Chief Complaint Complains of abdominal pin Hx of Ascites HPI Patient is a 52-year-old male with ascites who presents with leaking from his surgical site. The patient has abdominal pain and distention. He has significant leakage from his incision site. His temperature was 100 in the emergency department. Upon review of old medical records the patient has multiple visits to the ER. He has had no treatment as of yet. ROS All systems reviewed and are negative except as per history of present illness. Medications Home Meds Reported Medications Pantoprazole* (Pantoprazole*) 40 Mg Tablet.dr, 40 MG PO AC BREAKFAST, TAB 07/23/18 Furosemide* (Furosemide*) 20 Mg Tablet, 20 MG PO DAILY, #60 TAB 07/15/18 Allergies Allergies: Coded Allergies: No Known Allergy (Unverified , 08/30/18) PMhx/Soc History of Surgery: Yes (Umbilical hernia repair , LIVER DRAIN ) Anesthesia Reaction: No Hx Neurological Disorder: No Hx Respiratory Disorders: No Hx Cardiac Disorders: No Hx Psychiatric Problems: No Hx Miscellaneous Medical Probl: Yes (Cirrhosis with ascites, umbilical hernia) Hx Alcohol Use: Yes Hx Substance Use: No (UNKNOWN) Hx Tobacco Use: No Smoking Status: Never smoker FmHx Family History: No diabetes Physical Exam Vitals Vital Signs Date Temp Pulse Resp B/P (MAP) Pulse Ox O2 O2 Flow FiO2 Time Delivery Rate 09/02/18 88 18 95/93 (94) 100 Room Air 13:28 09/02/18 98.2 76 18 95/62 (73) 100 Room Air 12:00 09/02/18 83 20 97/61 (73) 100 Room Air 10:25 09/02/18 100.3 10:13 09/02/18 10:09 09/02/18 100.0 98 20 117/67 98 08:36 (84) Physical Exam Const: No acute distress Head: Atraumatic Eyes: Normal Conjunctiva ENT: Normal External Ears, Nose and Mouth. Neck: Full range of motion. No meningismus. Resp: Clear to auscultation bilaterally Cardio: Regular rate and rhythm, no murmurs Abd: Abdominal pain diffusely with cloudy ascitic appearing fluid from the incision site Skin: No petechiae or rashes Back: No midline or flank tenderness Ext: No cyanosis, or edema Neur: Awake and alert Psych: Normal Mood and Affect Result Diagram: 09/02/18 1000 09/02/18 1000 Results 24 hrs Laboratory Tests Test 09/02/18 10:00 09/02/18 10:02 09/02/18 10:10 09/02/18 12:02 White Blood Count 9.6 10^3/ul Red Blood Count 4.33 10^6/ul Hemoglobin 12.3 g/dl Hematocrit 35.6 % Mean Corpuscular 82.2 fl Volume Mean Corpuscular 28.4 pg Hemoglobin Mean Corpuscular 34.6 g/dl Hemoglobin Concen t Red Cell 15.3 % Distribution Width Platelet Count 98 10^3/UL Mean Platelet 9.2 fl Volume Immature 1.200 % Granulocytes % Neutrophils % 74.4 % Lymphocytes % 4.9 % Monocytes % 16.4 % Eosinophils % 2.6 % Basophils % 0.5 % Nucleated Red 0.0 /100WBC Blood Cells % Immature 0.120 10^3/ul Granulocytes # Neutrophils # 7.1 10^3/ul Lymphocytes # 0.5 10^3/ul Monocytes # 1.6 10^3/ul Eosinophils # 0.3 10^3/ul Basophils # 0.1 10^3/ul Nucleated Red 0.0 10^3/ul Blood Cells # Prothrombin Time 13.0 Sec Prothrombin Time 1.0 Ratio INR International 0.97 Normalized Ratio Activated 32.2 Sec Partial Thrombopl ast Time Sodium Level 123 mmol/L Potassium Level 5.9 mmol/L Chloride Level 96 mmol/L Carbon Dioxide 19 mmol/L Level Anion Gap 8 Blood Urea 20 mg/dl Nitrogen Creatinine 0.70 mg/dl Est Glomerular > 60 mL/min Filtrat Rate mL/min Glucose Level 101 mg/dl Calcium Level 8.1 mg/dl Total Bilirubin 0.7 mg/dl Direct Bilirubin 0.00 mg/dl Indirect 0.7 mg/dl Bilirubin Aspartate Amino 76 IU/L Transf (AST/SGOT) Alanine 53 IU/L Aminotransferase (ALT/SGPT) Alkaline 271 IU/L Phosphatase Troponin I < 0.012 ng/ml Total Protein 6.5 g/dl Albumin 2.8 g/dl Globulin 3.70 g/dl Albumin/Globulin 0.75 Ratio POC Venous 1.5 mmol/L 1.8 mmol/L Lactate Urine Color ANTONIA Urine Clarity CLEAR Urine pH 6.0 Urine Specific 1.026 [place] Urine Ketones NEGATIVE mg/dL Urine Nitrite NEGATIVE mg/dL Urine Bilirubin NEGATIVE mg/dL Urine NEGATIVE mg/dL Urobilinogen Urine Leukocyte NEGATIVE [place]/ul Esterase Urine Hemoglobin NEGATIVE mg/dL Urine Glucose NEGATIVE mg/dL Urine Total NEGATIVE mg/dl Protein Test 09/02/18 13:37 Lactic Acid Level 0.9 mmol/L Current Medications Medications Dose Sig/Sara Start Time Status Last (Trade) Ordered Route PRN Stop Time Admin Dose Reason Admin Ceftriaxone 50 ml @ ONCE ONCE 09/02/18 DC 09/02/18 Sodium 100 mls/hr IVPB 10:00 10:14 09/02/18 10:29 650 mg ONCE ONCE 09/02/18 DC 09/02/18 Acetaminophen PO 10:00 10:13 (Tylenol 09/02/18 10:08 Tab) Morphine 4 mg ONCE STAT 09/02/18 DC 09/02/18 Sulfate IV 09:41 10:14 (morphine) 09/02/18 10:08 Ondansetron 4 mg ONCE STAT 09/02/18 DC 09/02/18 HCl (Zofran IV 09:41 10:13 Inj) 09/02/18 10:08 Ondansetron 4 mg BRIDGE ORDER 09/02/18 DC HCl (Zofran PRN IV 11:30 Inj) NAUSEA/VOMITI 09/02/18 13:38 NG 650 mg ER BRIDGE 09/02/18 Cancel Acetaminophen PRN PO 11:30 (Tylenol .MILD PAIN 09/03/18 11:29 Tab) 1-3 OR TEMP Ceftriaxone 50 ml @ Q24H IVPB 09/03/18 Sodium 100 mls/hr 12:30 Sodium 30 gm ONCE ONCE 09/02/18 DC Polystyrene PO 12:30 Sulfonate 09/02/18 12:30 (Kayexalate) Sodium 30 gm ONCE ONCE 09/02/18 DC 09/02/18 Polystyrene PO 12:30 13:19 Sulfonate 09/02/18 12:31 (Kayexelate 15 Gm Kit (Powder+Sorbi maame)) IV Flush 3 ml PER 09/02/18 (NS 3 ml) PROTOCOL IV 12:30 Ondansetron 4 mg Q6H PRN 09/02/18 HCl (Zofran IV 12:30 Inj) NAUSEA/VOMITI NG 650 mg Q6H PRN 09/02/18 Acetaminophen PO .PAIN 1-3 12:30 (Tylenol OR TEMP Tab) 650 mg Q6H PRN 09/02/18 Acetaminophen [place] .PAIN 1-3 12:30 (Tylenol OR TEMP Supp) Morphine 2 mg Q4H PRN 09/02/18 Sulfate IV .SEVERE 12:30 (morphine) PAIN 7-10 40 mg DAILY@06 09/03/18 Pantoprazole IV 06:00 (Protonix Iv) Iohexol 150 ml STK-MED 09/02/18 DC (Omnipaque ONCE .ROUTE 12:37 300mg/ ml) 09/02/18 12:38 Furosemide 40 mg DAILY PO 09/03/18 DC (Lasix) 09:00 09/03/18 09:00 Lactulose 20 gm DAILY PRN 09/02/18 (Enulose) PO 13:00 CONSTIPATION Albumin 100 ml @ Q8H IV 09/02/18 Cancel Human 100 mls/hr 13:30 09/03/18 06:29 Albumin 100 ml Q8H IV 09/02/18 09/02/18 Human 14:00 14:07 (Albumin 09/03/18 06:01 Human 25%) Procedures/MDM Patient is a 52-year-old male who presents with leakage from his incision site. The leakage appears cloudy and he does have a fever in the emergency department. I am concerned for possible spontaneous bacterial peritonitis versus post surg ical infection or abscess. The patient was given broad-spectrum antibiotics with ceftriaxone and vancomycin. The patient was going to be admitted to the panel team. Dr. Anderson was consulted by the panel team and he feels the patient would benefit for transfer for higher level of care for TIPS placement. We are unable to do TIPS procedure here at [facility]. We have called the [facility] system at this time in an attempt to make a transfer happen. I am awaiting the her back at this time. Patient will be signed out to the oncoming physician. CT abdomen pelvis read by radiology. Ultrasound-guided paracentesis performed by radiology. Departure Diagnosis: Primary Impression: SBP (spontaneous bacterial peritonitis) Additional Impressions: Ascites Ascites type: other type Qualified Codes: R18.8 - Other ascites Abdominal pain Abdominal location: generalized Qualified Codes: R10.84 - Generalized ab dominal pain Condition: HOME Henderson MD Sep 02, 2018 14:54
[2018-09-02] MEDS ORDERED: VANCOMYCIN 1 GM (PMX) 250 ML IVPB ONE (15:00)
--- NOTE | 2018-09-02 15:59 | EN ---
Date/Time of Note Date/Time of Note DATE: 09/02/18 TIME: 15:56 ER Progress Note Time: 15:00. Endorsed to me by Dr. Cohen pending response from [facility] regarding transfer. At 15:14 patient was refused transfer as his current issues are likely related to recent surgery. Dr Anderson informed. Patient will be admitted by Dr. Vanegas. Chemistry significant for hyponatremia and hyperkalemia but normal BUN/creatinine. Repeat BMP shows hyponatremia which is chronic and consistent with prior result but no hyperkalemia or renal insufficiency. BP improved with Albumin. Stable for downgrade to MedSurg. NURIA RUIZ MD Sep 02, 2018 15:59
[2018-09-02] MEDS: ACETAMINOPHEN 325 MG TAB PO PRN ×2 (16:59→22:45)
[2018-09-02] MEDS ORDERED: ALBUMIN HUMAN 25% 50 ML IV ONE (18:00)
[2018-09-02 19:45] VITALS: Ht 157.5 cm; Wt 68.9 kg
[2018-09-02 21:03] VITALS: BP 99/54; PULSE 63; RESP 18
[2018-09-03 03:32] VITALS: BP 103/58; RESP 18
[2018-09-03] MEDS: PANTOPRAZOLE 40 MG INJ IV SCH (06:07)
[2018-09-03] MEDS: ALBUMIN HUMAN 25% 50 ML INJ IV SCH (06:08)
--- NOTE | 2018-09-03 06:24 | CONS ---
DATE OF ADMISSION: 09/02/2018 DATE OF CONSULTATION: 09/02/2018 HISTORY OF PRESENT ILLNESS: Mr. Day is a 52-year-old male, status post repair of an umbilical h ernia causing a small bowel obstruction on 08/15/2018. The patient was readmitted soon after surgery due to ascites draining from his wound. The patient had a drain placed. He states that since he delatorre s been home, he has had persistent drainage. The patient ____ who gets frequent paracentesis at the hospital by the ER doctor ____. The patient stated he really has not got an improvement in his drain age since going home. It seems to be better with the drain placement but he states that is not true. He states that he still has drainage. PAST MEDICAL HISTORY: EtOH cirrhosis, ascites, hyponatremia. PAST SURGICAL HISTORY: Status post umbilical hernia and reduction of small bowel obstruction. FAMILY HISTORY: No family history of ____. SOCIAL HISTORY: History of alcohol use. ALLERGIES: NO KNOWN DRUG ALLERGIES. MEDICATIONS: 1. Zofran. 2. Tylenol. 3. Kayexalate. PHYSICAL EXAMINATION: GENERAL: He is a well-nourished, well-developed male. VITAL SIGNS: He is afebrile. Vital signs stable. HEENT: Normocephalic, atraumatic. NECK: Supple. CHEST: Clear to auscultation bilaterally. HEART: Regular rhythm. ABDOMEN: Soft, nontender, nondistended with a well-healed midline wound. With pressure to the midli ne wound, there is ascitic fluid coming out between the marilyn. This is non-purulent. LABORATORY DATA: Reveal white count of 10, hematocrit of 35 and platelets of 98. Sodium 124, potass ium 4.6, chloride 97, CO2 of 18, BUN 19, creatinine 0.64. A CT of the abdomen and pelvis revealed de monstrated postsurgical changes related to prior abdominal hernia. There were 2 abdominal wall fluid collections, slight interval decrease in size of ____ fluid collection. The staple line is grossly stable ____, possible seroma versus abscess. An ultrasound revealed trace amount of ascites. ASSESSMENT AND PLAN: Mr. Day presents with a subcutaneous loculated fluid collection, likely ascites versus seroma. The patient really has minimal ascites so I do not feel the patient needs paracentesis. Recommend CT -guided placement of subcutaneous drain. I do not wish to open the incision and impact it as the pat ient will have an open communication to the abdomen. Further recommendations to follow CT-guided dra johnson. Dictated By: MARY ARRIAZA/LILY Conf#: [id number] DID#: [id number]
[2018-09-03 08:00] VITALS: BP 104/61; PULSE 76; RESP 20
[2018-09-03] MEDS ORDERED: FUROSEMIDE 40 MG TAB PO SCH (09:00)
--- NOTE | 2018-09-03 09:19 | PN ---
DATE: 09/03/2018 SUBJECTIVE: The patient is stable, no events overnight. No fevers, chills, nausea, vomiting. OBJECTIVE: VITAL SIGNS: Blood pressure is 104/61, respiratory rate 20, pulse 76, temperature 98.4. HEENT: Head is normocephalic. NECK: Supple. HEART: Regular rate. LUNGS: Show diminished breath sounds at the base. ABDOMEN: Soft. Noted sutures with serosanguineous fluid. Drain is noted. EXTREMITIES: Negative for clubbing, cyanosis. Trace edema. DERMATOLOGIC: No rashes. MUSCULOSKELETAL: No joint effusion. NEUROLOGIC: No change in exam. LABORATORY DATA: Shows sodium 127, BUN 22, creatinine 0.65. White count is 3.6, hemoglobin 9.9, silvano telet count is 55, phosphorus 5.6. Shows urine sodium less than 13, urine osmolarity 883. ASSESSMENT AND PLAN: 1. Hyponatremia, etiology is likely secondary to ETOH cirrhosis. The patient's urine studies were r eviewed, shows a phenol less than 1% which can be seen in cirrhosis and volume depletion. The patien t did receive albumin challenge with improvement in sodium levels. At this point, will continue to m onitor closely. Will continue free water restriction. 2. Hyperkalemia. Etiology may be secondary to volume depletion, possible medications. The patient' s potassium levels have improved. Continue to monitor. 3. Acidosis, likely compensatory. Continue to monitor. 4. Anemia. Continue to monitor hemoglobin and hematocrit levels. 5. Systemic inflammatory response syndrome. Question SBP. Continue antibiotic therapy. 6. Decompensated liver cirrhosis. The patient has a noted drain in place. Continue to monitor. Co ntinue medical management. Would hold diuretic therapy at this time. 7. Ventral hernia with questionable seroma. The patient was seen by general surgery. Continue to m onitor. Follow up recommendations. Dictated By: SITA PEPPER DO NR/NTS Conf#: [id number] DID#: [id number] CC: RENE RUIZ MD;*EndCC*
[2018-09-03] MEDS ORDERED: LIDOCAINE 1% (MDV) 20 ML INJ ONE (12:22)
[2018-09-03 14:00] VITALS: BP_SYST 110; BP_DIAS 58; BP_DIAS 69; PULSE 75; PULSE 85; RESP 18; RESP 20
[2018-09-03] MEDS: CEFTRIAXONE 2 GM/50 ML (PMX) 50 ML IVPB SCH (14:03)
--- NOTE | 2018-09-03 14:23 | PN ---
Date/Time of Note Date/Time of Note DATE: 09/03/18 TIME: 14:15 Assessment/Plan VTE Prophylaxis Risk score (from Ns)>0 risk: 1 SCD applied (from Ns): Yes Pharmacological prophylaxis: NA/contraindicated Pharm contraindication: low risk/ambulating, anticoag not tolerated Lines/Catheters IV [facility]ter [facility]from [facility] Saline Lock Urinary Cath still in place: No Assessment/Plan Hospital Course SUBJECTIVE: Seen and evaluated patient in ER room 5. Complaining of abdominal pain, leaking abdominal fluid. OBJECTIVE: Vital signs-see below PHYSICAL EXAM: Constitutional: Well-developed, adequately built, lying in bed comfortably. Psych: nl mood/affect, no complaints Head: atraumatic, normocephalic Eyes: nl conjunctiva, nl sclera ENMT: mucosa pink and moist, nl external ears & nose Neck: non-tender, supple Respiratory: clear to auscultation, normal air movement Cardiovascular: nl pulses, regular rate and rhythm Gastrointestinal: +leaking ascitic fluid, dressing soaked. drainage bag compressed-no output seen inside.. +tenderness.Bowel sounds active in all 4 quadrants. Musculoskeletal/extremities: nl extremities to inspection, motor strength equal bilaterally, no focal deficit. Normal pulses,no cyanosis, no edema. Neurological: Alert oriented 3,nl speech, nl strength Skin: nl turgor ASSESSMENT/PLAN:52-year-old male with EtOH cirrhosis, ascites, status post emergent repair for strangulated ventral hernia about [address] Anderson, delayed healing of abdominal wall wound secondary to persistent ascites required CT-guided abdominal fluid drainage bag placement, presented back with leaking ascites fluid, without seeing much drainage in the drainage bag, associated with fevers, abdominal pain. 1. Leaking surgical abdominal wound secondary to loculated fluid collection -Not much ascites. Status post CT-guided drain placed to left side=> leaking resolved. Site culture growing GNR -Continue empiric antimicrobial and follow-up cultures. -Follow-up surgical recommendations 2. SIRS secondary to #1 -Stable. Treatment as above 3. Electrolyte derangement/hyponatremia/hyperkalemia -Improved. -Continue free water restriction. -f/u nephrology recommendations. 4. Decompensated alcoholic liver cirrhosis with recurrent ascites. -Not a candidate for Lasix or Aldactone secondary to left leg derangement. -Continue lactulose prophylaxis. Continue ceftriaxone empirically for SBP prophylaxis. 5. Status post emergent repair of strangulated ventral hernia 2 weeks ago. -Follow-up surgical recommendations. 6. Anemia of alcoholic liver disease. -Stable H&H. We will continue to monitor. DVT prophylaxis: SCDs PUD prophylaxis: Protonix CODE STATUS: Full code Diet: Regular diet, free water restriction. Disposition: Overall, patient with improved drainage site status. He is cleared from a surgical standpoint for outpatient follow-up. However, patient is growing gram-negative and wound culture which we will follow-up and DC planning w/ appropriate antibiotic recommendation from ID colleague.. Patient was seen in collaboration with Dr. Vanegas. Result Diagram: 09/03/1852709/03/18527 Results 24hrs Laboratory Tests Test 09/02/18 16:11 09/02/18 18:29 09/03/18 05:28 Sodium Level 124 L 125 L 127 L Potassium Level 4.6 4.6 3.7 Chloride Level 97 99 98 Carbon Dioxide Level 18 L 17 L 19 L Anion Gap 9 9 10 Blood Urea Nitrogen 19 18 22 H Creatinine 0.64 0.67 0.65 Est Glomerular Filtrat Rate mL/min > 60 > 60 > 60 Glucose Level 93 90 81 Calcium Level 8.1 L 7.9 L 7.9 L Magnesium Level 2.0 1.9 White Blood Count 3.6 #L Red Blood Count 3.41 #L Hemoglobin 9.9 L Hematocrit 27.9 #L Mean Corpuscular Volume 81.8 L Mean Corpuscular Hemoglobin 29.0 Mean Corpuscular Hemoglobin Concent 35.5 Red Cell Distribution Width 15.5 H Platelet Count 55 #L Mean Platelet Volume 9.1 Immature Granulocytes % 0.800 H Neutrophils % 65.2 Lymphocytes % 9.1 L Monocytes % 19.4 H Eosinophils % 4.7 Basophils % 0.8 Nucleated Red Blood Cells % 0.0 Immature Granulocytes # 0.030 Neutrophils # 2.4 Lymphocytes # 0.3 L Monocytes # 0.7 Eosinophils # 0.2 Basophils # 0.0 Nucleated Red Blood Cells # 0.0 Hemoglobin A1c 5.4 Phosphorus Level 5.6 H Total Bilirubin 0.4 Direct Bilirubin 0.00 Indirect Bilirubin 0.4 Aspartate Amino Transf (AST/SGOT) 57 H Alanine Aminotransferase (ALT/SGPT) 48 Alkaline Phosphatase 147 H Total Protein 5.4 #L Albumin 2.7 L Globulin 2.70 Albumin/Globulin Ratio 1.00 Triglycerides Level 60 Cholesterol Level 72 L LDL Cholesterol, Calculated 20 HDL Cholesterol 40 Cholesterol/HDL Ratio 1.8 Exam/Review of Systems Exam Vitals Vital Signs Date Temp Pulse Resp B/P (MAP) Pulse Ox O2 O2 Flow FiO2 Time Delivery Rate 09/03/18 98.5 76 20 104/61 96 08:00 (75) 09/02/18 Room Air 21:03 09/02/18 10:09 Intake and Output 09/02/18 09/02/18 09/03/18 1515:00 23:00 07:00 IntakeIntake Total 50 ml 240 ml 350 ml OutputOutput Total 200 ml 1000 ml BalanceBalance 50 ml 40 ml -650 ml Results Results 24hrs Laboratory Tests Test 09/02/18 16:11 09/02/18 18:29 09/03/18 05:28 Sodium Level 124 L 125 L 127 L Potassium Level 4.6 4.6 3.7 Chloride Level 97 99 98 Carbon Dioxide Level 18 L 17 L 19 L Anion Gap 9 9 10 Blood Urea Nitrogen 19 18 22 H Creatinine 0.64 0.67 0.65 Est Glomerular Filtrat Rate mL/min > 60 > 60 > 60 Glucose Level 93 90 81 Calcium Level 8.1 L 7.9 L 7.9 L Magnesium Level 2.0 1.9 White Blood Count 3.6 #L Red Blood Count 3.41 #L Hemoglobin 9.9 L Hematocrit 27.9 #L Mean Corpuscular Volume 81.8 L Mean Corpuscular Hemoglobin 29.0 Mean Corpuscular Hemoglobin Concent 35.5 Red Cell Distribution Width 15.5 H Platelet Count 55 #L Mean Platelet Volume 9.1 Immature Granulocytes % 0.800 H Neutrophils % 65.2 Lymphocytes % 9.1 L Monocytes % 19.4 H Eosinophils % 4.7 Basophils % 0.8 Nucleated Red Blood Cells % 0.0 Immature Granulocytes # 0.030 Neutrophils # 2.4 Lymphocytes # 0.3 L Monocytes # 0.7 Eosinophils # 0.2 Basophils # 0.0 Nucleated Red Blood Cells # 0.0 Hemoglobin A1c 5.4 Phosphorus Level 5.6 H Total Bilirubin 0.4 Direct Bilirubin 0.00 Indirect Bilirubin 0.4 Aspartate Amino Transf (AST/SGOT) 57 H Alanine Aminotransferase (ALT/SGPT) 48 Alkaline Phosphatase 147 H Total Protein 5.4 #L Albumin 2.7 L Globulin 2.70 Albumin/Globulin Ratio 1.00 Triglycerides Level 60 Cholesterol Level 72 L LDL Cholesterol, Calculated 20 HDL Cholesterol 40 Cholesterol/HDL Ratio 1.8 Medications Medication Current Medications Ceftriaxone Sodium 50 ml @ 100 mls/hr Q24H IVPB Last administered on 09/03/18at 14:03; Admin Dose 100 MLS/HR; Start 09/03/18 at 12:30 IV Flush (NS 3 ml) 3 ml PER PROTOCOL IV ; Start 09/02/18 at 12:30 Ondansetron HCl (Zofran Inj) 4 mg Q6H PRN IV NAUSEA/VOMITING; Start 09/02/18 at 12:30 Acetaminophen (Tylenol Tab) 650 mg Q6H PRN PO .PAIN 1-3 OR TEMP Last administered on 09/02/18at 22:45; Admin Dose 650 MG; Start 09/02/18 at 12:30 Acetaminophen (Tylenol Supp) 650 mg Q6H PRN [place] .PAIN 1-3 OR TEMP; Start 09/02/18 at 12:30 Morphine Sulfate (morphine) 2 mg Q4H PRN IV .SEVERE PAIN 7-10; Start 09/02/18 at 12:30 Pantoprazole (Protonix Iv) 40 mg DAILY@06 IV Last administered on 09/03/18at 06:07; Admin Dose 40 MG; Start 09/03/18 at 06:00 Lactulose (Enulose) 20 gm DAILY PRN PO CONSTIPATION; Start 09/02/18 at 13:00 CALE MONTERROSO NP Sep 03, 2018 14:23
[2018-09-03 15:00] VITALS: BP 97/55; PULSE 88; RESP 18
[2018-09-03 15:30] VITALS: BP 108/60; PULSE 91; RESP 18
--- NOTE | 2018-09-03 16:14 | HPN ---
Date/Time of Note Date/Time of Note DATE: 09/03/18 TIME: 16:13 Interval H&P Admission Note Pt. seen H&P reviewed: No system changes USMAN CHRISTOPHER MD Sep 03, 2018 16:14
--- NOTE | 2018-09-03 19:01 | CONS ---
Assessment/Plan Assessment/Plan Hospital Course (Demo Recall) No acute events overnight patient is alert looks comfortable denies pain, he is afebrile WBC 3.6 platelets 55 neutrophils 65.2 BUN 22 creatinine 0.65 Microbiology: Abdominal drainage culture growing gram-negative rods, blood cultures negative Antimicrobials: Rocephin Physical examination: Well-developed well-nourished middle-aged man who is alert in no distress. Head atraumatic normocephalic. Neck is supple. Chest rise symmetrical. Breath sounds diminished at bases. Heart: S1-S2. Abdomen soft, bowel tones present patient has bilateral accordion drains on each side of the abdomen left one was placed today the right drainage catheter has a large amount of serous fluid Assessment: 1. Abdominal wall fluid collection, status post IR guided drainage with catheter placement, cultures preliminary growing gram-negative rods 2. Status post strangulated hernia repair 2 weeks ago 3. Anemia 4. Alcoholism with decompensated alcoholic cirrhosis Plan: Patient is clinically stable and afebrile we will continue him on current antibiotics and await for drainage cultures, follow surgical recommendations Consultation Date/Type/Reason Admit Date/Time Sep 02, 2018 at 11:17 Initial Consult Date Type of Consult id Date/Time of Note DATE: 09/03/18 TIME: 19:00 Exam/Review of Systems Exam Vitals Vital Signs Date Temp Pulse Resp B/P (MAP) Pulse Ox O2 O2 Flow FiO2 Time Delivery Rate 09/03/18 98.6 91 18 108/60 96 15:30 (76) 09/03/18 Room Air 15:00 09/02/18 10:09 Intake and Output 09/02/18 09/02/18 09/03/18 1515:00 23:00 07:00 IntakeIntake Total 50 ml 240 ml 350 ml OutputOutput Total 200 ml 1000 ml BalanceBalance 50 ml 40 ml -650 ml Results Result Diagram: 09/03/1828 09/03/18527 Results 24hrs Laboratory Tests Test 09/03/18 05:28 09/03/18 12:30 White Blood Count 3.6 #L Red Blood Count 3.41 #L Hemoglobin 9.9 L Hematocrit 27.9 #L Mean Corpuscular Volume 81.8 L Mean Corpuscular Hemoglobin 29.0 Mean Corpuscular Hemoglobin Concent 35.5 Red Cell Distribution Width 15.5 H Platelet Count 55 #L Mean Platelet Volume 9.1 Immature Granulocytes % 0.800 H Neutrophils % 65.2 Lymphocytes % 9.1 L Monocytes % 19.4 H Eosinophils % 4.7 Basophils % 0.8 Nucleated Red Blood Cells % 0.0 Immature Granulocytes # 0.030 Neutrophils # 2.4 Lymphocytes # 0.3 L Monocytes # 0.7 Eosinophils # 0.2 Basophils # 0.0 Nucleated Red Blood Cells # 0.0 Sodium Level 127 L Potassium Level 3.7 Chloride Level 98 Carbon Dioxide Level 19 L Anion Gap 10 Blood Urea Nitrogen 22 H Creatinine 0.65 Est Glomerular Filtrat Rate mL/min > 60 Glucose Level 81 Hemoglobin A1c 5.4 Calcium Level 7.9 L Phosphorus Level 5.6 H Magnesium Level 1.9 Total Bilirubin 0.4 Direct Bilirubin 0.00 Indirect Bilirubin 0.4 Aspartate Amino Transf (AST/SGOT) 57 H Alanine Aminotransferase (ALT/SGPT) 48 Alkaline Phosphatase 147 H Total Protein 5.4 #L Albumin 2.7 L Globulin 2.70 Albumin/Globulin Ratio 1.00 Triglycerides Level 60 Cholesterol Level 72 L LDL Cholesterol, Calculated 20 HDL Cholesterol 40 Cholesterol/HDL Ratio 1.8 Body Fluid Type ABDOMINAL Body Fluid Volume 11.0 Body Fluid Color YELLOW Body Fluid Appearance SLIGHTLY CLOUDY Body Fluid WBC 61 Body Fluid RBC (Auto) 2000 Body Fluid Polynuclear WBCs (%) 18.0 Body Fluid Mononuclear Cells % Auto 82.0 Medications Medication Current Medications Ceftriaxone Sodium 50 ml @ 100 mls/hr Q24H IVPB Last administered on 09/03/18at 14:03; Admin Dose 100 MLS/HR; Start 09/03/18 at 12:30 IV Flush (NS 3 ml) 3 ml PER PROTOCOL IV ; Start 09/02/18 at 12:30 Ondansetron HCl (Zofran Inj) 4 mg Q6H PRN IV NAUSEA/VOMITING; Start 09/02/18 at 12:30 Acetaminophen (Tylenol Tab) 650 mg Q6H PRN PO .PAIN 1-3 OR TEMP Last administered on 09/02/18at 22:45; Admin Dose 650 MG; Start 09/02/18 at 12:30 Acetaminophen (Tylenol Supp) 650 mg Q6H PRN [place] .PAIN 1-3 OR TEMP; Start at 12:30 Morphine Sulfate (morphine) 2 mg Q4H PRN IV .SEVERE PAIN 7-10; Start 09/02/18 at 12:30 Pantoprazole (Protonix Iv) 40 mg DAILY@06 IV Last administered on 09/03/18at 06:07; Admin Dose 40 MG; Start 09/03/18 at 06:00 Lactulose (Enulose) 20 gm DAILY PRN PO CONSTIPATION; Start 09/02/18 at 13:00 ANKUR BEST NP Sep 03, 2018 19:00
[2018-09-03 20:00] VITALS: BP 102/64; PULSE 84; RESP 18
[2018-09-03] MEDS: ACETAMINOPHEN 325 MG TAB PO PRN (21:23)
[2018-09-04] MEDS: morphine 2 MG INJ IV PRN ×3 (01:01→11:44)
[2018-09-04 02:00] VITALS: BP 90/56; PULSE 73; RESP 18
[2018-09-04 05:50] VITALS: BP 105/58; PULSE 88; RESP 17
[2018-09-04] MEDS: PANTOPRAZOLE 40 MG INJ IV SCH (05:56)
[2018-09-04 08:00] VITALS: BP 99/51; PULSE 86; RESP 18
--- NOTE | 2018-09-04 08:54 | PN ---
DATE: 09/04/2018 SUBJECTIVE: The patient is stable, no events overnight. No fevers, chills, nausea, or vomiting. OBJECTIVE: VITAL SIGNS: Blood pressure is 99/51, pulse 86, respirations 18, temperature 98.8. HEENT: Head is normocephalic. NECK: Supple. HEART: Regular rate. LUNGS: Show diminished breath sounds at the base. ABDOMEN: Soft, nontender to palpation, positive drain noted. EXTREMITIES: Negative for clubbing, cyanosis. Trace edema. DERMATOLOGIC: No rashes. MUSCULOSKELETAL: No joint effusion. NEUROLOGIC: No change in exam. MEDICATIONS: Reviewed. LABORATORY DATA: Shows sodium 128, BUN 21, creatinine 0.72. White count 3.7, hemoglobin 9.9, platel et count is 62. ASSESSMENT AND PLAN: 1. Hypernatremia. Etiology is multifactorial secondary to ETOH cirrhosis, possible component of vol ume depletion. The patient is status post IV albumin. The patient's sodium level has slowly been im proving with free water restriction. At this point, we will continue current treatment plan. Contin ue free water restriction. We would defer any diuretic therapy at this time. 2. Hyperkalemia, etiology may be secondary to volume depletion, questionable Aldactone effect. The patient's potassium levels have normalized. Continue to monitor. 3. Acidosis, likely compensatory. Continue to monitor. 4. Anemia. Monitor hemoglobin and hematocrit levels. 5. Abdominal fluid collection, possible SBP. Continue current antibiotic therapy. 6. Decompensated cirrhosis. The patient has noted ascites. A drain is in place. We will continue to monitor. 7. Ventral hernia with status post repair. The patient may have an underlying seroma. Continue to monitor. Follow up with general surgery. The patient may need fluid removal. Dictated By: SITA PEPPER DO NR/NTS Conf#: [id number] DID#: [id number] CC: RENE RUIZ MD; MAGGIE LALA MD;*End*
--- NOTE | 2018-09-04 11:53 | PN ---
Date/Time of Note Date/Time of Note DATE: 09/04/18 TIME: 11:52 Assessment/Plan VTE Prophylaxis Risk score (from Ns)>0 risk: 3 SCD applied (from Ns): Yes Pharmacological prophylaxis: NA/contraindicated Pharm contraindication: low risk/ambulating Lines/Catheters IV [facility]ter Type [facility]from [facility]): Saline Lock Urinary Cath still in place: No Assessment/Plan Hospital Course SUBJECTIVE: No acute distress. OBJECTIVE: Vital signs-see below PHYSICAL EXAM: Constitutional: Well-developed, adequately built, lying in bed comfortably. Psych: nl mood/affect, no complaints Head: atraumatic, normocephalic Eyes: nl conjunctiva, nl sclera ENMT: mucosa pink and moist, nl external ears & nose Neck: non-tender, supple Respiratory: clear to auscultation, normal air movement Cardiovascular: nl pulses, regular rate and rhythm Gastrointestinal: No further leaking from midline incision. Drain placed bilaterally, draining minimal to moderate amount..Bowel sounds active in all 4 quadrants. Musculoskeletal/extremities: nl extremities to inspection, motor strength equal bilaterally, no focal deficit. Normal pulses,no cyanosis, no edema. Neurological: Alert oriented 3,nl speech, nl strength Skin: nl turgor ASSESSMENT/PLAN:52-year-old male with EtOH cirrhosis, ascites, status post emergent repair for strangulated ventral hernia about [address] Anderson, delayed healing of abdominal wall wound secondary to persistent ascites required CT-guided abdominal fluid drainage bag placement, presented back with leaking ascites fluid, without seeing much drainage in the drainage bag, associated with fevers, abdominal pain. 1. Leaking surgical abdominal wound secondary to loculated fluid collection -Not much ascites. Status post CT-guided drain placed to left side=> leaking resolved. Site culture growing GNR -Continue empiric antimicrobial and follow-up cultures. -Follow-up surgical recommendations 2. SIRS secondary to #1 -Stable. Treatment as above 3. Electrolyte derangement/hyponatremia/hyperkalemia -Improved. -Continue free water restriction. -f/u nephrology recommendations. 4. Decompensated alcoholic liver cirrhosis with recurrent ascites. -Not a candidate for Lasix or Aldactone secondary to left leg derangement. -Continue lactulose prophylaxis. Continue ceftriaxone empirically for SBP prophylaxis. 5. Status post emergent repair of strangulated ventral hernia 2 weeks ago. -Follow-up surgical recommendations. 6. Anemia of alcoholic liver disease. -Stable H&H. We will continue to monitor. DVT prophylaxis: SCDs PUD prophylaxis: Protonix CODE STATUS: Full code Diet: Regular diet, free water restriction. Disposition: Overall, patient with improved drainage site status. He is cleared from a surgical standpoint for outpatient follow-up. However, patient is growing gram-negative and wound culture which we will follow-up and DC planning w/ appropriate antibiotic recommendation from ID colleague.. Patient was seen in collaboration with Dr. Vanegas. Result Diagram: 09/04/18 0504 09/04/18 0504 Results 24hrs Laboratory Tests Test 09/03/18 12:30 09/04/18 05:04 Body Fluid Type ABDOMINAL Body Fluid Volume 11.0 Body Fluid Color YELLOW Body Fluid Appearance SLIGHTLY CLOUDY Body Fluid WBC 61 Body Fluid RBC (Auto) 2000 Body Fluid Polynuclear WBCs (%) 18.0 Body Fluid Mononuclear Cells % Auto 82.0 White Blood Count 3.7 L Red Blood Count 3.49 L Hemoglobin 9.9 L Hematocrit 28.8 L Mean Corpuscular Volume 82.5 Mean Corpuscular Hemoglobin 28.4 L Mean Corpuscular Hemoglobin Concent 34.4 Red Cell Distribution Width 15.6 H Platelet Count 62 L Mean Platelet Volume 9.3 Immature Granulocytes % 0.500 H Neutrophils % 50.1 Lymphocytes % 22.8 Monocytes % 19.0 H Eosinophils % 7.3 H Basophils % 0.3 Nucleated Red Blood Cells % 0.0 Immature Granulocytes # 0.020 Neutrophils # 1.9 Lymphocytes # 0.8 Monocytes # 0.7 Eosinophils # 0.3 Basophils # 0.0 Nucleated Red Blood Cells # 0.0 Sodium Level 128 L Potassium Level 4.6 Chloride Level 100 Carbon Dioxide Level 20 L Anion Gap 8 Blood Urea Nitrogen 21 H Creatinine 0.72 Est Glomerular Filtrat Rate mL/min > 60 Glucose Level 83 Calcium Level 7.9 L Phosphorus Level 4.4 Magnesium Level 1.9 Exam/Review of Systems Exam Vitals Vital Signs Date Temp Pulse Resp B/P (MAP) Pulse Ox O2 O2 Flow FiO2 Time Delivery Rate 09/04/18 98.8 86 18 99/51 (67) 96 08:00 09/03/18 Room Air 15:00 09/02/18 10:09 Intake and Output 09/03/18 09/03/1819 1414:59 22:59 06:59 IntakeIntake Total 50 ml 450 ml OutputOutput Total 485 ml 400 ml 510 ml BalanceBalance -435 ml 50 ml -510 ml Results Results 24hrs Laboratory Tests Test 09/03/18 12:30 09/04/18 05:04 Body Fluid Type ABDOMINAL Body Fluid Volume 11.0 Body Fluid Color YELLOW Body Fluid Appearance SLIGHTLY CLOUDY Body Fluid WBC 61 Body Fluid RBC (Auto) 2000 Body Fluid Polynuclear WBCs (%) 18.0 Body Fluid Mononuclear Cells % Auto 82.0 White Blood Count 3.7 L Red Blood Count 3.49 L Hemoglobin 9.9 L Hematocrit 28.8 L Mean Corpuscular Volume 82.5 Mean Corpuscular Hemoglobin 28.4 L Mean Corpuscular Hemoglobin Concent 34.4 Red Cell Distribution Width 15.6 H Platelet Count 62 L Mean Platelet Volume 9.3 Immature Granulocytes % 0.500 H Neutrophils % 50.1 Lymphocytes % 22.8 Monocytes % 19.0 H Eosinophils % 7.3 H Basophils % 0.3 Nucleated Red Blood Cells % 0.0 Immature Granulocytes # 0.020 Neutrophils # 1.9 Lymphocytes # 0.8 Monocytes # 0.7 Eosinophils # 0.3 Basophils # 0.0 Nucleated Red Blood Cells # 0.0 Sodium Level 128 L Potassium Level 4.6 Chloride Level 100 Carbon Dioxide Level 20 L Anion Gap 8 Blood Urea Nitrogen 21 H Creatinine 0.72 Est Glomerular Filtrat Rate mL/min > 60 Glucose Level 83 Calcium Level 7.9 L Phosphorus Level 4.4 Magnesium Level 1.9 Medications Medication Current Medications Ceftriaxone Sodium 50 ml @ 100 mls/hr Q24H IVPB Last administered on 09/03/18at 14:03; Admin Dose 100 MLS/HR; Start 09/03/18 at 12:30 IV Flush (NS 3 ml) 3 ml PER PROTOCOL IV ; Start 09/02/18 at 12:30 Ondansetron HCl (Zofran Inj) 4 mg Q6H PRN IV NAUSEA/VOMITING; Start 09/02/18 at 12:30 Acetaminophen (Tylenol Tab) 650 mg Q6H PRN PO .PAIN 1-3 OR TEMP Last administered on 09/03/18at 21:23; Admin Dose 650 MG; Start 09/02/18 at 12:30 Acetaminophen (Tylenol Supp) 650 mg Q6H PRN NE .PAIN 1-3 OR TEMP; Start 09/02/18 at 12:30 Morphine Sulfate (morphine) 2 mg Q4H PRN IV .SEVERE PAIN 7-10 Last administered on 09/04/18at 11:44; Admin Dose 2 MG; Start 09/02/18 at 12:30 Pantoprazole (Protonix Iv) 40 mg DAILY@06 IV Last administered on 09/04/18at 05:56; Admin Dose 40 MG; Start 09/03/18 at 06:00 Lactulose (Enulose) 20 gm DAILY PRN PO CONSTIPATION; Start 09/02/18 at 13:00 CALE MONTERROSO NP Sep 04, 2018 11:53
[2018-09-04] MEDS: CEFTRIAXONE 2 GM/50 ML (PMX) 50 ML IVPB SCH (12:52)
--- NOTE | 2018-09-04 13:25 | CONS ---
DATE OF ADMISSION: 09/02/2018 DATE OF CONSULTATION: TYPE OF CONSULTATION: Infectious disease. REQUESTING PHYSICIAN: Alexis Kirkpatrick MD HISTORY OF PRESENT ILLNESS: The patient is a 52-year-old male who was admitted appr oximately 2 weeks postoperative repair of a ventral hernia. The patient has cirrhosis reportedly due to alcoholism and had a ventral hernia which was repaired. This apparently became symptomatic and r esulted in his admission to the hospital. On admission, he had aspiration of the fluid and culture w hich grew gram-positive cocci in pairs, gram-negative vahe and +1 white blood cell count. The patient 's white count on admission was 3600 with 65 polys, 9 lymphs, 19 monocytes and 5 eosinophils. The he matocrit was 28% and the platelet count was 55,000. The patient was placed on ceftriaxone intravenou sly after those results were obtained. The question is raised about the site of gram-positive cocci and so I recommended a chest x-ray be obtained in case this is Streptococcus pneumoniae which would b e covered by ceftriaxone and also that this and the gram-negative vahe could also be the result of spo ntaneous bacteremia due to cirrhosis. PHYSICAL EXAMINATION: GENERAL: Reveals slightly icteric male who is lying in bed with intravenous line and draina ge catheter draining clear medium dark yellow with drainage from his abdominal area midline with prec ipitated red blood cells in the collection tube and minimal amount of fluid in the collection bag. HEENT: The pupils are constricted, round and react to light. Extraocular movements are full. Mouth has moist mucous membranes. VITAL SIGNS: Temperature of 98.8, 86 pulse, 18 respirations, blood pressure 99/50 and pulse ox is 96 %. CHEST: Clear to auscultation. HEART: Regular. No murmur. ABDOMEN: Somewhat protuberant. There is a bandage the midline with drainage of peritoneal catheter exiting. There is minimal to no tenderness around the site. EXTREMITIES: Reveal trace edema. INITIAL IMPRESSION: 1. Infected abdominal wall ventral hernia repair wound. 2. Cirrhosis with splenomegaly. 3. Thrombocytopenia. 4. Rule out pneumonia. 5. Alcoholism. 6. Rule out hepatitis C. RECOMMENDATIONS: We would continue the present treatment with ceftriaxone, pending when the culture completes from the laboratory work with blood cultures and identification of the fluid organisms. Or scout a chest x-ray and get a serology for hepatitis C. Thank you, Dr. Alexis Kirkpatrick, for referring this interesting patient to Dr. Maggie Lala. Dictated By: Kendall ANDERSON MD EC/NTS Conf#: [id number] DID#: [id number] CC: ALEXIS KIRKPATRICK MD; MAGGIE LALA MD;*EndCC*
[2018-09-04] MEDS: ACETAMINOPHEN 325 MG TAB PO PRN (13:49)
[2018-09-04 14:00] VITALS: BP 105/62; PULSE 72; RESP 18
--- NOTE | 2018-09-04 14:08 | CONS ---
Assessment/Plan Assessment/Plan Hospital Course (Demo Recall) Patient is alert feels good, denies pain no fevers overnight Microbiology: Abdominal drainage culture multiple bacteria, final sensitivity pending Antimicrobials: Adam Physical examination: Well-developed well-nourished middle-aged man who is alert in no distress. Head atraumatic normocephalic. Neck is supple. Chest rise symmetrical. Breath sounds diminished at bases. Heart: S1-S2. Abdomen soft, bowel tones present patient has bilateral accordion drains on each side of the abdomen left one was placed today the right drainage catheter has a large amount of serous fluid Assessment: 1. Abdominal wall fluid collection, status post IR guided drainage with catheter placement, cultures preliminary growing gram-negative rods 2. Status post strangulated hernia repair 2 weeks ago 3. Anemia 4. Alcoholism with decompensated alcoholic cirrhosis Plan: Stable continue antibiotics and await for final cultures Consultation Date/Type/Reason Admit Date/Time Sep 02, 2018 at 11:17 Initial Consult Date Type of Consult id Date/Time of Note DATE: 09/04/18 TIME: 14:06 Exam/Review of Systems Exam Vitals Vital Signs Date Temp Pulse Resp B/P (MAP) Pulse Ox O2 O2 Flow FiO2 Time Delivery Rate 09/04/18 98.8 86 18 99/51 (67) 96 08:00 09/03/18 Room Air 15:00 09/02/18 10:09 Intake and Output 09/03/18 09/03/18 09/04/18 1515:00 23:00 07:00 IntakeIntake Total 50 ml 450 ml OutputOutput Total 485 ml 400 ml 510 ml BalanceBalance -435 ml 50 ml -510 ml Results Result Diagram: 09/04/18 0504 09/04/18 0504 Results 24hrs Laboratory Tests Test 09/04/18 05:04 White Blood Count 3.7 L Red Blood Count 3.49 L Hemoglobin 9.9 L Hematocrit 28.8 L Mean Corpuscular Volume 82.5 Mean Corpuscular Hemoglobin 28.4 L Mean Corpuscular Hemoglobin Concent 34.4 Red Cell Distribution Width 15.6 H Platelet Count 62 L Mean Platelet Volume 9.3 Immature Granulocytes % 0.500 H Neutrophils % 50.1 Lymphocytes % 22.8 Monocytes % 19.0 H Eosinophils % 7.3 H Basophils % 0.3 Nucleated Red Blood Cells % 0.0 Immature Granulocytes # 0.020 Neutrophils # 1.9 Lymphocytes # 0.8 Monocytes # 0.7 Eosinophils # 0.3 Basophils # 0.0 Nucleated Red Blood Cells # 0.0 Sodium Level 128 L Potassium Level 4.6 Chloride Level 100 Carbon Dioxide Level 20 L Anion Gap 8 Blood Urea Nitrogen 21 H Creatinine 0.72 Est Glomerular Filtrat Rate mL/min > 60 Glucose Level 83 Calcium Level 7.9 L Phosphorus Level 4.4 Magnesium Level 1.9 Medications Medication Current Medications Ceftriaxone Sodium 50 ml @ 100 mls/hr Q24H IVPB Last administered on 09/04/18 12:52; Admin Dose 100 MLS/HR; Start 09/03/18 at 12:30 IV Flush (NS 3 ml) 3 ml PER PROTOCOL IV ; Start 09/02/18 at 12:30 Ondansetron HCl (Zofran Inj) 4 mg Q6H PRN IV NAUSEA/VOMITING; Start 09/02/18 at 12:30 Acetaminophen (Tylenol Tab) 650 mg Q6H PRN PO .PAIN 1-3 OR TEMP Last administered on 09/04/18at 13:49; Admin Dose 650 MG; Start 09/02/18 at 12:30 Acetaminophen (Tylenol Supp) 650 mg Q6H PRN [place] .PAIN 1-3 OR TEMP; Start 09/02/18 at 12:30 Morphine Sulfate (morphine) 2 mg Q4H PRN IV .SEVERE PAIN 7-10 Last administered on 09/04/18at 11:44; Admin Dose 2 MG; Start 09/02/18 at 12:30 Pantoprazole (Protonix Iv) 40 mg DAILY@06 IV Last administered on 09/04/18at 05:56; Admin Dose 40 MG; Start 09/03/18 at 06:00 Lactulose (Enulose) 20 gm DAILY PRN PO CONSTIPATION; Start 09/02/18 at 13:00 ANKUR BEST NP Sep 04, 2018 14:07
[2018-09-04 20:00] VITALS: BP 98/52; PULSE 79; RESP 18
[2018-09-05 02:00] VITALS: BP 95/85; PULSE 71; RESP 18
[2018-09-05] MEDS: morphine 2 MG INJ IV PRN (03:48)
[2018-09-05] MEDS ORDERED: FAMOTIDINE 20 MG INJ IV SCH (06:00)
[2018-09-05 07:40] VITALS: BP 100/60; PULSE 65; RESP 18
--- NOTE | 2018-09-05 09:05 | PN ---
DATE: 09/05/2018 SUBJECTIVE: The patient is stable, no events overnight. No fevers, chills, nausea, vomiting. OBJECTIVE: VITAL SIGNS: Blood pressure is 100/60, respiration 18, pulse 65, temperature 98.3. HEENT: Head is normocephalic. NECK: Supple. HEART: Regular rate. LUNGS: Show diminished breath sounds at the base. ABDOMEN: Soft, nontender to palpation. No rebound or guarding. EXTREMITIES: Negative for clubbing, cyanosis, no edema. DERMATOLOGIC: No rashes. MUSCULOSKELETAL: No joint effusion. NEUROLOGIC: No change in exam. MEDICATIONS: Reviewed. LABORATORY DATA: Has been reviewed. The patient has sodium 124, potassium 4.6, BUN 18, creatinine 4 .56. White count 8.7, hemoglobin 9.9, platelet count is 62. ASSESSMENT AND PLAN: 1. Hyponatremia, etiology is multifactorial secondary to ETOH cirrhosis. The patient may have had a component of volume depletion. The patient is status post IV albumin. The patient's sodium levels were initially improving; however, declined in the last 24 hours. We will continue to encourage free water restriction. Defer any diuretic therapy. If sodium levels do not improve, would consider sta rting patient on Combivent and . 2. Hyperkalemia, resolved. Continue to monitor. 3. Acidosis, likely compensatory. Continue current treatment plan. 4. Anemia. Continue to monitor hemoglobin and hematocrit levels. 5. Abdominal fluid collection, possible SVT. Continue current regimen. 6. Decompensated cirrhosis. The patient has noted ascites. A drain was in place. Will continue to monitor. 7. Ventral hernia, status post repair. The patient may have underlying seroma. Continue to monitor . Follow up with general surgery. May require further fluid removal. Dictated By: SITA PEPPER DO NR/NTS Conf#: [id number] DID#: [id number]
[2018-09-05] MEDS: ACETAMINOPHEN 325 MG TAB PO PRN (09:22)
--- NOTE | 2018-09-05 12:28 | PDOCDIS ---
Discharge Instructions CONDITION [id number] Patient Condition: [id number] Stable HOME CARE INSTRUCTIONS: [id number] Diet Instructions: [id number] Regular FOLLOW UP/APPOINTMENTS Follow-up Plan Follow-up with Dr. Anderson in 2 weeks in his office. [address] [place] [address] Office Follow-up with primary care physician in 1 week CALE MONTERROSO NP Sep 05, 2018 12:28
--- NOTE | 2018-09-05 12:42 | DS ---
Date/Time of Note Date/Time of Note DATE: 09/05/18 TIME: 12:40 Discharge Summary Admission/Discharge Info Admit Date/Time Sep 02, 2018 at 11:17 Discharge Date/Time Discharge Diagnosis 1. Leaking surgical abdominal wound secondary to loculated fluid collection Status post CT-guided drain placed to left side=> leaking resolved. Site culture growing GNR 2. SIRS secondary to #1 3. Electrolyte derangement/chronic hyponatremia/hyperkalemia 4. Decompensated alcoholic liver cirrhosis with recurrent ascites. 5. Status post emergent repair of strangulated ventral hernia 2 weeks ago. 6. Anemia of alcoholic liver disease. Patient Condition: Stable Consults Dr. Anderson, surgery Procedures 09/03/2018: CT guided anterior abdominal wall subcutaneous fluid collection drainage. Hx of Present Illness She is a 52-year-old male with EtOH cirrhosis, ascites, status post emergent repair for strangulated ventral hernia about [address] Anderson, delayed healing of abdominal wall wound secondary to persistent ascites required CT-guided abdominal fluid drainage bag placement, presented back with leaking ascites fluid, without seeing much drainage in the drainage bag, associated with fevers, abdominal pain. She has been sober. He was never evaluated with a liver specialist.No hx TIPS or oupt f/u. In the emergency room, patient was noted with soft abdominal wound dressing with no output noted in the drainage bag. Patient also had a sodium level 123, potassium 5.9, AST 76, alkaline phosphatase 271, hemoglobin 12.3, hematocrit 35.6. Patient also had a temperature 100.3. Stable blood pressure. Patient denied any acute discomfort, chest pain, palpitation, shortness of breath, nausea, vomiting or other distress. Ultrasound-guided paracentesis was ordered from the emergency room, patient was given ceftriaxone 1 g. Hospital Course 52-year-old male with EtOH cirrhosis, ascites, status post emergent repair for strangulated ventral hernia about [address] Anderson, delayed healing of abdominal wall wound secondary to persistent ascites required CT-guided abdominal fluid drainage bag placement, presented back with leaking ascites fluid, without seeing much drainage in the drainage bag, associated with fevers, abdominal pain. Patient did not have much ascites. Surgeon recommended another CT-guided drain placement to left side to improve the leaking and to help heal the midline surgical wound. Patient underwent IR guided drain placement to his left abdomen. Drain was fully functional. Abdominal wound site culture grew polymicrobial including Acinectobactor. Patient was being followed by infectious disease colleague and was continued on appropriate antimicrobial. There is no further fevers or signs of SIRS. Patient was also noted with hyponatremia which is chronic for which he was continued on free water restriction per manager customer service. Sodium remained stable at his baseline. Patient did not have any neurological deterioration or symptoms. Patient was not a candidate for Lasix or Aldactone for his decompensated alcoholic liver cirrhosis with recurrent ascites secondary to electrolytes derangement and right kidney function. I have counseled patient on getting a wood cabinetmaker after discharge for possible consideration for a TIPS if he is qualified for that. This was recommended multiple times to this patient in the past for which he did not have any follow-up at any time. At this time, patient with benign abdominal exam. Surgical wound healing. Drain is functional. Abdomen soft. Tolerating diet and activities well. Patient is cleared from a surgical standpoint for discharge with outpatient follow-up and 1-2 weeks and at that time if he is clinically stable, both drains can be removed. As per discussion with infectious disease colleague, we decided to send patient on 10 days on Levaquin and amoxicillin p.o. Again, patient was repeatedly counseled on following up with his surgeon for checking drain status and possible removal in next couple weeks. We will also try to get home health for drain management, if not nursing staff to educate patient on how to empty drain and site care. Please note that patient already had drain on his right abdominal which he was taking care of at home prior to admission. Approximately 60 m spent on coordinating the discharge on this patient. Patient was seen in collaboration with Dr. Vanegas. Home Meds Active Scripts Amoxicillin* (Amoxil*) 500 Mg Tablet, 500 MG PO Q8 for 10 Days, #30 TAB Prov:MONTERROSO,CALE V. COSMETIC ACCOUNT COORDINATOR 09/05/18 Levofloxacin* (Levofloxacin*) 500 Mg Tablet, 500 MG PO DAILY for 10 Days, #10 TAB Prov:MONTERROSO,CALE V. COSMETIC ACCOUNT COORDINATOR 09/05/18 Reported Medications Pantoprazole* (Pantoprazole*) 40 Mg Tablet., 40 MG PO AC BREAKFAST, TAB 07/23/18 Furosemide* (Furosemide*) 20 Mg Tablet, 20 MG PO DAILY, #60 TAB 07/15/18 Follow-up Plan Follow-up with Dr. Anderson in 2 weeks in his office. [address] [place] [address] Office Follow-up with primary care physician in 1 week Primary Care Provider Care Physician No Primary Pending Labs Laboratory Tests Test 09/05/18 06:30 Sodium Level 124 mmol/L (135-144) Potassium Level 4.6 mmol/L (3.5-5.1) Chloride Level 98 mmol/L (97-110) Carbon Dioxide Level 20 mmol/L (21-31) Anion Gap 6 (5-13) Blood Urea Nitrogen 18 mg/dl (7-20) Creatinine 0.56 mg/dl (0.61-1.24) Est Glomerular Filtrat Rate mL/min > 60 mL/min (>60) Glucose Level 88 mg/dl (70-220) Calcium Level 7.7 mg/dl (8.4-10.2) Phosphorus Level 3.9 mg/dl (2.5-4.9) Magnesium Level 1.9 mg/dl (1.7-2.5) CALE MONTERROSO NP Sep 05, 2018 12:42
[2018-09-05] MEDS: CEFTRIAXONE 2 GM/50 ML (PMX) 50 ML IVPB SCH (13:27)
[2018-09-05] MEDS ORDERED: AMOX500T PO (13:37)
[2018-09-05] MEDS ORDERED: LEVO500T10 PO (13:37)
[2018-09-05 14:35] VITALS: BP 107/64; PULSE 77; RESP 16
--- NOTE | 2018-09-05 16:32 | CONS ---
Assessment/Plan Assessment/Plan Hospital Course (Demo Recall) 1400 Patient is alert feels good, denies pain no fevers overnight Microbiology: Abdominal drainage culture grew Acinetobacter Jonathan enterococcus and alpha hemolytic strep species Antimicrobials: Rocephin Physical examination: Well-developed well-nourished middle-aged man who is alert in no distress. Head atraumatic normocephalic. Neck is supple. Chest rise symmetrical. Breath sounds diminished at bases. Heart: S1-S2. Abdomen soft, bowel tones present patient has bilateral accordion drains on each side of the abdomen left one was placed today the right drainage catheter has a large amount of serous fluid Assessment: 1. Abdominal wall fluid collection, status post IR guided drainage with catheter placement, cultures preliminary growing gram-negative rods 2. Status post strangulated hernia repair 2 weeks ago 3. Anemia 4. Alcoholism with decompensated alcoholic cirrhosis Plan: Remains stable, plan to discharge home on oral Levaquin and amoxicillin for 10 more days Consultation Date/Type/Reason Admit Date/Time Sep 02, 2018 at 11:17 Initial Consult Date Type of Consult id Date/Time of Note DATE: 09/05/18 TIME: 16:32 Exam/Review of Systems Exam Vitals Vital Signs Date Temp Pulse Resp B/P (MAP) Pulse Ox O2 O2 Flow FiO2 Time Delivery Rate 09/05/18 98.3 77 16 107/64 98 Room Air 14:35 (78) 09/02/18 10:09 Intake and Output 09/04/18 09/04/18 09/05/18 1515:00 23:00 07:00 IntakeIntake Total 750 ml 240 ml 250 ml OutputOutput Total 1300 ml 310 ml 2200 ml BalanceBalance -550 ml -70 ml -1950 ml Results Result Diagram: 09/04/18 0504 09/05/18 0630 Results 24hrs Laboratory Tests Test 09/05/18 06:30 Sodium Level 124 L Potassium Level 4.6 Chloride Level 98 Carbon Dioxide Level 20 L Anion Gap 6 Blood Urea Nitrogen 18 Creatinine 0.56 L Est Glomerular Filtrat Rate mL/min > 60 Glucose Level 88 Calcium Level 7.7 L Phosphorus Level 3.9 Magnesium Level 1.9 ANKUR BEST NP Sep 05, 2018 16:32
== END 2018-09-05 16:05 | disposition home health service (06) | DRG 919 ==
LOC: E/R 08:30 → PP2 11:17 → EDBEDREQSVC 12:05 → EDBEDREQ 12:05 → CANRESERV 14:47 → EDBEDREQ 17:54 → EDBEDREQTM 17:54 → EDBEDREQSVC 17:54
PROVIDERS: ADMIT Internal Medicine; ATTEND Internal Medicine
PROC: 0W9F30Z Drainage of Abdominal Wall with Drainage Device, Percutaneous Approach (ICD-10-PCS; principal; 2018-09-03)
DX: L76.34 Postprocedural seroma of skin and subcutaneous tissue following other procedure (principal); K65.2 Spontaneous bacterial peritonitis; E87.1 Hypo-osmolality and hyponatremia; E87.2 Acidosis; T81.89XA Other complications of procedures, not elsewhere classified, initial encounter; E87.5 Hyperkalemia; K70.31 Alcoholic cirrhosis of liver with ascites; D63.8 Anemia in other chronic diseases classified elsewhere; D64.9 Anemia, unspecified; F10.20 Alcohol dependence, uncomplicated; B95.0 Streptococcus, group A, as the cause of diseases classified elsewhere; B95.2 Enterococcus as the cause of diseases classified elsewhere; Y83.8 Other surgical procedures as the cause of abnormal reaction of the patient, or of later complication, without mention of misadventure at the time of the procedure; Y92.019 Unspecified place in single-family (private) house as the place of occurrence of the external cause
CPT/HCPCS: 36415; 71045; 74177; 76705; 77012; 80048; 80053; 80061; 81003; 82043; 83036; 83605; 83735; 83935; 84100; 84155; 84300; 84484; 85025; 85610; 85730; 87040; 87045; 87070; 87075; 87086; 87102; 87116; 87522; 89051; 93005; 96365; 96375; C1729; C9113; J0696; J2270; J2405; J3370; P9047; Q9967

== ENCOUNTER 2018-09-12 08:57 | Inpatient (IN) | payer MEDICAID ==
[~2018-09-12] VITALS: Ht 167.6 cm; Wt 65.2 kg
[~2018-09-12 08:57] MED LIST changes: +AMOX500T PO; -FURO20TA3 PO; +LEVO500T10 PO
[2018-09-12] MEDS ORDERED: HYDROmorphONE 1 MG/ML SYG IV STA (10:23)
[2018-09-12] MEDS ORDERED: ONDANSETRON 4 MG INJ IV STA (10:23)
[2018-09-12] MEDS ORDERED: IOHEXOL 300MG/ML 150 ML BTL ONE (11:04)
[2018-09-12] MEDS ORDERED: SOD CHLORIDE 0.9% 100 ML ONE (11:04)
--- NOTE | 2018-09-12 12:54 | ERD ---
ER Documentation Chief Complaint Chief Complaint Complains of abdominal pain Hx of Ascites HPI This is a 52-year-old male who was recently admitted for cloudy peritoneal fluid and was found to have peritonitis. He also underwent hernia repair by Dr. Anderson. The hernia was in the umbilicus. The patient says he is back now because he is having nausea with diffuse abdominal pain. He says this is been getting worse over the past 2 days. Says he is no longer having drainage in the hernia drain and his ascites drain is still draining and he thinks it is cloudy. He says he does not know if he is had a fever but does not think so. No vomiting no diarrhea complains of general malaise ROS All systems reviewed and are negative except as per history of present illness. Medications Home Meds Discontinued Reported Medications Pantoprazole* (Pantoprazole*) 40 Mg Tablet.dr, 40 MG PO AC BREAKFAST, TAB 07/23/18 Furosemide* (Furosemide*) 20 Mg Tablet, 20 MG PO DAILY, #60 TAB 07/15/18 Discontinued Scripts Amoxicillin* (Amoxil*) 500 Mg Tablet, 500 MG PO Q8 for 10 Days, #30 TAB Prov:MONTERROSO,CALE V[employer] TWISTING MACHINE OPERATOR 09/05/18 Levofloxacin* (Levofloxacin*) 500 Mg Tablet, 500 MG PO DAILY for 10 Days, #10 TAB Prov:MONTERROSOCALE V. PRETZEL TWISTING MACHINE OPERATOR 09/05/18 Allergies Allergies: Coded Allergies: No Known Allergy (Unverified , 09/12/18) PMhx/Soc History of Surgery: Yes (leg surgery,hernia repair with abdominal drain) Anesthesia Reaction: No Hx Neurological Disorder: No Hx Respiratory Disorders: No Hx Cardiac Disorders: Yes (hypotension) Hx Psychiatric Problems: No Hx Miscellaneous Medical Probl: Yes (Cirrhosis with ascites, umbilical hernia) Hx Alcohol Use: No (hx of alcohol abuse) Hx Substance Use: No Hx Tobacco Use: No Smoking Status: Never smoker FmHx Family History: No coronary disease Physical Exam Vitals Vital Signs Date Temp Pulse Resp B/P (MAP) Pulse Ox O2 O2 Flow FiO2 Time Delivery Rate 09/12/18 75 20 101/74 100 Room Air 12:42 (83) 09/12/18 86 20 103/71 100 Room Air 10:39 (82) 09/12/18 97.8 91 20 124/73 100 09:00 (90) Physical Exam Const: Well-developed, well-nourished Head: Atraumatic, normocephalic Eyes: Normal Conjunctiva, PERRLA, EOMI, normal sclera, no nystagmus ENT: Normal External Ears, Nose and Mouth, moist mucus membranes. Neck: Full range of motion. No meningismus, no lymphadenopathy. Resp: Clear to auscultation bilaterally, no wheezing, rhonchi, rales Cardio: Regular rate and rhythm, no murmurs, S1 S2 present Abd: Soft, diffuse mild to moderate tenderness with a right ascites drain and left umbilical hernia drain, non distended. Normal bowel sounds, no guarding or rebound, no pulsitile abdominal masses or bruits Skin: No petechiae or rashes, no ecchymosis , no maculopapular rash Back: No midline or flank tenderness Ext: No cyanosis, or edema, FROM x 4, normal inspection, neurovascularly intact x 4 Neur: Awake and alert, STR 5/5 x 4, sensation intact x 4, no focal findings, cerebellum intact Psych: Normal Mood and Affect Result Diagram: 09/12/18 1035 09/12/18 1035 Results 24 hrs Laboratory Tests Test 09/12/18 10:23 09/12/18 10:35 Urine Color ANTONIA Urine Clarity SLIGHTLY CLOUDY Urine pH 6.0 Urine Specific [place] 1.026 Urine Ketones NEGATIVE mg/dL Urine Nitrite NEGATIVE mg/dL Urine Bilirubin NEGATIVE mg/dL Urine Urobilinogen NEGATIVE mg/dL Urine Leukocyte Esterase NEGATIVE Ak[place]/ul Urine Microscopic RBC 1 /HPF Urine Microscopic WBC 1 /HPF Urine Mucus FEW /HPF Urine Hemoglobin NEGATIVE mg/dL Urine Glucose NEGATIVE mg/dL Urine Total Protein NEGATIVE mg/dl White Blood Count 7.4 10^3/ul Red Blood Count 3.91 10^6/ul Hemoglobin 11.0 g/dl Hematocrit 33.6 % Mean Corpuscular Volume 85.9 fl Mean Corpuscular Hemoglobin 28.1 pg Mean Corpuscular Hemoglobin Concent 32.7 g/dl Red Cell Distribution Width 15.8 % Platelet Count 87 10^3/UL Mean Platelet Volume 9.5 fl Immature Granulocytes % 1.700 % Neutrophils % 75.1 % Lymphocytes % 7.9 % Monocytes % 11.4 % Eosinophils % 3.4 % Basophils % 0.5 % Nucleated Red Blood Cells % 0.0 /100WBC Immature Granulocytes # 0.130 10^3/ul Neutrophils # 5.6 10^3/ul Lymphocytes # 0.6 10^3/ul Monocytes # 0.9 10^3/ul Eosinophils # 0.3 10^3/ul Basophils # 0.0 10^3/ul Nucleated Red Blood Cells # 0.0 10^3/ul Sodium Level 129 mmol/L Potassium Level 5.2 mmol/L Chloride Level 108 mmol/L Carbon Dioxide Level 16 mmol/L Anion Gap 5 Blood Urea Nitrogen 19 mg/dl Creatinine 0.65 mg/dl Est Glomerular Filtrat Rate mL/min > 60 mL/min Glucose Level 128 mg/dl Calcium Level 8.1 mg/dl Total Bilirubin 0.3 mg/dl Direct Bilirubin 0.00 mg/dl Indirect Bilirubin 0.3 mg/dl Aspartate Amino Transf (AST/SGOT) 78 IU/L Alanine Aminotransferase (ALT/SGPT) 39 IU/L Alkaline Phosphatase 248 IU/L Total Protein 5.6 g/dl Albumin 2.6 g/dl Globulin 3.00 g/dl Albumin/Globulin Ratio 0.86 Lipase 213 U/L Current Medications Medications Dose Sig/Asra Start Time Status Last (Trade) Ordered Route PRN Stop Time Admin Dose Reason Admin 1 mg ONCE STAT 09/12/18 DC 09/12/18 Hydromorphone IV 10:23 10:37 HCl 09/12/18 10:24 (Dilaudid) Ondansetron 4 mg ONCE STAT 09/12/18 DC 09/12/18 HCl (Zofran IV 10:23 10:37 Inj) 09/12/18 10:24 IV Flush 10 ml STK-MED 09/12/18 DC 09/12/18 (NS 10 ml) ONCE .ROUTE 11:04 11:18 09/12/18 11:05 Sodium 100 ml @ ud STK-MED 09/12/18 DC 09/12/18 Chloride ONCE .ROUTE 11:04 11:18 09/12/18 11:05 Iohexol 150 ml STK-MED 09/12/18 DC 09/12/18 (Omnipaque ONCE .ROUTE 11:04 11:19 300mg/ ml) 09/12/18 11:05 Procedures/MDM PROCEDURE: CT Abdomen and Pelvis with contrast CLINICAL INDICATION: Abdominal pain, status post hernia repair TECHNIQUE: Transaxial computed tomographic images of the abdomen and pelvis were obtained following the uneventful administration of 90 mL Omnipaque-300 intravenous contrast according to standard protocol. Coronal and sagittal reformatted images were provided. DICOM images are available. Radiation dose: CTDIvol (mGy) = 10.14; total DLP (mGy.cm) = 610.64. One or more of the following dose reduction techniques were used: - Automated exposure control. - Adjustment of the mA and/or kV according to patient size. - Use of iterative reconstruction technique. COMPARISON: 09/02/2018. FINDINGS: The visualized lung bases are clear. There is no pleural effusion. There is bilateral gynecomastia. The liver is shrunken with nodular surface and hypertrophy of the left lateral segment and caudate lobe representing hepatic cirrhosis. No focal hepatic lesion is identified. There is no intrahepatic or extrahepatic biliary ductal dilatation. The gallbladder is distended. No gallstones are seen. There are enlarged perigastric varices representing sequela of portal hypertension. The spleen is enlarged measuring 13.6 cm cranial caudally and enhances homogeneously. The pancreas demonstrates hypoenhancement diffusely without pancreatic ductal dilatation or discrete fluid collection. The adrenal glands are normal. The kidneys enhance symmetrically without hydronephrosis or nephrolithiasis. Subcentimeter hypoattenuating lesions in both kidneys are too small to characterize but likely represent cysts. gallbladder, spleen, pancreas, adrenal glands, and kidneys are normal. The stomach is distended with ingested content. There is mild wall thickening of the stomach and duodenum. There is no evidence of intestinal obstruction. The appendix is not enlarged. There is mild wall thickening of the appendix which is decreased since the prior examination. There is no free intraperitoneal air. Small volume ascites is identified in the abdomen and pelvis. There is mild peritoneal enhancement in the pelvis. A percutaneous pigtail catheter enters the right anterior abdomen with the tip in the right pelvis. There is no suspicious mesenteric or retroperitoneal lymphadenopathy. The abdominal aorta is atherosclerotic but of normal diameter. There are postsurgical changes of ventral abdominal hernia mesh repair.A 1.8 x 3 cm fluid collection in the anterior abdominal wall with thickened rim and nondependent locules of gas is decreased in size from 3.5 x 5 cm respectively on the prior exam (series 3 image 113). A percutaneous pigtail catheter in the anterior abdominal wall in a second previously described fluid collection is identified. The fluid collection is significantly decreased in size with residual fluid measuring 4 cm transverse by 1.2 cm AP (series 3 image 101), previously measuring 9.9 cm transverse by 5 cm AP. Surgical marilyn are identified in the ventral abdomen near these fluid collections. Urinary bladder is nondistended and demonstrates mild diffuse wall thickening. The prostate is present. The osseous structures of the abdomen and pelvis are intact. IMPRESSION: 1. Shrunken nodular liver representing hepatic cirrhosis with sequela of portal hypertension including splenomegaly and small volume ascites. 2. Diffuse hypoenhancement of the pancreatic parenchyma likely representing sequela of chronic pancreatitis. 3. Mild wall thickening of the stomach, duodenum, small bowel loops, and the colon may relate to portal hypertension and presence of ascites. Clinical correlation is advised to rule out enterocolitis. 4. Mild peritoneal enhancement in the pelvis is nonspecific but may represent peritonitis. 5. Unchanged position of a percutaneous pigtail catheter in the pelvis. 6. Postsurgical changes of ventral hernia repair with mesh. Interval decrease in size of the a gas and fluid collection in the anterior abdominal wall near the site of surgical marilyn now measuring 1.8 x 3 cm. 7. Significant interval decrease in size of a second fluid collection in the anterior abdominal wall status post percutaneous pigtail catheter placement. 8. Mild wall thickening of the incompletely distended urinary bladder. Although this could relate to incomplete distension, correlation with urinalysis is recommended to rule out cystitis. RPTAT: AAEE Physician Nga Date Time Electronically viewed and signed by Physician Nga on 09/12/2018 11:50 RF/ CC: DAYTON DUMAS DO [id number] Peritoneal fluid drainage bag has cloudy fluid CT scan shows some peritonitis findings. Will send off fluid to the lab and will start antibiotics and admit. I spoke with Dr. jacobs and he will follow-up later Departure Diagnosis: Primary Impression: Peritonitis Additional Impression: Abdominal pain Abdominal location: generalized Qualified Codes: R10.84 - Generalized abdominal pain Condition: Stable DAYTON DUMAS DO Sep 12, 2018 12:54
[2018-09-12] MEDS ORDERED: ONDANSETRON 4 MG INJ IV PRN (15:00)
[2018-09-12] MEDS ORDERED: ACETAMINOPHEN 325 MG TAB PO PRN (15:00)
[2018-09-12] MEDS ORDERED: ERTAPENEM SODIUM 1 GM in SOD CHLORIDE 0.9% 100 ML IVPB ONE (15:00)
--- NOTE | 2018-09-12 15:51 | HP ---
Date/Time of Note Date/Time of Note DATE: 09/12/18 TIME: 15:45 Assessment/Plan VTE Prophylaxis SCD applied (from Nsg): Yes Pharmacological prophylaxis: heparin Lines/Catheters IV Catheter Type (from Nrsg): Saline Lock Assessment/Plan Hospital Course 52 yo male with h/o cirrhosis, recent umbilical hernia repair complicated by inf ection and fluid collection for which drains were placed. Now returns with purulent drainage from the drain. Imaging showing no discrete fluid collection but likely peritonitis - Will start him on zosyn, cultures show sensitive bugs - repeat cultures Hyponatremia: - FW restriction - Check urine studies Cirrhosis: - stable - hold diuretics while infected Result Diagram: 09/12/18 1035 09/12/18 1035 Results 24hrs Laboratory Tests Test 09/12/18 10:23 09/12/18 10:35 Urine Color ANTONIA Urine Clarity SLIGHTLY CLOUDY A Urine pH 6.0 Urine Specific [place] 1.026 Urine Ketones NEGATIVE Urine Nitrite NEGATIVE Urine Bilirubin NEGATIVE Urine Urobilinogen NEGATIVE Urine Leukocyte Esterase NEGATIVE Urine Microscopic RBC 1 Urine Microscopic WBC 1 Urine Mucus FEW A Urine Hemoglobin NEGATIVE Urine Glucose NEGATIVE Urine Total Protein NEGATIVE White Blood Count 7.4 # Red Blood Count 3.91 L Hemoglobin 11.0 L Hematocrit 33.6 L Mean Corpuscular Volume 85.9 Mean Corpuscular Hemoglobin 28.1 L Mean Corpuscular Hemoglobin Concent 32.7 Red Cell Distribution Width 15.8 H Platelet Count 87 #L Mean Platelet Volume 9.5 Immature Granulocytes % 1.700 H Neutrophils % 75.1 Lymphocytes % 7.9 L Monocytes % 11.4 H Eosinophils % 3.4 Basophils % 0.5 Nucleated Red Blood Cells % 0.0 Immature Granulocytes # 0.130 H Neutrophils # 5.6 Lymphocytes # 0.6 L Monocytes # 0.9 Eosinophils # 0.3 Basophils # 0.0 Nucleated Red Blood Cells # 0.0 Sodium Level 129 L Potassium Level 5.2 H Chloride Level 108 Carbon Dioxide Level 16 L Anion Gap 5 Blood Urea Nitrogen 19 Creatinine 0.65 Est Glomerular Filtrat Rate mL/min > 60 Glucose Level 128 Calcium Level 8.1 L Total Bilirubin 0.3 Direct Bilirubin 0.00 Indirect Bilirubin 0.3 Aspartate Amino Transf (AST/SGOT) 78 H Alanine Aminotransferase (ALT/SGPT) 39 Alkaline Phosphatase 248 H Total Protein 5.6 L Albumin 2.6 L Globulin 3.00 Albumin/Globulin Ratio 0.86 Lipase 213 HPI/ROS Admit Date/Time Admit Date/Time Hx of Present Illness 52 yo male with h/o cirrhosis, recent repair of umbilical hernia. This complicated by peritonitis and fluid collection for which accordion drains were placed two weeks ago. Went home with drains in place. Cultures grew sensitive GNRs. Today presetns with increased pain and has purulent drainage from R sided drain. No fevers or chills. Tolerating PO. ROS Constitutional: no complaints, improved Eyes: no complaints ENT: no complaints Respiratory: no complaints Cardiovascular: no complaints Gastrointestinal: no complaints Genitourinary: no complaints Musculoskeletal: no complaints Skin: no complaints Neurologic: no complaints Endocrine: no complaints Lymphatic: no complaints Psychological: no complaints, nl mood/affect Immunologic: no complaints PMH/Family/Social Past Medical History Cirrhosis Medications Current Medications Ondansetron HCl (Zofran Inj) 4 mg BRIDGE ORDER PRN IV NAUSEA/VOMITING; Start 09/12/18 at 15:00; Stop 09/13/18 at 14:59 Acetaminophen (Tylenol Tab) 650 mg ER BRIDGE PRN PO .MILD PAIN 1-3 OR TEMP; Start 09/12/18 at 15:00; Stop 09/13/18 at 14:59 Piperacillin Sod/ Tazobactam Sod 100 ml @ 200 mls/hr Q8 IVPB ; Start 09/12/18 at 22:00; Status UNV Coded Allergies: No Known Allergy (Unverified , 09/12/18) Past Surgical History Umbilical hernia repair Past Surgical Hx: other Family History Significant Family History: no pertinent family hx Social History Alcohol Use: none Smoking Status: Never smoker Drug Use: none Exam/Review of Systems Vital Signs Vitals Vital Signs Date Temp Pulse Resp B/P (MAP) Pulse Ox O2 O2 Flow FiO2 Time Delivery Rate 09/12/18 75 20 101/74 100 Room Air 12:42 (83) 09/12/18 97.8 09:00 Exam Exam Alert oriented Comfortable appearing No distress RRR Breahting comfortably Abodmen mildly distended. Umbilical hernia incision c/d/i. Has two accordion drains, R drain with daniel purulence. L drain with sanguinous fluid No edema ANDREIA GRAMAJO MD Sep 12, 2018 15:51
[2018-09-12] MEDS ORDERED: NACL 0.9% 3 ML SYG IV SCH (16:00)
--- NOTE | 2018-09-12 18:11 | CONS ---
DATE OF ADMISSION: 09/12/2018 DATE OF CONSULTATION: 09/12/2018 TYPE OF CONSULTATION: Infectious disease. REASON FOR CONSULTATION: Antibiotic management. HISTORY OF PRESENT ILLNESS: Jaylen Day is a pleasant 52-year-old male being seen in the emergency department for abdominal pain and possible peritonitis. The patient was recently admit jessie for a cloudy peritoneal fluid, was found to have peritonitis. He underwent a hernia repair by Dr Blake Anderson. The hernia was in the umbilicus. The patient has 2 drains coming out of his abdomen, one on the left side and one on the right side. He is now back with nausea and diffuse abdominal pain wh ich has been going on for a few days. He is no longer having drainage in the hernia site. ____ drai n is still draining and he thinks that it is cloudy. He has subjective fever. No nausea, vomiting o r diarrhea. No complaints of general malaise. The patient was on amoxicillin and Levaquin at home. PAST SURGICAL HISTORY: Status post leg surgery, hernia repair with abdominal drains. PAST MEDICAL HISTORY: The patient has alcoholic cirrhosis with ascites and history of an umbilical h ernia repair. FAMILY HISTORY: Noncontributory. SOCIAL HISTORY: He does not smoke, drink or abuse drugs. ALLERGIES: NONE TO PENICILLIN, SULFA OR FOODS. MEDICATIONS: Per chart. REVIEW OF SYSTEMS: As per HPI. PHYSICAL EXAMINATION: GENERAL: The patient is well-developed, well-nourished male who is alert, responsive, in no acute distress. VITAL SIGNS: Stable. He is afebrile. SKIN: Without generalized rash. HEENT: Within normal limits. NECK: Supple. LYMPH NODES: None palpable. CHEST: Decreased breath sounds at the bases with scattered rhonchi. HEART: Without murmur or gallop. ABDOMEN: Soft with mild tenderness. He has ____ drain, a left umbilical hernia drain. He has stapl es which are in place without surrounding erythema or induration. EXTREMITIES: Without cyanosis, clubbing or edema. RECTAL AND GENITAL: Deferred. NEUROLOGICAL: No focal neurological abnormalities. LABORATORY DATA: White count 7.4, H and H of 11 and 33.6, platelet count of 87,000. BUN and creatin ine is 19/0.65. HOSPITAL COURSE: The patient was begun on I believe ertapenem or Invanz. A CT scan of the abdomen a nd pelvis showed shrunken nodular liver representing hepatic cirrhosis with sequelae of portal hypert ension including splenomegaly and small volume ascites, diffuse hypoenhancement of the pancreatic par enchyma, likely representing sequelae of chronic pancreatitis, mild wall thickening of the stomach, d uodenum, small bowel loops of colon may relate to portal hypertension, presence of ascites. Clinical correlation is advised to rule out enterocolitis, mild peritoneal enhancement in the pelvis, it is n onspecific but may represent peritonitis, unchanged position of percutaneous pigtail catheter in the pelvis, postsurgical changes of ventral hernia repair with mesh, interval decrease in size of gas and fluid collection in the anterior abdominal wall near the site of the surgical marilyn, now measuring 1.8 x 3 cm, significant interval decrease in size of the fluid collection in the anterior abdominal wall, status post percutaneous pigtail catheter placement and mild wall thickening of the incompletel y distended urinary bladder although this could relate to incomplete distention. Correlation with ur inalysis is recommended to rule out cystitis. The patient was seen also by Dr. Cuevas and was start ed actually on Zosyn. The ertapenem was discontinued. I ordered 2 sets of blood cultures and also c ultures of both drainage. I will dictate my findings to the hospitalist. Dictated By: MAGGIE LALA MD, JD/LILY Conf#: [id number] DID#: [id number] CC: JULES ROMERO MD;*EndCC*
[2018-09-12] MEDS: HEPARIN 5,000 UNIT/1 ML VIAL SC SCH (20:37)
[2018-09-12 21:35] VITALS: BP 105/62; PULSE 74; RESP 18
[2018-09-12 21:40] VITALS: Ht 167.6 cm; Wt 65.2 kg
[2018-09-12] MEDS: PIPER-TAZO 3.375 GM IV (PMX) 100 ML IVPB SCH (22:47)
[2018-09-13 02:00] VITALS: BP 108/67; PULSE 76; RESP 18
[2018-09-13] MEDS: PIPER-TAZO 3.375 GM IV (PMX) 100 ML IVPB SCH ×3 (05:43→21:00)
[2018-09-13 08:00] VITALS: BP 102/56; PULSE 73; RESP 18
[2018-09-13] MEDS ORDERED: SOD CHLORIDE 0.9% 1,000 ML IV ONE (08:00)
[2018-09-13] MEDS: HEPARIN 5,000 UNIT/1 ML VIAL SC SCH ×2 (09:07→20:32)
--- NOTE | 2018-09-13 13:20 | CONS ---
Assessment/Plan Assessment/Plan Hospital Course (Demo Recall) Patient is alert looks comfortable no fevers overnight. WBC 9.6 neutrophils 91.8 BUN 19 creatinine 0.85 Abdominal fluid cultures growing gram-negative rods, abdominal fluid culture on previous admission on September 02 grew alphahemolytic strep species enterococcus and Acinetobacter Jonathan Indwelling's: Bilateral abdominal drainage catheters Antimicrobials: Zosyn Physical examination: Well-developed well-nourished middle-aged man who is alert in no distress. Head atraumatic normocephalic. Neck is supple. Chest rise symmetrical. Breath sounds diminished at bases. Heart: S1-S2. Abdomen soft, bowel tones present, mid abdominal marilyn clean dry and intact, patient has bilateral accordion drains on each side of the abdomen Assessment: 1. Ongoing SBP 2. Status post strangulated hernia repair 3. Anemia 4. Alcoholism with decompensated alcoholic cirrhosis Plan: Stable, continue antibiotics and await for final cultures Consultation Date/Type/Reason Admit Date/Time Sep 12, 2018 at 14:57 Initial Consult Date Type of Consult id Date/Time of Note DATE: 09/13/18 TIME: 13:16 Exam/Review of Systems Exam Vitals Vital Signs Date Temp Pulse Resp B/P (MAP) Pulse Ox O2 O2 Flow FiO2 Time Delivery Rate 09/13/18 98.6 73 18 102/56 96 08:00 (71) 09/12/18 Room Air 21:12 Intake and Output 09/12/18 09/12/18 09/13/18 1515:00 23:00 07:00 IntakeIntake Total 320 ml OutputOutput Total 1160 ml BalanceBalance -840 ml Results Result Diagram: 09/13/18 0611 09/13/18 0611 Results 24hrs Laboratory Tests Test 09/12/18 14:47 09/13/18 06:11 Body Fluid Type ABDOMINAL Body Fluid Volume 20.0 Body Fluid Color YELLOW Body Fluid Appearance CLOUDY Body Fluid WBC 107 Body Fluid RBC (Auto) 1000 Body Fluid Polynuclear WBCs (%) 8.4 Body Fluid Mononuclear Cells % Auto 91.6 White Blood Count 9.6 # Red Blood Count 3.81 L Hemoglobin 10.6 L Hematocrit 32.1 L Mean Corpuscular Volume 84.3 Mean Corpuscular Hemoglobin 27.8 L Mean Corpuscular Hemoglobin Concent 33.0 Red Cell Distribution Width 15.7 H Platelet Count 95 L Mean Platelet Volume 9.2 Immature Granulocytes % 1.100 H Neutrophils % 91.8 H Lymphocytes % 1.9 L Monocytes % 3.1 Eosinophils % 1.6 Basophils % 0.5 Nucleated Red Blood Cells % 0.0 Immature Granulocytes # 0.110 H Neutrophils # 8.8 H Lymphocytes # 0.2 L Monocytes # 0.3 Eosinophils # 0.2 Basophils # 0.1 Nucleated Red Blood Cells # 0.0 Sodium Level 129 L Potassium Level 6.0 H Chloride Level 107 Carbon Dioxide Level 17 L Anion Gap 5 Blood Urea Nitrogen 19 Creatinine 0.85 Est Glomerular Filtrat Rate mL/min > 60 Glucose Level 95 Hemoglobin A1c 5.6 Calcium Level 8.1 L Total Bilirubin 0.6 Direct Bilirubin 0.00 Indirect Bilirubin 0.6 Aspartate Amino Transf (AST/SGOT) 65 H Alanine Aminotransferase (ALT/SGPT) 42 Alkaline Phosphatase 215 H Total Protein 5.3 L Albumin 2.3 L Globulin 3.00 Albumin/Globulin Ratio 0.76 Medications Medication Current Medications Piperacillin Sod/ Tazobactam Sod 100 ml @ 200 mls/hr Q8 IVPB Last administered on 09/13/18at 05:43; Admin Dose 200 MLS/HR; Start 09/12/18 at 22:00 IV Flush (NS 3 ml) 3 ml PER PROTOCOL IV Last administered on 09/13/18at 02:01; Admin Dose 3 ML; Start 09/12/18 at 16:00 Acetaminophen/ Hydrocodone Bitart (Herman (5/325)) 2 tab Q6H PRN PO .SEVERE PAIN 7-10; Start 09/12/18 at 16:00 Heparin Sodium (Porcine) (Heparin (5000 Units/1ml)) 5,000 unit Q12 SC Last administered on 09/13/18at 09:07; Admin Dose 5,000 UNIT; Start 09/12/18 at 21:00 ANKUR BEST NP Sep 13, 2018 13:20
[2018-09-13 14:00] VITALS: BP 106/58; PULSE 80; RESP 20
--- NOTE | 2018-09-13 15:28 | PN ---
Date/Time of Note Date/Time of Note DATE: 09/13/18 TIME: 15:26 Assessment/Plan VTE Prophylaxis Risk score (from Ns)>0 risk: 1 SCD applied (from Ns): Yes Pharmacological prophylaxis: heparin Lines/Catheters IV Catheter Type (from Nrs): Peripheral IV Assessment/Plan Hospital Course 52 yo male with h/o cirrhosis, recent umbilical hernia repair complicated by infection and fluid collection for which drains were placed. Now returns with purulent drainage from the drain. Imaging showing no discrete fluid collection but likely peritonitis Peritnoitis, 2/2 catheter in the belly: - Seems like catheters should be removed, but I defer to Dr Anderson - Continue zosyadilia, cultures show sensitive bugs. ID on board - repeat cultures Hyponatremia: - FW restriction - Check urine studies DOMINIQUE with hyperkalemia: - IV NS bolus Cirrhosis: - stable - hold diuretics while infected Result Diagram: 09/13/18 0611 09/13/18 0611 Results 24hrs Laboratory Tests Test 09/13/18 06:11 White Blood Count 9.6 # Red Blood Count 3.81 L Hemoglobin 10.6 L Hematocrit 32.1 L Mean Corpuscular Volume 84.3 Mean Corpuscular Hemoglobin 27.8 L Mean Corpuscular Hemoglobin Concent 33.0 Red Cell Distribution Width 15.7 H Platelet Count 95 L Mean Platelet Volume 9.2 Immature Granulocytes % 1.100 H Neutrophils % 91.8 H Lymphocytes % 1.9 L Monocytes % 3.1 Eosinophils % 1.6 Basophils % 0.5 Nucleated Red Blood Cells % 0.0 Immature Granulocytes # 0.110 H Neutrophils # 8.8 H Lymphocytes # 0.2 L Monocytes # 0.3 Eosinophils # 0.2 Basophils # 0.1 Nucleated Red Blood Cells # 0.0 Sodium Level 129 L Potassium Level 6.0 H Chloride Level 107 Carbon Dioxide Level 17 L Anion Gap 5 Blood Urea Nitrogen 19 Creatinine 0.85 Est Glomerular Filtrat Rate mL/min > 60 Glucose Level 95 Hemoglobin A1c 5.6 Calcium Level 8.1 L Total Bilirubin 0.6 Direct Bilirubin 0.00 Indirect Bilirubin 0.6 Aspartate Amino Transf (AST/SGOT) 65 H Alanine Aminotransferase (ALT/SGPT) 42 Alkaline Phosphatase 215 H Total Protein 5.3 L Albumin 2.3 L Globulin 3.00 Albumin/Globulin Ratio 0.76 Subjective 24 Hr Interval Summary Free Text/Dictation Pain is improving Fluid from R drain is less milkly, now yellow and a bit less opaque Exam/Review of Systems Exam Vitals Vital Signs Date Temp Pulse Resp B/P (MAP) Pulse Ox O2 O2 Flow FiO2 Time Delivery Rate 09/13/18 97.8 80 20 106/58 94 14:00 (74) 09/12/18 Room Air 21:12 Intake and Output 09/12/18 09/12/18 09/13/18 1515:00 23:00 07:00 IntakeIntake Total 320 ml OutputOutput Total 1160 ml BalanceBalance -840 ml Exam Well apperaing no disterss AO3 Belly is soft nt nd. R drain with yellow opaque fluid. L drain wiht sanginous fluid Results Results 24hrs Laboratory Tests Test 09/13/18 06:11 White Blood Count 9.6 # Red Blood Count 3.81 L Hemoglobin 10.6 L Hematocrit 32.1 L Mean Corpuscular Volume 84.3 Mean Corpuscular Hemoglobin 27.8 L Mean Corpuscular Hemoglobin Concent 33.0 Red Cell Distribution Width 15.7 H Platelet Count 95 L Mean Platelet Volume 9.2 Immature Granulocytes % 1.100 H Neutrophils % 91.8 H Lymphocytes % 1.9 L Monocytes % 3.1 Eosinophils % 1.6 Basophils % 0.5 Nucleated Red Blood Cells % 0.0 Immature Granulocytes # 0.110 H Neutrophils # 8.8 H Lymphocytes # 0.2 L Monocytes # 0.3 Eosinophils # 0.2 Basophils # 0.1 Nucleated Red Blood Cells # 0.0 Sodium Level 129 L Potassium Level 6.0 H Chloride Level 107 Carbon Dioxide Level 17 L Anion Gap 5 Blood Urea Nitrogen 19 Creatinine 0.85 Est Glomerular Filtrat Rate mL/min > 60 Glucose Level 95 Hemoglobin A1c 5.6 Calcium Level 8.1 L Total Bilirubin 0.6 Direct Bilirubin 0.00 Indirect Bilirubin 0.6 Aspartate Amino Transf (AST/SGOT) 65 H Alanine Aminotransferase (ALT/SGPT) 42 Alkaline Phosphatase 215 H Total Protein 5.3 L Albumin 2.3 L Globulin 3.00 Albumin/Globulin Ratio 0.76 Medications Medication Current Medications Piperacillin Sod/ Tazobactam Sod 100 ml @ 200 mls/hr Q8 IVPB Last administered on 09/13/18at 13:27; Admin Dose 200 MLS/HR; Start 09/12/18 at 22:00 IV Flush (NS 3 ml) 3 ml PER PROTOCOL IV Last administered on 09/13/18at 02:01; Admin Dose 3 ML; Start 09/12/18 at 16:00 Acetaminophen/ Hydrocodone Bitart ([place] (5/325)) 2 tab Q6H PRN PO .SEVERE PAIN 7-10; Start 09/12/18 at 16:00 Heparin Sodium (Porcine) (Heparin (5000 Units/1ml)) 5,000 unit Q12 SC Last administered on 09/13/18at 09:07; Admin Dose 5,000 UNIT; Start 09/12/18 at 21:00 ANDREIA GRAMAJO MD Sep 13, 2018 15:28
[2018-09-13 20:29] VITALS: BP 90/58; PULSE 80; RESP 18
[2018-09-13] MEDS ORDERED: SOD CHLORIDE 0.9% 500 ML IV ONE (21:30)
[2018-09-14 02:07] VITALS: BP 89/54; PULSE 63; RESP 18
[2018-09-14 02:17] VITALS: BP 95/58; PULSE 60
[2018-09-14] MEDS: HYDROCODONE/APAP (5/325) TAB PO PRN ×3 (03:44→21:15)
[2018-09-14] MEDS: ONDANSETRON 4 MG INJ IV PRN (05:16)
[2018-09-14] MEDS: PIPER-TAZO 3.375 GM IV (PMX) 100 ML IVPB SCH ×3 (05:16→21:15)
[2018-09-14 08:34] VITALS: BP 109/61; PULSE 65; RESP 17
[2018-09-14] MEDS: HEPARIN 5,000 UNIT/1 ML VIAL SC SCH ×2 (09:25→21:16)
--- NOTE | 2018-09-14 13:05 | CONS ---
Consultation Date/Type/Reason Admit Date/Time Sep 12, 2018 at 14:57 Initial Consult Date SUBJECTIVE: Patient is awake, alert , afebrile, looks comfortable VS: stable T: 97.9 LABS: Reviewed. WBC-5.8 Abdominal fluid cultures growing gram-negative rods, abdominal fluid culture on previous admission on September 02 grew alphahemolytic strep species enterococcus and Acinetobacter Jonathan CT of ABDOMEN 09/12/18: IMPRESSION: 1. Shrunken nodular liver representing hepatic cirrhosis with sequela of portal hypertension including splenomegaly and small volume ascites. 2. Diffuse hypoenhancement of the pancreatic parenchyma likely representing sequela of chronic pancreatitis. 3. Mild wall thickening of the stomach, duodenum, small bowel loops, and the colon may relate to portal hypertension and presence of ascites. Clinical correlation is advised to rule out enterocolitis. 4. Mild peritoneal enhancement in the pelvis is nonspecific but may represent peritonitis. 5. Unchanged position of a percutaneous pigtail catheter in the pelvis. 6. Postsurgical changes of ventral hernia repair with mesh. Interval decrease in size of the a gas and fluid collection in the anterior abdominal wall near the site of surgical marilyn now measuring 1.8 x 3 cm. 7. Significant interval decrease in size of a second fluid collection in the anterior abdominal wall status post percutaneous pigtail catheter placement. 8. Mild wall thickening of the incompletely distended urinary bladder. Although this could relate to incomplete distension, correlation with urinalysis is recommended to rule out cystitis. Indwelling's: Bilateral abdominal drainage catheters Antimicrobials: Zosyn Physical examination: GEN: Well-developed well-nourished middle-aged man who is alert in no distress. HENT:Head atraumatic normocephalic. Neck is supple. PULM: Chest rise symmetrical. Breath sounds diminished at bases. Heart: S1-S2. Abdomen soft, bowel tones present, mid abdominal marilyn clean dry and intact, patient has bilateral accordion drains on each side of the abdomen Assessment: 1. Ongoing SBP 2. Status post strangulated hernia repair 3. Anemia 4. Alcoholism with decompensated alcoholic cirrhosis 5. Possible peritonitis per CT Plan: Pt is stable. Continue current antibiotics and await for final cultures. Pt is responding well to current therapy. No fevers, WBC is WNL. CT of abd noted. Date/Time of Note DATE: 09/14/18 TIME: 13:01 Exam/Review of Systems Exam Vitals Vital Signs Date Temp Pulse Resp B/P (MAP) Pulse Ox O2 O2 Flow FiO2 Time Delivery Rate 09/14/18 97.9 65 17 109/61 99 Room Air 08:34 (77) Intake and Output 09/13/18 09/13/18 09/14/18 1515:00 23:00 07:00 IntakeIntake Total 1920 ml 950 ml 1100 ml OutputOutput Total 350 ml 1200 ml 600 ml BalanceBalance 1570 ml -250 ml 500 ml Results Result Diagram: 09/14/18 0536 09/14/18 0536 Results 24hrs Laboratory Tests Test 09/13/18 20:15 09/14/18 05:36 Sodium Level 128 L 130 L Potassium Level 4.4 4.9 Chloride Level 101 105 Carbon Dioxide Level 20 L 17 L Anion Gap 7 8 Blood Urea Nitrogen 24 H 22 H Creatinine 0.94 0.79 Est Glomerular Filtrat Rate mL/min > 60 > 60 Glucose Level 115 89 Calcium Level 7.5 L 7.6 L White Blood Count 5.8 # Red Blood Count 3.66 L Hemoglobin 10.2 L Hematocrit 30.6 L Mean Corpuscular Volume 83.6 Mean Corpuscular Hemoglobin 27.9 L Mean Corpuscular Hemoglobin Concent 33.3 Red Cell Distribution Width 16.0 H Platelet Count 93 L Mean Platelet Volume 9.9 Immature Granulocytes % 1.000 H Neutrophils % 57.8 Lymphocytes % 17.4 Monocytes % 13.6 H Eosinophils % 9.2 H Basophils % 1.0 Nucleated Red Blood Cells % 0.0 Immature Granulocytes # 0.060 H Neutrophils # 3.3 Lymphocytes # 1.0 Monocytes # 0.8 Eosinophils # 0.5 Basophils # 0.1 Nucleated Red Blood Cells # 0.0 Medications Medication Current Medications Piperacillin Sod/ Tazobactam Sod 100 ml @ 200 mls/hr Q8 IVPB Last administered on 09/14/18at 05:16; Admin Dose 200 MLS/HR; Start 09/12/18 at 22:00 IV Flush (NS 3 ml) 3 ml PER PROTOCOL IV Last administered on 09/13/18at 02:01; Admin Dose 3 ML; Start 09/12/18 at 16:00 Acetaminophen/ Hydrocodone Bitart ([place] (5/325)) 2 tab Q6H PRN PO .SEVERE PAIN 7-10 Last administered on 09/14/18at 03:44; Admin Dose 2 TAB; Start 09/12/18 at 16:00 Heparin Sodium (Porcine) (Heparin (5000 Units/1ml)) 5,000 unit Q12 SC Last administered on 09/14/18at 09:25; Admin Dose 5,000 UNIT; Start 09/12/18 at 21:00 Ondansetron HCl (Zofran Inj) 4 mg Q4H PRN IV NAUSEA AND/OR VOMITING Last administered on 09/14/18at 05:16; Admin Dose 4 MG; Start 09/14/18 at 05:00 JASON MORENO Sep 14, 2018 13:05
[2018-09-14 14:00] VITALS: BP 98/66; PULSE 81; RESP 17
--- NOTE | 2018-09-14 14:10 | CONS ---
Assessment/Plan Assessment/Plan Assessment/Plan (Daily) SBP Remove both drains as they may be a source of SBP. Concerned that the ascites will now accumulate and possibly drain through the wound once again. Suture placed through right lower quadrant drain to prevent ascites leak Consultation Date/Type/Reason Admit Date/Time Sep 12, 2018 at 14:57 Date/Time of Note DATE: 09/14/18 TIME: 14:06 Hx of Present Illness The patient is a 52-year-old male well-known to me from a small bowel obstruction secondary to an umbilical hernia. Patient is a known cirrhotic with multiple paracenteses weekly. Patient recovered well but developed complications from his persistent ascites. His ascites started leaking through his abdominal wound and a drain was placed to control his ascites. He has not followed up with me at all since surgery. He now presents to the ER with cloudy peritoneal fluid. He has subjective fever. No nausea, vomiting or diarrhea. No complaints of general malaise. The patient was on amoxicillin and Levaquin at home. I was asked to remove the drains as this may be cause for his recurrent SBP. Past Medical History Medical History: other (Cirrhosis secondary to alcohol) Home Meds Discontinued Reported Medications Pantoprazole* (Pantoprazole*) 40 Mg Tablet.dr, 40 MG PO AC BREAKFAST, TAB 07/23/18 Discontinued Scripts Amoxicillin* (Amoxil*) 500 Mg Tablet, 500 MG PO Q8 for 10 Days, #30 TAB Prov:CALE MONTERROSO [employer] 09/05/18 Levofloxacin* (Levofloxacin*) 500 Mg Tablet, 500 MG PO DAILY for 10 Days, #10 TAB Prov:CALE MONTERROSO [employer]LYST 09/05/18 Medications Current Medications Piperacillin Sod/ Tazobactam Sod 100 ml @ 200 mls/hr Q8 IVPB Last administered on 09/14/18at 05:16; Admin Dose 200 MLS/HR; Start 09/12/18 at 22:00 IV Flush (NS 3 ml) 3 ml PER PROTOCOL IV Last administered on 09/13/18at 02:01; Admin Dose 3 ML; Start 09/12/18 at 16:00 Acetaminophen/ Hydrocodone Bitart ([place] (5/325)) 2 tab Q6H PRN PO .SEVERE PAIN 7-10 Last administered on 09/14/18at 03:44; Admin Dose 2 TAB; Start 09/12/18 at 16:00 Heparin Sodium (Porcine) (Heparin (5000 Units/1ml)) 5,000 unit Q12 SC Last administered on 09/14/18at 09:25; Admin Dose 5,000 UNIT; Start 09/12/18 at 21:00 Ondansetron HCl (Zofran Inj) 4 mg Q4H PRN IV NAUSEA AND/OR VOMITING Last administered on 09/14/18at 05:16; Admin Dose 4 MG; Start 09/14/18 at 05:00 Allergies: Coded Allergies: No Known Allergy (Unverified , 09/12/18) Past Surgical History Past Surgical Hx: other Social History Alcohol Use: none Smoking Status: Never smoker Drug Use: none Exam/Review of Systems Exam Vitals Vital Signs Date Temp Pulse Resp B/P (MAP) Pulse Ox O2 O2 Flow FiO2 Time Delivery Rate 09/14/18 97.9 65 17 109/61 99 Room Air 08:34 (77) Intake and Output 09/13/18 09/13/18 09/14/18 1515:00 23:00 07:00 IntakeIntake Total 1920 ml 950 ml 1100 ml OutputOutput Total 350 ml 1200 ml 600 ml BalanceBalance 1570 ml -250 ml 500 ml Constitutional: alert, oriented, well developed Eyes: EOMI ENMT: nl external ears & nose Neck: supple Cardiovascular: regular rate and rhythm Gastrointestinal: soft, other (Mildly distended, some slight abdominal tenderness) Results Result Diagram: 09/14/18 0536 09/14/18 0536 Results 24hrs Laboratory Tests Test 09/13/18 20:15 09/14/18 05:36 Sodium Level 128 L 130 L Potassium Level 4.4 4.9 Chloride Level 101 105 Carbon Dioxide Level 20 L 17 L Anion Gap 7 8 Blood Urea Nitrogen 24 H 22 H Creatinine 0.94 0.79 Est Glomerular Filtrat Rate mL/min > 60 > 60 Glucose Level 115 89 Calcium Level 7.5 L 7.6 L White Blood Count 5.8 # Red Blood Count 3.66 L Hemoglobin 10.2 L Hematocrit 30.6 L Mean Corpuscular Volume 83.6 Mean Corpuscular Hemoglobin 27.9 L Mean Corpuscular Hemoglobin Concent 33.3 Red Cell Distribution Width 16.0 H Platelet Count 93 L Mean Platelet Volume 9.9 Immature Granulocytes % 1.000 H Neutrophils % 57.8 Lymphocytes % 17.4 Monocytes % 13.6 H Eosinophils % 9.2 H Basophils % 1.0 Nucleated Red Blood Cells % 0.0 Immature Granulocytes # 0.060 H Neutrophils # 3.3 Lymphocytes # 1.0 Monocytes # 0.8 Eosinophils # 0.5 Basophils # 0.1 Nucleated Red Blood Cells # 0.0 Imaging Imaging Patient: OSVALDO SUH : 1965 Age: 52 Sex: M MR #: [id number] DOS: 09/12/18 1023 Ordering MD: DAYTON DUMAS DO Location: E/R Room/Bed: PROCEDURE: CT Abdomen and Pelvis with contrast CLINICAL INDICATION: Abdominal pain, status post hernia repair TECHNIQUE: Transaxial computed tomographic images of the abdomen and pelvis were obtained following the uneventful administration of 90 mL Omnipaque-300 intravenous contrast according to standard protocol. Coronal and sagittal reformatted images were provided. DICOM images are available. Radiation dose: CTDIvol (mGy) = 10.14; total DLP (mGy.cm) = 610.64. One or more of the following dose reduction techniques were used: - Automated exposure control. - Adjustment of the mA and/or kV according to patient size. - Use of iterative reconstruction technique. COMPARISON: 09/02/2018. FINDINGS: The visualized lung bases are clear. There is no pleural effusion. There is bilateral gynecomastia. The liver is shrunken with nodular surface and hypertrophy of the left lateral segment and caudate lobe representing hepatic cirrhosis. No focal hepatic lesion is identified. There is no intrahepatic or extrahepatic biliary ductal dilatation. The gallbladder is distended. No gallstones are seen. There are enlarged perigastric varices representing sequela of portal hypertension. The spleen is enlarged measuring 13.6 cm cranial caudally and enhances homogeneously. The pancreas demonstrates hypoenhancement diffusely without pancreatic ductal dilatation or discrete fluid collection. The adrenal glands are normal. The kidneys enhance symmetrically without hydronephrosis or nephrolithiasis. Subcentimeter hypoattenuating lesions in both kidneys are too small to characterize but likely represent cysts. gallbladder, spleen, pancreas, adrenal glands, and kidneys are normal. The stomach is distended with ingested content. There is mild wall thickening of the stomach and duodenum. There is no evidence of intestinal obstruction. The appendix is not enlarged. There is mild wall thickening of the appendix which is decreased since the prior examination. There is no free intraperitoneal air. Small volume ascites is identified in the abdomen and pelvis. There is mild peritoneal enhancement in the pelvis. A percutaneous pigtail catheter enters the right anterior abdomen with the tip in the right pelvis. There is no suspicious mesenteric or retroperitoneal lymphadenopathy. The abdominal aorta is atherosclerotic but of normal diameter. There are postsurgical changes of ventral abdominal hernia mesh repair.A 1.8 x 3 cm fluid collection in the anterior abdominal wall with thickened rim and nondependent locules of gas is decreased in size from 3.5 x 5 cm respectively on the prior exam (series 3 image 113). A percutaneous pigtail catheter in the anterior abdominal wall in a second previously described fluid collection is identified. The fluid collection is significantly decreased in size with residual fluid measuring 4 cm transverse by 1.2 cm AP (series 3 image 101), previously measuring 9.9 cm transverse by 5 cm AP. Surgical marilyn are identified in the ventral abdomen near these fluid collections. Urinary bladder is nondistended and demonstrates mild diffuse wall thickening. The prostate is present. The osseous structures of the abdomen and pelvis are intact. IMPRESSION: 1. Shrunken nodular liver representing hepatic cirrhosis with sequela of portal hypertension including splenomegaly and small volume ascites. 2. Diffuse hypoenhancement of the pancreatic parenchyma likely representing sequela of chronic pancreatitis. 3. Mild wall thickening of the stomach, duodenum, small bowel loops, and the colon may relate to portal hypertension and presence of ascites. Clinical correlation is advised to rule out enterocolitis. 4. Mild peritoneal enhancement in the pelvis is nonspecific but may represent peritonitis. 5. Unchanged position of a percutaneous pigtail catheter in the pelvis. 6. Postsurgical changes of ventral hernia repair with mesh. Interval decrease in size of the a gas and fluid collection in the anterior abdominal wall near the site of surgical marilyn now measuring 1.8 x 3 cm. 7. Significant interval decrease in size of a second fluid collection in the anterior abdominal wall status post percutaneous pigtail catheter placement. 8. Mild wall thickening of the incompletely distended urinary bladder. Although this could relate to incomplete distension, correlation with urinalysis is recommended to rule out cystitis. RPTAT: AAEE Qi Land Physician Date Time Electronically viewed and signed by Qi Land Physician on 09/12/2018 11: 50 Medications Medication Current Medications Piperacillin Sod/ Tazobactam Sod 100 ml @ 200 mls/hr Q8 IVPB Last administered on 09/14/18 05:16; Admin Dose 200 MLS/HR; Start 09/12/18 at 22:00 IV Flush (NS 3 ml) 3 ml PER PROTOCOL IV Last administered on 09/13/18 02:01; Admin Dose 3 ML; Start 09/12/18 at 16:00 Acetaminophen/ Hydrocodone Bitart ([place] (5/325)) 2 tab Q6H PRN PO .SEVERE PAIN 7-10 Last administered on 09/14/18 03:44; Admin Dose 2 TAB; Start 09/12/18 at 16:00 Heparin Sodium (Porcine) (Heparin (5000 Units/1ml)) 5,000 unit Q12 SC Last administered on 09/14/18 09:25; Admin Dose 5,000 UNIT; Start 09/12/18 at 21:00 Ondansetron HCl (Zofran Inj) 4 mg Q4H PRN IV NAUSEA AND/OR VOMITING Last administered on 09/14/18 05:16; Admin Dose 4 MG; Start 09/14/18 at 05:00 MARY RAMIREZ MD Sep 14, 2018 14:10
--- NOTE | 2018-09-14 15:03 | PN ---
Date/Time of Note Date/Time of Note DATE: 09/14/18 TIME: 15:02 Assessment/Plan VTE Prophylaxis Risk score (from Ns)>0 risk: 2 SCD applied (from Ns): Yes Pharmacological prophylaxis: heparin Lines/Catheters IV Catheter Type (from Nrs): [place] Urinary Cath still in place: No Assessment/Plan Hospital Course 52 yo male with h/o cirrhosis, recent umbilical hernia repair complicated by infection and fluid collection for which drains were placed. Now returns with purulent drainage from the drain. Imaging showing no discrete fluid collection but likely peritonitis Peritonitis, 2/2 catheter in the belly: - Cathers removed - Continue zosyn, cultures show sensitive bugs. ID on board Hyponatremia: - FW restriction DOMINIQUE with hyperkalemia: - resolved Cirrhosis: - stable - resume diuretics when stable Result Diagram: 09/14/1836 09/14/18 0536 Results 24hrs Laboratory Tests Test 09/13/18 20:15 09/14/18 05:36 Sodium Level 128 L 130 L Potassium Level 4.4 4.9 Chloride Level 101 105 Carbon Dioxide Level 20 L 17 L Anion Gap 7 8 Blood Urea Nitrogen 24 H 22 H Creatinine 0.94 0.79 Est Glomerular Filtrat Rate mL/min > 60 > 60 Glucose Level 115 89 Calcium Level 7.5 L 7.6 L White Blood Count 5.8 # Red Blood Count 3.66 L Hemoglobin 10.2 L Hematocrit 30.6 L Mean Corpuscular Volume 83.6 Mean Corpuscular Hemoglobin 27.9 L Mean Corpuscular Hemoglobin Concent 33.3 Red Cell Distribution Width 16.0 H Platelet Count 93 L Mean Platelet Volume 9.9 Immature Granulocytes % 1.000 H Neutrophils % 57.8 Lymphocytes % 17.4 Monocytes % 13.6 H Eosinophils % 9.2 H Basophils % 1.0 Nucleated Red Blood Cells % 0.0 Immature Granulocytes # 0.060 H Neutrophils # 3.3 Lymphocytes # 1.0 Monocytes # 0.8 Eosinophils # 0.5 Basophils # 0.1 Nucleated Red Blood Cells # 0.0 Subjective 24 Hr Interval Summary Free Text/Dictation Doing well Pain absent Drains removed by Dr Anderson Exam/Review of Systems Exam Vitals Vital Signs Date Temp Pulse Resp B/P (MAP) Pulse Ox O2 O2 Flow FiO2 Time Delivery Rate 09/14/18 97.9 65 17 109/61 99 Room Air 08:34 (77) Intake and Output 09/13/18 09/13/18 09/14/18 1515:00 23:00 07:00 IntakeIntake Total 1920 ml 950 ml 1100 ml OutputOutput Total 350 ml 1200 ml 600 ml BalanceBalance 1570 ml -250 ml 500 ml Constitutional: alert, oriented, well developed Psych: no complaints, nl mood/affect Head: normocephalic, atraumatic Eyes: nl conjunctiva, EOMI, nl lids, nl sclera, PERRL ENMT: nl external ears & nose, nl lips & teeth, nl nasal mucosa & septum Neck: supple, non-tender Respiratory: clear to auscultation, normal air movement Cardiovascular: regular rate and rhythm, nl pulses Gastrointestinal: soft, nl liver, spleen, non-tender Musculoskeletal: nl extremities to inspection, nl gait and stance Extremities: normal pulses Neurological: TAKE AWAY ATTENDANT II-XII intact, nl mental status, nl speech, nl strength Skin: nl turgor; No rash or lesions Lymph: nl lymph nodes Results Results 24hrs Laboratory Tests Test 09/13/18 20:15 09/14/18 05:36 Sodium Level 128 L 130 L Potassium Level 4.4 4.9 Chloride Level 101 105 Carbon Dioxide Level 20 L 17 L Anion Gap 7 8 Blood Urea Nitrogen 24 H 22 H Creatinine 0.94 0.79 Est Glomerular Filtrat Rate mL/min > 60 > 60 Glucose Level 115 89 Calcium Level 7.5 L 7.6 L White Blood Count 5.8 # Red Blood Count 3.66 L Hemoglobin 10.2 L Hematocrit 30.6 L Mean Corpuscular Volume 83.6 Mean Corpuscular Hemoglobin 27.9 L Mean Corpuscular Hemoglobin Concent 33.3 Red Cell Distribution Width 16.0 H Platelet Count 93 L Mean Platelet Volume 9.9 Immature Granulocytes % 1.000 H Neutrophils % 57.8 Lymphocytes % 17.4 Monocytes % 13.6 H Eosinophils % 9.2 H Basophils % 1.0 Nucleated Red Blood Cells % 0.0 Immature Granulocytes # 0.060 H Neutrophils # 3.3 Lymphocytes # 1.0 Monocytes # 0.8 Eosinophils # 0.5 Basophils # 0.1 Nucleated Red Blood Cells # 0.0 Medications Medication Current Medications Piperacillin Sod/ Tazobactam Sod 100 ml @ 200 mls/hr Q8 IVPB Last administered on 09/14/18 14:33; Admin Dose 200 MLS/HR; Start 09/12/18 at 22:00 IV Flush (NS 3 ml) 3 ml PER PROTOCOL IV Last administered on 09/13/18 02:01; Admin Dose 3 ML; Start 09/12/18 at 16:00 Acetaminophen/ Hydrocodone Bitart ([place] (5/325)) 2 tab Q6H PRN PO .SEVERE PAIN 7-10 Last administered on 09/14/18 14:34; Admin Dose 2 TAB; Start 09/12/18 at 16:00 Heparin Sodium (Porcine) (Heparin (5000 Units/1ml)) 5,000 unit Q12 SC Last ad ministered on 09/14/18 09:25; Admin Dose 5,000 UNIT; Start 09/12/18 at 21:00 Ondansetron HCl (Zofran Inj) 4 mg Q4H PRN IV NAUSEA AND/OR VOMITING Last administered on 09/14/18 05:16; Admin Dose 4 MG; Start 09/14/18 at 05:00 ANDREIA GRAMAJO MD Sep 14, 2018 15:03
[2018-09-14 20:45] VITALS: BP 96/62; PULSE 79; RESP 18
[2018-09-15 02:33] VITALS: BP 98/58; PULSE 74; RESP 18
[2018-09-15] MEDS: HYDROCODONE/APAP (5/325) TAB PO PRN ×2 (03:59→11:36)
[2018-09-15] MEDS: PIPER-TAZO 3.375 GM IV (PMX) 100 ML IVPB SCH (05:14)
[2018-09-15 08:10] VITALS: BP 115/61; PULSE 73; RESP 17
[2018-09-15] MEDS: HEPARIN 5,000 UNIT/1 ML VIAL SC SCH ×2 (08:51→21:06)
[2018-09-15] MEDS: ONDANSETRON 4 MG INJ IV PRN (08:55)
[2018-09-15] MEDS: SPIRONOLACTONE 50 MG TAB PO SCH (11:29)
[2018-09-15] MEDS: FUROSEMIDE 20 MG TAB PO SCH ×2 (11:29→17:37)
--- NOTE | 2018-09-15 12:35 | CONS ---
Consultation Date/Type/Reason Admit Date/Time Sep 12, 2018 at 14:57 Initial Consult Date SUBJECTIVE: Patient is awake, alert , afebrile, looks comfortable VS: stable T: 97.9 LABS: Reviewed. MICROBIOLOGY: Abdominal fluid cultures growing gram-negative rods, abdominal fluid culture on previous admission on September 02 grew alphahemolytic strep spe cies enterococcus and Acinetobacter Jonathan BLOOD CULTURE Preliminary NO GROWTH AFTER [address] of ABDOMEN 09/12/18: IMPRESSION: 1. Shrunken nodular liver representing hepatic cirrhosis with sequela of portal hypertension including splenomegaly and small volume ascites. 2. Diffuse hypoenhancement of the pancreatic parenchyma likely representing sequela of chronic pancreatitis. 3. Mild wall thickening of the stomach, duodenum, small bowel loops, and the colon may relate to portal hypertension and presence of ascites. Clinical correlation is advised to rule out enterocolitis. 4. Mild peritoneal enhancement in the pelvis is nonspecific but may represent peritonitis. 5. Unchanged position of a percutaneous pigtail catheter in the pelvis. 6. Postsurgical changes of ventral hernia repair with mesh. Interval decrease in size of the a gas and fluid collection in the anterior abdominal wall near the site of surgical marilyn now measuring 1.8 x 3 cm. 7. Significant interval decrease in size of a second fluid collection in the anterior abdominal wall status post percutaneous pigtail catheter placement. 8. Mild wall thickening of the incompletely distended urinary bladder. Although this could relate to incomplete distension, correlation with urinalysis is recommended to rule out cystitis. Indwelling's: Bilateral abdominal drainage catheters Antimicrobials: Zosyn Physical examination: GEN: Well-developed well-nourished middle-aged man who is alert in no distress. HENT:Head atraumatic normocephalic. Neck is supple. PULM: Chest rise symmetrical. Breath sounds diminished at bases. Heart: S1-S2. Abdomen soft, bowel tones present, mid abdominal marilyn clean dry and intact, patient has bilateral accordion drains on each side of the abdomen Assessment: 1. Ongoing SBP 2. Status post strangulated hernia repair 3. Anemia 4. Alcoholism with decompensated alcoholic cirrhosis 5. Possible peritonitis per CT Plan: Pt is stable. Continue current antibiotics and await for final cultures. Pt is responding well to current therapy. Date/Time of Note DATE: 09/15/18 TIME: 12:33 Exam/Review of Systems Exam Vitals Vital Signs Date Temp Pulse Resp B/P (MAP) Pulse Ox O2 O2 Flow FiO2 Time Delivery Rate 09/15/18 97.9 73 17 115/61 98 Room Air 08:10 (79) Intake and Output 09/14/18 09/14/18 09/15/18 1414:59 22:59 06:59 IntakeIntake Total 900 ml 800 ml 1300 ml OutputOutput Total 0 ml BalanceBalance 900 ml 800 ml 1300 ml Results Result Diagram: 09/14/18 0536 09/15/18 0602 Results 24hrs Laboratory Tests Test 09/15/18 06:02 Sodium Level 128 L Potassium Level 5.0 Chloride Level 102 Carbon Dioxide Level 19 L Anion Gap 7 Blood Urea Nitrogen 23 H Creatinine 0.70 Est Glomerular Filtrat Rate mL/min > 60 Glucose Level 102 Calcium Level 7.6 L Medications Medication Current Medications Piperacillin Sod/ Tazobactam Sod 100 ml @ 200 mls/hr Q8 IVPB Last administered on 09/15/18 05:14; Admin Dose 200 MLS/HR; Start 09/12/18 at 22:00 IV Flush (NS 3 ml) 3 ml PER PROTOCOL IV Last administered on 09/13/18 02:01; Admin Dose 3 ML; Start 09/12/18 at 16:00 Acetaminophen/ Hydrocodone Bitart ([place] (5/325)) 2 tab Q6H PRN PO .SEVERE PAIN 7-10 Last administered on 09/15/18 11:36; Admin Dose 2 TAB; Start 09/12/18 at 16:00 Heparin Sodium (Porcine) (Heparin (5000 Units/1ml)) 5,000 unit Q12 SC Last administered on 09/15/18 08:51; Admin Dose 5,000 UNIT; Start 09/12/18 at 21:00 Ondansetron HCl (Zofran Inj) 4 mg Q4H PRN IV NAUSEA AND/OR VOMITING Last administered on 09/15/18 08:55; Admin Dose 4 MG; Start 09/14/18 at 05:00 Furosemide (Lasix) 20 mg BID DIURETICS PO Last administered on 09/15/18 11: 29; Admin Dose 20 MG; Start 09/15/18 at 10:30 Spironolactone (Aldactone) 50 mg DAILY PO Last administered on 09/15/18 11:29; Admin Dose 50 MG; Start 09/15/18 at 10:30 JASON MORENO Sep 15, 2018 12:35
--- NOTE | 2018-09-15 14:43 | PN ---
Date/Time of Note Date/Time of Note DATE: 09/15/18 TIME: 14:41 Assessment/Plan VTE Prophylaxis Risk score (from Ns)>0 risk: 1 SCD applied (from Ns): Yes Pharmacological prophylaxis: heparin Lines/Catheters IV Catheter Type (from Nrs): Saline Lock Urinary Cath still in place: No Assessment/Plan Hospital Course 52 yo male with h/o cirrhosis, recent umbilical hernia repair complicated by infection and fluid collection for which drains were placed. Now returns with purulent drainage from the drain. Imaging showing no discrete fluid collection but likely peritonitis Peritonitis, 2/2 catheter in the belly: - Cathers removed - Dc zosyn, start PO ciprofloxacin - Ascites is re-accumulating Hyponatremia: - FW restriction DOMINIQUE with hyperkalemia: - resolved Cirrhosis: - I have restarted him on diuretics. We can consider repeat paracentesis prior to discharge Plan: Should be ready to go in coming days. We should monitor him on diuretics which I restarted today. We can consider repeat paracentesis if belly becomes distended in coming days Result Diagram: 09/14/18 0536 09/15/18 0602 Results 24hrs Laboratory Tests Test 09/15/18 06:02 Sodium Level 128 L Potassium Level 5.0 Chloride Level 102 Carbon Dioxide Level 19 L Anion Gap 7 Blood Urea Nitrogen 23 H Creatinine 0.70 Est Glomerular Filtrat Rate mL/min > 60 Glucose Level 102 Calcium Level 7.6 L Subjective 24 Hr Interval Summary Free Text/Dictation Doing well Cultures growing sensitive bugs, I changed abx to cipro Exam/Review of Systems Exam Vitals Vital Signs Date Temp Pulse Resp B/P (MAP) Pulse Ox O2 O2 Flow FiO2 Time Delivery Rate 09/15/18 97.9 73 17 115/61 98 Room Air 08:10 (79) Intake and Output 09/14/18 09/14/18 09/15/18 1515:00 23:00 07:00 IntakeIntake Total 900 ml 800 ml 1300 ml OutputOutput Total 0 ml BalanceBalance 900 ml 800 ml 1300 ml Exam Aox3 RRR CTAB Abdomen getting more distended. Drains removed. Sutures in place Results Results 24hrs Laboratory Tests Test 09/15/18 06:02 Sodium Level 128 L Potassium Level 5.0 Chloride Level 102 Carbon Dioxide Level 19 L Anion Gap 7 Blood Urea Nitrogen 23 H Creatinine 0.70 Est Glomerular Filtrat Rate mL/min > 60 Glucose Level 102 Calcium Level 7.6 L Medications Medication Current Medications Piperacillin Sod/ Tazobactam Sod 100 ml @ 200 mls/hr Q8 IVPB Last administered on 09/15/18 05:14; Admin Dose 200 MLS/HR; Start 09/12/18 at 22:00 IV Flush (NS 3 ml) 3 ml PER PROTOCOL IV Last administered on 09/13/18 02:01; Admin Dose 3 ML; Start 09/12/18 at 16:00 Acetaminophen/ Hydrocodone Bitart ([place] (5/325)) 2 tab Q6H PRN PO .SEVERE PAIN 7-10 Last administered on 09/15/18 11:36; Admin Dose 2 TAB; Start 09/12/18 at 16:00 Heparin Sodium (Porcine) (Heparin (5000 Units/1ml)) 5,000 unit Q12 SC Last administered on 09/15/18 08:51; Admin Dose 5,000 UNIT; Start 09/12/18 at 21:00 Ondansetron HCl (Zofran Inj) 4 mg Q4H PRN IV NAUSEA AND/OR VOMITING Last administered on 09/15/18 08:55; Admin Dose 4 MG; Start 09/14/18 at 05:00 Furosemide (Lasix) 20 mg BID DIURETICS PO Last administered on 09/15/18 11:29; Admin Dose 20 MG; Start 09/15/18 at 10:30 Spironolactone (Aldactone) 50 mg DAILY PO Last administered on 09/15/18 11:29; Admin Dose 50 MG; Start 09/15/18 at 10:30 ANDREIA GRAMAJO MD Sep 15, 2018 14:43
[2018-09-15] MEDS: CIPROFLOXACIN 500 MG TAB PO SCH (17:37)
[2018-09-15 20:00] VITALS: BP 115/65; PULSE 70; RESP 18
[2018-09-16 02:00] VITALS: BP 99/65; PULSE 78; RESP 18
[2018-09-16] MEDS: HYDROCODONE/APAP (5/325) TAB PO PRN (04:16)
[2018-09-16] MEDS: ONDANSETRON 4 MG INJ IV PRN ×2 (04:16→08:54)
[2018-09-16] MEDS: CIPROFLOXACIN 500 MG TAB PO SCH ×2 (05:17→18:13)
[2018-09-16] MEDS: FUROSEMIDE 20 MG TAB PO SCH ×2 (05:17→18:14)
[2018-09-16 08:21] VITALS: BP 93/54; PULSE 74; RESP 18
[2018-09-16] MEDS: SPIRONOLACTONE 50 MG TAB PO SCH (08:54)
[2018-09-16] MEDS: HEPARIN 5,000 UNIT/1 ML VIAL SC SCH ×2 (08:55→20:37)
--- NOTE | 2018-09-16 13:35 | CONS ---
Assessment/Plan Assessment/Plan Hospital Course (Demo Recall) Patient is alert looks comfortable no fevers overnight. Abdominal fluid cultures growing gram-negative rods, abdominal fluid culture on previous admission on September 02 grew alphahemolytic strep species enterococcus and Acinetobacter Indwelling's: None, status post bilateral abdominal drainage catheters being removed Antimicrobials: Cipro Physical examination: Well-developed well-nourished middle-aged man who is alert in no distress. Head atraumatic normocephalic. Neck is supple. Chest rise symmetrical. Breath sounds diminished at bases. Heart: S1-S2. Abdomen soft, bowel tones present, mid abdominal marilyn clean dry and intact, patient has bilateral accordion drains on each side of the abdomen Assessment: 1. Ongoing SBP 2. Status post strangulated hernia repair 3. Anemia 4. Alcoholism with decompensated alcoholic cirrhosis Plan: Stable, add Clindamycin to cover strep Consultation Date/Type/Reason Admit Date/Time Sep 12, 2018 at 14:57 Initial Consult Date Type of Consult id Date/Time of Note DATE: 09/16/18 TIME: 13:34 Exam/Review of Systems Exam Vitals Vital Signs Date Temp Pulse Resp B/P (MAP) Pulse Ox O2 O2 Flow FiO2 Time Delivery Rate 09/16/18 98.4 74 18 93/54 (67) 98 Room Air 08:21 Intake and Output 09/15/18 09/15/18 09/16/18 1515:00 23:00 07:00 IntakeIntake Total 800 ml 620 ml 500 ml BalanceBalance 800 ml 620 ml 500 ml Results Result Diagram: 09/14/18 0536 09/15/18 0602 Medications Medication Current Medications IV Flush (NS 3 ml) 3 ml PER PROTOCOL IV Last administered on 09/13/18at 02:01; Admin Dose 3 ML; Start 09/12/18 at 16:00 Acetaminophen/ Hydrocodone Bitart ([place] (5/325)) 2 tab Q6H PRN PO .SEVERE PAIN 7-10 Last administered on 09/16/18at 04:16; Admin Dose 2 TAB; Start 09/12/18 at 16:00 Heparin Sodium (Porcine) (Heparin (5000 Units/1ml)) 5,000 unit Q12 SC Last administered on 09/16/18at 08:55; Admin Dose 5,000 UNIT; Start 09/12/18 at 21:00 Ondansetron HCl (Zofran Inj) 4 mg Q4H PRN IV NAUSEA AND/OR VOMITING Last administered on 09/16/18 08:54; Admin Dose 4 MG; Start 09/14/18 at 05:00 Furosemide (Lasix) 20 mg BID DIURETICS PO Last administered on 09/16/18 05:17; Admin Dose 20 MG; Start 09/15/18 at 10:30 Spironolactone (Aldactone) 50 mg DAILY PO Last administered on 09/16/18 08:54; Admin Dose 50 MG; Start 09/15/18 at 10:30 Ciprofloxacin (Cipro) 500 mg BID@06,18 PO Last administered on 09/16/18 05:17; Admin Dose 500 MG; Start 09/15/18 at 18:00 ANKUR BEST NP Sep 16, 2018 13:35
[2018-09-16] MEDS: CLINDAMYCIN 150 MG CAP PO SCH ×2 (14:23→21:08)
[2018-09-16 14:45] VITALS: BP 96/52; PULSE 76; RESP 18
--- NOTE | 2018-09-16 15:20 | PN ---
Date/Time of Note Date/Time of Note DATE: 09/16/18 TIME: 15:18 Assessment/Plan VTE Prophylaxis Risk score (from Ns)>0 risk: 1 SCD applied (from Ns): Yes Pharmacological prophylaxis: NA/contraindicated Pharm contraindication: liver dx Lines/Catheters IV [facility]from [facility] Saline Lock Urinary Cath still in place: No Assessment/Plan Hospital Course 52 yo male with h/o cirrhosis, recent umbilical hernia repair complicated by infection and fluid collection for which drains were placed. Now returns with purulent drainage from the drain. Imaging showing no discrete fluid collection but likely peritonitis Peritonitis, 2/2 catheter in the belly: -Catheter removed - Dc zosyn, continue PO ciprofloxacin - Ascites is re-accumulating, will require further thoracentesis -ID following Hyponatremia secondary to cirrhosis - FW restriction DOMINIQUE with hyperkalemia: - resolved Cirrhosis: -Continue diuretics. Consider repeat paracentesis prior to discharge Plan: Anticipate DC in 1-2 days, thoracentesis prior to DC Result Diagram: 09/14/18 0536 09/15/18 0602 Subjective 24 Hr Interval Summary Constitutional: no complaints Exam/Review of Systems Exam Vitals Vital Signs Date Temp Pulse Resp B/P (MAP) Pulse Ox O2 O2 Flow FiO2 Time Delivery Rate 09/16/18 98.4 74 18 93/54 (67) 98 Room Air 08:21 Intake and Output 09/15/18 09/15/18 09/16/18 1515:00 23:00 07:00 IntakeIntake Total 800 ml 620 ml 500 ml BalanceBalance 800 ml 620 ml 500 ml Constitutional: alert, oriented Respiratory: clear to auscultation Cardiovascular: regular rate and rhythm Gastrointestinal: soft, distended Musculoskeletal: nl extremities to inspection Medications Medication Current Medications IV Flush (NS 3 ml) 3 ml PER PROTOCOL IV Last administered on 09/13/18at 02:01; Admin Dose 3 ML; Start 09/12/18 at 16:00 Acetaminophen/ Hydrocodone Bitart ([place] (5/325)) 2 tab Q6H PRN PO .SEVERE PAIN 7-10 Last administered on 09/16/18at 04:16; Admin Dose 2 TAB; Start 09/12/18 at 16:00 Heparin Sodium (Porcine) (Heparin (5000 Units/1ml)) 5,000 unit Q12 SC Last administered on 09/16/18 08:55; Admin Dose 5,000 UNIT; Start 09/12/18 at 21:00 Ondansetron HCl (Zofran Inj) 4 mg Q4H PRN IV NAUSEA AND/OR VOMITING Last administered on 09/16/18 08:54; Admin Dose 4 MG; Start 09/14/18 at 05:00 Furosemide (Lasix) 20 mg BID DIURETICS PO Last administered on 09/16/18 05:17; Admin Dose 20 MG; Start 09/15/18 at 10:30 Spironolactone (Aldactone) 50 mg DAILY PO Last administered on 09/16/18 08:54; Admin Dose 50 MG; Start 09/15/18 at 10:30 Ciprofloxacin (Cipro) 500 mg BID@06,18 PO Last administered on 09/16/18 05:17; Admin Dose 500 MG; Start 09/15/18 at 18:00 Clindamycin HCl (Cleocin) 450 mg Q8 PO Last administered on 09/16/18 14:23; Admin Dose 450 MG; Start 09/16/18 at 14:00 RENE RUIZ Sep 16, 2018 15:20
[2018-09-16 18:12] VITALS: BP 98/60; PULSE 76; RESP 17
[2018-09-16 20:37] VITALS: BP 111/65; PULSE 76; RESP 18
[2018-09-17] MEDS: ONDANSETRON 4 MG INJ IV PRN ×3 (00:37→15:21)
[2018-09-17] MEDS: HYDROCODONE/APAP (5/325) TAB PO PRN ×3 (00:42→22:24)
[2018-09-17 03:14] VITALS: BP 100/63; PULSE 79; RESP 20
[2018-09-17] MEDS: CLINDAMYCIN 150 MG CAP PO SCH ×3 (05:52→14:27)
[2018-09-17] MEDS: CIPROFLOXACIN 500 MG TAB PO SCH (05:53)
[2018-09-17] MEDS: FUROSEMIDE 20 MG TAB PO SCH ×2 (05:53→17:33)
[2018-09-17 08:23] VITALS: BP 97/56; PULSE 73; RESP 18
[2018-09-17] MEDS: SPIRONOLACTONE 50 MG TAB PO SCH (09:10)
[2018-09-17] MEDS: HEPARIN 5,000 UNIT/1 ML VIAL SC SCH ×2 (09:11→20:21)
--- NOTE | 2018-09-17 13:08 | CONS ---
Assessment/Plan Assessment/Plan Hospital Course (Demo Recall) Awake, c/o abdominal pain, refusing p.o. medications, no fevers Abdominal fluid cultures growing Serratia, Ewingella, alphahemolytic strep, enterococcus Indwelling's: None, status post bilateral abdominal drainage catheters being removed Antimicrobials: Cipro, Clinda Physical examination: Well-developed well-nourished middle-aged man who is alert in no distress. Head atraumatic normocephalic. Neck is supple. Chest rise symmetrical. Breath sounds diminished at bases. Heart: S1-S2. Abdomen soft, bowel tones present, mid abdominal marilyn clean dry and intact, patient has bilateral accordion drains on each side of the abdomen Assessment: 1. Ongoing SBP 2. Status post strangulated hernia repair 3. Anemia 4. Alcoholism with decompensated alcoholic cirrhosis Plan: Stable, dc p.o. antibiotics, start Zosyn, abd US to evaluate for ascites discussed with patient, discussed with RN Consultation Date/Type/Reason Admit Date/Time Sep 12, 2018 at 14:57 Initial Consult Date Type of Consult id Date/Time of Note DATE: 09/17/18 TIME: 13:05 Exam/Review of Systems Exam Vitals Vital Signs Date Temp Pulse Resp B/P (MAP) Pulse Ox O2 O2 Flow FiO2 Time Delivery Rate 09/17/18 98.1 73 18 97/56 (70) 99 Room Air 08:23 Intake and Output 09/16/18 09/16/18 09/17/18 1515:00 23:00 07:00 IntakeIntake Total 1020 ml 400 ml OutputOutput Total 700 ml BalanceBalance 320 ml 400 ml Results Result Diagram: 09/14/18 0536 09/15/18 0602 Medications Medication Current Medications IV Flush (NS 3 ml) 3 ml PER PROTOCOL IV Last administered on 09/13/18at 02:01; Admin Dose 3 ML; Start 09/12/18 at 16:00 Acetaminophen/ Hydrocodone Bitart ([place] (5/325)) 2 tab Q6H PRN PO .SEVERE PAIN 7-10 Last administered on 09/17/18at 00:42; Admin Dose 2 TAB; Start 09/12/18 at 16:00 Heparin Sodium (Porcine) (Heparin (5000 Units/1ml)) 5,000 unit Q12 SC Last administered on 09/17/18at 09:11; Admin Dose 5,000 UNIT; Start 09/12/18 at 21:00 Ondansetron HCl (Zofran Inj) 4 mg Q4H PRN IV NAUSEA AND/OR VOMITING Last administered on 09/17/18 09:12; Admin Dose 4 MG; Start 09/14/18 at 05:00 Furosemide (Lasix) 20 mg BID DIURETICS PO Last administered on 09/17/18 05:53; Admin Dose 20 MG; Start 09/15/18 at 10:30 Spironolactone (Aldactone) 50 mg DAILY PO Last administered on 09/17/18 09:10; Admin Dose 50 MG; Start 09/15/18 at 10:30 Ciprofloxacin (Cipro) 500 mg BID@06,18 PO Last administered on 09/17/18 05:53; Admin Dose 500 MG; Start 09/15/18 at 18:00 Clindamycin HCl (Cleocin) 450 mg Q8 PO Last administered on 09/17/18 05:52; Admin Dose 450 MG; Start 09/16/18 at 14:00 ANKUR BEST NP Sep 17, 2018 13:08
[2018-09-17] MEDS: AMPICILLIN 500 MG CAP PO SCH ×2 (14:00→14:27)
[2018-09-17 15:08] VITALS: BP 108/62; PULSE 86; RESP 18
--- NOTE | 2018-09-17 15:27 | PN ---
Date/Time of Note Date/Time of Note DATE: 09/17/18 TIME: 15:26 Assessment/Plan VTE Prophylaxis Risk score (from Nsg)>0 risk: 3 Pharmacological prophylaxis: NA/contraindicated Pharm contraindication: liver dx Lines/Catheters IV Catheter Type (from Nrsg): Saline Lock Urinary Cath still in place: No Assessment/Plan Hospital Course 52 yo male with h/o cirrhosis, recent umbilical hernia repair complicated by infection and fluid collection for which drains were placed. Now returns with p urulent drainage from the drain. Imaging showing no discrete fluid collection but likely peritonitis Peritonitis, 2/2 catheter in the belly: -Catheter removed - Dc zosyn, continue PO ciprofloxacin - Ascites is re-accumulating, will require further thoracentesis -ID following Hyponatremia secondary to cirrhosis - FW restriction DOMINIQUE with hyperkalemia: - resolved Cirrhosis: -Continue diuretics. Repeat paracentesis Plan: Anticipate DC to home possibly tomorrow Result Diagram: 09/14/18 0536 09/15/18 0602 Subjective 24 Hr Interval Summary Gastrointestinal: pain Exam/Review of Systems Exam Vitals Vital Signs Date Temp Pulse Resp B/P (MAP) Pulse Ox O2 O2 Flow FiO2 Time Delivery Rate 09/17/18 97.9 86 18 108/62 99 Room Air 15:08 (77) Intake and Output 09/16/18 09/16/18 09/17/18 1515:00 23:00 07:00 IntakeIntake Total 1020 ml 400 ml OutputOutput Total 700 ml BalanceBalance 320 ml 400 ml Constitutional: alert, oriented Respiratory: clear to auscultation Cardiovascular: regular rate and rhythm Gastrointestinal: soft, distended Musculoskeletal: nl extremities to inspection Medications Medication Current Medications IV Flush (NS 3 ml) 3 ml PER PROTOCOL IV Last administered on 09/13/18at 02:01; Admin Dose 3 ML; Start 09/12/18 at 16:00 Acetaminophen/ Hydrocodone Bitart ([place] (5/325)) 2 tab Q6H PRN PO .SEVERE PAIN 7-10 Last administered on 09/17/18at 14:35; Admin Dose 2 TAB; Start 09/12/18 at 16:00 Heparin Sodium (Porcine) (Heparin (5000 Units/1ml)) 5,000 unit Q12 SC Last administered on 09/17/18at 09:11; Admin Dose 5,000 UNIT; Start 09/12/18 at 21:00 Ondansetron HCl (Zofran Inj) 4 mg Q4H PRN IV NAUSEA AND/OR VOMITING Last administered on 09/17/18at 15:21; Admin Dose 4 MG; Start 09/14/18 at 05:00 Furosemide (Lasix) 20 mg BID DIURETICS PO Last administered on 09/17/18at 05:53; Admin Dose 20 MG; Start 09/15/18 at 10:30 Spironolactone (Aldactone) 50 mg DAILY PO Last administered on 09/17/18at 09:10; Admin Dose 50 MG; Start 09/15/18 at 10:30 Ciprofloxacin (Cipro) 500 mg BID@06,18 PO Last administered on 09/17/18at 05:53; Admin Dose 500 MG; Start 09/15/18 at 18:00 Clindamycin HCl (Cleocin) 450 mg Q8 PO Last administered on 09/17/18at 05:52; Admin Dose 450 MG; Start 09/16/18 at 14:00 Ampicillin (Ampicillin) 500 mg Q8 PO ; Start 09/17/18 at 14:00 RENE RUIZ Sep 17, 2018 15:27
[2018-09-17] MEDS: PIPER-TAZO 3.375 GM IV (PMX) 100 ML IVPB SCH ×2 (16:37→22:24)
[2018-09-17 20:00] VITALS: BP 99/62; PULSE 73; RESP 19
[2018-09-18 01:56] VITALS: BP 97/62; PULSE 72; RESP 18
[2018-09-18] MEDS: ONDANSETRON 4 MG INJ IV PRN (03:10)
[2018-09-18] MEDS: PIPER-TAZO 3.375 GM IV (PMX) 100 ML IVPB SCH ×2 (06:19→14:29)
[2018-09-18] MEDS: FUROSEMIDE 20 MG TAB PO SCH ×2 (06:24→18:00)
[2018-09-18 08:25] VITALS: BP 113/65; PULSE 69; RESP 18
[2018-09-18] MEDS: HEPARIN 5,000 UNIT/1 ML VIAL SC SCH (09:00)
[2018-09-18] MEDS: SPIRONOLACTONE 50 MG TAB PO SCH (09:05)
[2018-09-18] MEDS ORDERED: LIDOCAINE 1% (MPF) 5 ML VIAL ONE (11:27)
[2018-09-18] MEDS: HYDROCODONE/APAP (5/325) TAB PO PRN (11:51)
[2018-09-18 11:53] VITALS: BP 100/60
[2018-09-18 12:35] VITALS: PULSE 66
--- NOTE | 2018-09-18 12:58 | CONS ---
Assessment/Plan Assessment/Plan Hospital Course (Demo Recall) No events, looks comfortable Abdominal fluid cultures growing Serratia, Ewingella, alphahemolytic strep, enterococcus Indwelling's: None, status post bilateral abdominal drainage catheters being removed Antimicrobials: Cipro, Clinda Physical examination: Well-developed well-nourished middle-aged man who is alert in no distress. Head atraumatic normocephalic. Neck is supple. Chest rise symmetrical. Breath sounds diminished at bases. Heart: S1-S2. Abdomen soft, bowel tones present, mid abdominal marilyn clean dry and intact, patient has bilateral accordion drains on each side of the abdomen Assessment: 1. Ongoing SBP 2. Status post strangulated hernia repair 3. Anemia 4. Alcoholism with decompensated alcoholic cirrhosis Plan: Stable, pending paracentesis, anticipate dc on oral Cipro and Amoxil Consultation Date/Type/Reason Admit Date/Time Sep 12, 2018 at 14:57 Initial Consult Date Type of Consult id Date/Time of Note DATE: 09/18/18 TIME: 12:57 Exam/Review of Systems Exam Vitals Vital Signs Date Temp Pulse Resp B/P (MAP) Pulse Ox O2 O2 Flow FiO2 Time Delivery Rate 09/18/18 66 93 Room Air 12:35 09/18/18 100/60 11:53 (73) 09/18/18 98.0 18 08:25 Intake and Output 09/17/18 09/17/18 09/18/18 1515:00 23:00 07:00 IntakeIntake Total 840 ml 700 ml 500 ml BalanceBalance 840 ml 700 ml 500 ml Results Result Diagram: 09/14/18 0536 09/15/18 0602 Medications Medication Current Medications IV Flush (NS 3 ml) 3 ml PER PROTOCOL IV Last administered on 09/13/18at 02:01; Admin Dose 3 ML; Start 09/12/18 at 16:00 Acetaminophen/ Hydrocodone Bitart ([place] (5/325)) 2 tab Q6H PRN PO .SEVERE PAIN 7-10 Last administered on 09/18/18at 11:51; Admin Dose 2 TAB; Start 09/12/18 at 16:00 Heparin Sodium (Porcine) (Heparin (5000 Units/1ml)) 5,000 unit Q12 SC Last administered on 09/17/18at 20:21; Admin Dose 5,000 UNIT; Start 09/12/18 at 21:00 Ondansetron HCl (Zofran Inj) 4 mg Q4H PRN IV NAUSEA AND/OR VOMITING Last administered on 09/18/18at 03:10; Admin Dose 4 MG; Start 09/14/18 at 05:00 Furosemide (Lasix) 20 mg BID DIURETICS PO Last administered on 09/18/18at 06:24; Admin Dose 20 MG; Start 09/15/18 at 10:30 Spironolactone (Aldactone) 50 mg DAILY PO Last administered on 09/18/18at 09:05; Admin Dose 50 MG; Start 09/15/18 at 10:30 Piperacillin Sod/ Tazobactam Sod 100 ml @ 200 mls/hr Q8 IVPB Last administered on 09/18/18at 06:19; Admin Dose 200 MLS/HR; Start 09/17/18 at 16:00 ANKUR BEST NP Sep 18, 2018 12:58
[2018-09-18 14:00] VITALS: BP 108/58; PULSE 86; RESP 19
[2018-09-18] MEDS ORDERED: SPIR50TA PO (15:22)
[2018-09-18] MEDS ORDERED: CIPR500T4 PO (15:22)
[2018-09-18] MEDS ORDERED: AMOX500C2 PO (15:22)
[2018-09-18] MEDS ORDERED: LAS20 PO (15:22)
--- NOTE | 2018-09-18 15:23 | PDOCDIS ---
Discharge Instructions CONDITION [id number] Patient Condition: [id number] Good HOME CARE INSTRUCTIONS: [id number] Diet Instructions: [id number] Reduced Sodium ACTIVITY: [id number] Activity Restrictions: [id number] No Restrictions FOLLOW UP/APPOINTMENTS Follow-up Plan FOLLOW UP WITH YOUR PRIMARY CARE PHYSICIAN IN 1-2 WEEKS RENE RUIZ Sep 18, 2018 15:23
--- NOTE | 2018-09-18 15:29 | DS ---
Date/Time of Note Date/Time of Note DATE: 09/18/18 TIME: 15:23 Discharge Summary Admission/Discharge Info Admit Date/Time Sep 12, 2018 at 14:57 Discharge Date/Time September 18, 2018 Discharge Diagnosis Peritonitis, 2/2 catheter in the belly: -Catheter removed -Status post Zosyn, DC with Cipro and amoxicillin -Status post thoracentesis -DC with Aldactone and Lasix -ID following Hyponatremia secondary to cirrhosis - FW restriction DOMINIQUE with hyperkalemia: - resolved Alcohol-related cirrhosis -Continue diuretics. Status post repeat paracentesis -Denies any further alcohol consumption Recent umbilical hernia surgery -Surgical consultation with Dr. Anderson appreciated Patient Condition: Good Hospital Course Patient is a 52 yo male with h/o alcohol related cirrhosis, recent umbilical hernia repair complicated by infection and fluid collection for which drains were placed. Now returns with purulent drainage from the drain. Imaging showing no discrete fluid collection but likely peritonitis ascitic fluid culture was positive for multiple organisms. Patient did receive Zosyn and was switched to Cipro and ampicillin but patient was refusing oral medications, antibiotics will be managed by ID. Patient was seen by Dr. Anderson of surgery was done the umbilical hernia repair and he recommended removal of abdominal catheter and sutures were placed to the right lower quadrant drain to prevent ascites leak. Patient was placed on Lasix and Aldactone and did require further paracentesis. Patient was stable for DC per ID, on day of discharge patient's vitals, labs and physical exam are stable. Home Meds Active Scripts Spironolactone* (Aldactone*) 50 Mg Tablet, 50 MG PO BID, #60 TAB 1 Refill Prov:RENE RUIZ 09/18/18 Amoxicillin* (Amoxicillin*) 500 Mg Cap, 500 MG PO Q8 for 5 Days, #15 CAP Prov:RENE RUIZ 09/18/18 Ciprofloxacin Hcl* (Ciprofloxacin Hcl*) 500 Mg Tablet, 500 MG PO BID for 5 Days, #10 TAB Prov:RENE RUIZ 09/18/18 Furosemide (Lasix) 20 Mg Tab, 20 MG PO BID DIURETICS, #60 TAB 1 Refill Prov:RENE RUIZ 09/18/18 Discontinued Reported Medications Pantoprazole* (Pantoprazole*) 40 Mg Tablet.dr, 40 MG PO AC BREAKFAST, TAB 07/23/18 Discontinued Scripts Amoxicillin* (Amoxil*) 500 Mg Tablet, 500 MG PO Q8 for 10 Days, #30 TAB Prov:CALE MONTERROSO V. [employer]ING [employer] OPERATOR 09/05/18 Levofloxacin* (Levofloxacin*) 500 Mg Tablet, 500 MG PO DAILY for 10 Days, #10 TAB Prov:CALE MONTERRSOO V. [employer]ING PR[employer] OPERATOR 09/05/18 Follow-up Plan FOLLOW UP WITH YOUR PRIMARY CARE PHYSICIAN IN 1-2 WEEKS Primary Care Provider Care Physician No Primary Time spent on discharge: > 30 minutes RENE RUIZ Sep 18, 2018 15:29
== END 2018-09-18 18:02 | disposition home or self-care (01) | DRG 919 ==
LOC: E/R 08:57 → PP2 14:57
PROVIDERS: ADMIT Internal Medicine; ATTEND Internal Medicine
PROC: 0W9G3ZX Drainage of Peritoneal Cavity, Percutaneous Approach, Diagnostic (ICD-10-PCS; principal; 2018-09-18)
DX: T85.79XA Infection and inflammatory reaction due to other internal prosthetic devices, implants and grafts, initial encounter (principal); K65.2 Spontaneous bacterial peritonitis; E87.1 Hypo-osmolality and hyponatremia; N17.9 Acute kidney failure, unspecified; K70.31 Alcoholic cirrhosis of liver with ascites; E87.5 Hyperkalemia; B95.4 Other streptococcus as the cause of diseases classified elsewhere; B95.2 Enterococcus as the cause of diseases classified elsewhere; B96.89 Other specified bacterial agents as the cause of diseases classified elsewhere
CPT/HCPCS: 36415; 74177; 76700; 80048; 80053; 81001; 81003; 82042; 83036; 83690; 85025; 87040; 87070; 87102; 87116; 89051; 96374; 96375; J1170; J1335; J1644; J2405; J2543; J7030; J7040; Q9967

== ENCOUNTER 2018-09-27 08:06 | Emergency (ER) | payer MEDICAID ==
[~2018-09-27] VITALS: Ht 154.9 cm; Wt 73.8 kg
[~2018-09-27 08:06] MED LIST changes: +AMOX500C2 PO; -AMOX500T PO; +CIPR500T4 PO; +LAS20 PO; -LEVO500T10 PO; -PANT40TA4 PO; +SPIR50TA PO
[2018-09-27 08:09] VITALS: Ht 154.9 cm; Wt 73.8 kg
--- NOTE | 2018-09-27 08:22 | ERD ---
ER Documentation Chief Complaint Chief Complaint ABDOMINAL PAIN & DISTENTION W/NAUSEA HPI 52-year-old gentleman who presents requesting paracentesis. The patient had a hospitalization at the end of August for SBP. He had multiple paracentesis during that hospital stay. The patient additionally had a drain that was removed secondary to hernia repair. He describes fullness but no significant pain. No fevers or chills, no hematemesis or melena. Symptoms present for approximately 1 week. ROS All systems reviewed and are negative except as per history of present illness. Medications Home Meds Active Scripts Spironolactone* (Aldactone*) 50 Mg Tablet, 50 MG PO BID, #60 TAB 1 Refill Prov:RENE RUIZ 09/18/18 Amoxicillin* (Amoxicillin*) 500 Mg Cap, 500 MG PO Q8 for 5 Days, #15 CAP Prov:RENE RUZI 09/18/18 Ciprofloxacin Hcl* (Ciprofloxacin Hcl*) 500 Mg Tablet, 500 MG PO BID for 5 Days, #10 TAB Prov:JOSEPHSHANIAFausto 09/18/18 Furosemide (Lasix) 20 Mg Tab, 20 MG PO BID DIURETICS, #60 TAB 1 Refill Prov:RENE RUIZ 09/18/18 Allergies Allergies: Coded Allergies: No Known Allergy (Unverified , 09/12/18) PMhx/Soc History of Surgery: Yes Anesthesia Reaction: No Hx Neurological Disorder: No Hx Respiratory Disorders: No Hx Cardiac Disorders: Yes (Hypotension) Hx Psychiatric Problems: No Hx Miscellaneous Medical Probl: Yes (Cirrhosis with ascites, umbilical hernia) Hx Alcohol Use: Yes Hx Substance Use: No Hx Tobacco Use: No Physical Exam Vitals Vital Signs Date Temp Pulse Resp B/P (MAP) Pulse Ox O2 O2 Flow FiO2 Time Delivery Rate 09/27/18 65 16 105/74 100 Room Air 10:12 (84) 09/27/18 74 18 107/65 100 Room Air 09:45 (79) 09/27/18 74 20 111/79 98 Room Air 09:20 (90) 09/27/18 98.6 90 19 138/75 100 08:09 (96) Physical Exam General: Stigmata of cirrhosis Head: Normocephalic, atraumatic. Eyes: Pupils equally reactive, EOM intact ENT: Moist mucous membranes Neck: Supple, no lymphadenopathy Respiratory: Lungs clear bilaterally, no distress Cardiovascular: RRR, no murmurs, rubs, or gallops Abdominal: Soft, protuberant with fluid wave, well-healing surgical wound, no tenderness, no peritonitis : Deferred MSK: No edema, no unilateral swelling, 5/5 strength Neurologic: Alert and oriented, moving all extremities, normal speech, no focal weakness, no cerebellar signs Skin: No rash Psych: Normal mood Results 24 hrs Current Medications Medications Dose Sig/Sara Start Time Status Last (Trade) Ordered Route PRN Stop Time Admin Dose Reason Admin Lidocaine 5 ml STK-MED 09/27/18 DC (Xylocaine ONCE .ROUTE 09:55 09/27/18 1% (Mpf)) 09:56 Procedures/MDM EKG, MONITORS, & DIAGNOSTIC IMAGING: Therapeutic paracentesis performed by interventional radiology. LAB INTERPRETATION: No significant coagulopathy noted on laboratory testing up-to-date within the past 30 days MEDICAL DECISION MAKING: The patient presents with abdominal ascites likely secondary to cirrhosis. Patient does not exhibit any signs or symptoms concerning for complications of cirrhosis such as GI bleed, hepatic encephalopathy or spontaneous bacterial peritonitis. There is no indication currently for diagnostic paracentesis. The patient will benefit from therapeutic paracentesis by interventional radiology. If the patient remains stable without evidence of hemodynamic compromise or post-paracentesis circulatory dysfunction secondary to fluid shifts the patient can be safely discharged home with close primary care and hepatology follow-up. ER COURSE: The patient had successful therapeutic paracentesis limited to 5L. The patient remained hemodynamically stable and otherwise well-appearing. The patient is safe for discharge home. No indication for albumin infusion at this time. I kept the patient and/or family informed of laboratory and diagnostic imaging results throughout the emergency room course. DISPOSITION PLAN: We discussed follow up with the patient's primary care doctor within 24 to 48 hours as needed. We also discussed return to the emergency room for worsening symptoms or worsening condition. Discharge Medications: None Departure Diagnosis: Primary Impression: Ascites Ascites type: due to alcoholic cirrhosis Qualified Codes: K70.31 - Alcoholic cirrhosis of liver with ascites Condition: JENNIFER Melvin MD Sep 27, 2018 08:22
[2018-09-27 09:20] VITALS: BP 111/79; PULSE 74; RESP 20
[2018-09-27 09:45] VITALS: BP 107/65; PULSE 74; RESP 18
[2018-09-27] MEDS ORDERED: LIDOCAINE 1% (MPF) 5 ML VIAL ONE (09:55)
[2018-09-27 10:12] VITALS: BP 105/74; PULSE 65; RESP 16
== END 2018-09-27 10:20 | disposition home or self-care (01) ==
LOC: E/R 08:06
DX: K70.31 Alcoholic cirrhosis of liver with ascites (principal)
CPT/HCPCS: Z7502; Z7610

== ENCOUNTER 2018-10-07 08:03 | Emergency (ER) | payer MEDICAID ==
[~2018-10-07] VITALS: Wt 75.0 kg
[2018-10-07 09:22] VITALS: BP 121/82; PULSE 70; RESP 22
[2018-10-07] MEDS ORDERED: LIDOCAINE 1% (MPF) 5 ML VIAL ONE (09:29)
[2018-10-07 09:48] VITALS: BP 122/80; PULSE 71; RESP 20
--- NOTE | 2018-10-07 10:03 | ERD ---
ER Documentation Chief Complaint Chief Complaint abd swelling for the past few days. need paracenthesis. no pain HPI This is a 53-year-old male well-known to the ER here he is here for therapeutic paracentesis just. He has no abdominal pain no nausea vomiting diarrhea chest pain or shortness of breath. ROS All systems reviewed and are negative except as per history of present illness. Medications Home Meds Active Scripts Spironolactone* (Aldactone*) 50 Mg Tablet, 50 MG PO BID, #60 TAB 1 Refill Prov:RENE RUIZ 09/18/18 Amoxicillin* (Amoxicillin*) 500 Mg Cap, 500 MG PO Q8 for 5 Days, #15 CAP Prov:RENE RUIZ 09/18/18 Ciprofloxacin Hcl* (Ciprofloxacin Hcl*) 500 Mg Tablet, 500 MG PO BID for 5 Days, #10 TAB Prov:RENE RUIZ 09/18/18 Furosemide (Lasix) 20 Mg Tab, 20 MG PO BID DIURETICS, #60 TAB 1 Refill Prov:RENE RUIZ 09/18/18 Allergies Allergies: Coded Allergies: No Known Allergy (Unverified , 09/12/18) PMhx/Soc History of Surgery: Yes (UNBILICAL HERNIA REPAIR) Anesthesia Reaction: No Hx Neurological Disorder: No Hx Respiratory Disorders: No Hx Cardiac Disorders: Yes (Hypotension) Hx Psychiatric Problems: No Hx Miscellaneous Medical Probl: Yes (Cirrhosis with ascites) Hx Alcohol Use: Yes (FORMER DRINKER; STOPPED IN 2018) Hx Substance Use: No Hx Tobacco Use: No Smoking Status: Unknown if ever smoked FmHx Family History: No coronary disease Physical Exam Vitals Vital Signs Date Temp Pulse Resp B/P (MAP) Pulse Ox O2 O2 Flow FiO2 Time Delivery Rate 10/07/18 71 20 122/80 99 Room Air 09:48 (94) 10/07/18 98.0 70 22 121/82 100 Room Air 09:22 (95) 10/07/18 97.8 83 18 118/76 99 08:08 (90) Physical Exam Const: Well-developed, well-nourished Head: Atraumatic, normocephalic Eyes: Normal Conjunctiva, PERRLA, EOMI, normal sclera, no nystagmus ENT: Normal External Ears, Nose and Mouth, moist mucus membranes. Neck: Full range of motion. No meningismus, no lymphadenopathy. Resp: Clear to auscultation bilaterally, no wheezing, rhonchi, rales Cardio: Regular rate and rhythm, no murmurs, S1 S2 present Abd: Soft, distended with ascites nontender normal bowel sounds, no guarding or rebound, no pulsitile abdominal masses or bruits Skin: No petechiae or rashes, no ecchymosis , no maculopapular rash Back: No midline or flank tenderness Ext: No cyanosis, or edema, FROM x 4, normal inspection, neurovascularly intact x 4 Neur: Awake and alert, STR 5/5 x 4, sensation intact x 4, no focal findings, cerebellum intact Psych: Normal Mood and Affect Results 24 hrs Current Medications Medications Dose Sig/Sara Start Time Status Last (Trade) Ordered Route PRN Stop Time Admin Dose Reason Admin Lidocaine 5 ml STK-MED 10/07/18 DC 10/07/18 (Xylocaine ONCE .ROUTE 09:29 09:53 1% (Mpf)) 10/07/18 09:30 Procedures/MDM Patient received a therapeutic paracentesis by the interventional radiologist. Will discharge home Departure Diagnosis: Primary Impression: Ascites Ascites type: other type Qualified Codes: R18.8 - Other ascites Condition: Stable Patient Instructions: DAYTON Smith DO Oct 07, 2018 10:03
== END 2018-10-07 10:27 | disposition home or self-care (01) ==
LOC: E/R 08:03
DX: R18.8 Other ascites (principal)
CPT/HCPCS: Z7502; Z7610

== ENCOUNTER 2018-10-17 08:02 | Emergency (ER) | payer MEDICAID ==
[~2018-10-17] VITALS: Ht 165.1 cm; Wt 74.1 kg
[2018-10-17 08:16] VITALS: RESP 18; Ht 165.1 cm; Wt 74.1 kg
[2018-10-17 09:00] VITALS: BP 121/79; PULSE 76
[2018-10-17 09:35] VITALS: BP 121/79; PULSE 76
--- NOTE | 2018-10-17 09:37 | ERD ---
ER Documentation Chief Complaint Chief Complaint needs paracenthesis had it done last week HPI This is a 53-year-old male with known history of alcoholic liver cirrhosis. The patient states he has not consumed any alcohol for over 1 year and 4 months. He requires multiple paracentesis. His last therapeutic paracentesis was a week ago. He has been complaining of abdominal distention. He denies any fevers shaking or chills. No hemoptysis no hematemesis no melanotic stools. ROS All systems reviewed and are negative except as per history of present illness. Medications Home Meds Active Scripts Spironolactone* (Aldactone*) 50 Mg Tablet, 50 MG PO BID, #60 TAB 1 Refill Prov:RENE RUIZ 09/18/18 Amoxicillin* (Amoxicillin*) 500 Mg Cap, 500 MG PO Q8 for 5 Days, #15 CAP Prov:RENE RUIZ 09/18/18 Ciprofloxacin Hcl* (Ciprofloxacin Hcl*) 500 Mg Tablet, 500 MG PO BID for 5 Days, #10 TAB Prov:JOSEPHRENE 09/18/18 Furosemide (Lasix) 20 Mg Tab, 20 MG PO BID DIURETICS, #60 TAB 1 Refill Prov:RENE RUIZ 09/18/18 Allergies Allergies: Coded Allergies: No Known Allergy (Unverified , 09/12/18) PMhx/Soc History of Surgery: Yes (UNBILICAL HERNIA REPAIR) Anesthesia Reaction: No Hx Neurological Disorder: No Hx Respiratory Disorders: No Hx Cardiac Disorders: Yes (Hypotension) Hx Psychiatric Problems: No Hx Miscellaneous Medical Probl: Yes (Cirrhosis with ascites) Hx Alcohol Use: Yes (FORMER DRINKER; STOPPED IN 2018) Hx Substance Use: No Hx Tobacco Use: No Physical Exam Vitals Vital Signs Date Temp Pulse Resp B/P (MAP) Pulse Ox O2 O2 Flow FiO2 Time Delivery Rate 10/17/18 98.2 74 18 123/76 98 08:16 (92) Physical Exam Constitutional:Well-developed. Well-nourished. HEENT:Normocephalic. Atraumatic.Pupils were equal round reactive to light. Moist mucous membranes.No tonsillar exudates. Neck: No nuchal rigidity. No lymphadenopathy. No posterior cervical spine tenderness or step-offs. Respiratory: Not using accessory muscles of respiration.Lungs were clear to auscultation bilaterally. No rhonchi. No rales. No wheezing. Cardiovascular: Regular rate regular rhythm.No murmurs. No rubs were appreciated.S1, S2 normal. Distal pulses are palpable 2+ bilaterally. GI; Nontender. Distended with tense ascites. No pulsatile abdominal masses or bruits. No rebound. No guarding. Bowel sounds were present and normal. Skin: No petechia, no purpura. No lesions on the palms or the soles of the feet. No maculopapular rash. No jaundice NEURO: Patient was alert, awake, orientated x3.No facial droop. Gait observed and normal with no ataxia.Speech had regular rate and rhythm. No focal neurological deficits. Procedures/MDM This is a 53-year-old male that presented to the emergency department for therapeutic paracentesis. The patient tolerated the procedure well. This was performed by the radiologist under ultrasound guidance. 5 L was removed. No physical exam findings to suggest spontaneous bacterial peritonitis. The patient was discharged home in fair condition. They were instructed to return to the emergency department at any time if there was any worsening of their condition. The patient stated they would follow up with their PCP in the next 24-48 hours to initiate a suitable medication regimen under the care of their PCP as well as to allow their PCP to monitor any drug reactions. The patient was discharged home with prescriptions after they gave informed consent to the new medication. They were also fully informed by myself on the adverse effects and adverse drug interactions in order to provide adequate safeguards to prevent possible adverse reactions to medications. Departure Diagnosis: Primary Impression: Ascites Ascites type: due to alcoholic cirrhosis Qualified Codes: K70.31 - Alcoholic cirrhosis of liver with ascites Condition: JOHN Wei MD Oct 17, 2018 09:37
[2018-10-17] MEDS ORDERED: LIDOCAINE 1% (MPF) 5 ML VIAL ONE (09:39)
== END 2018-10-17 09:58 | disposition home or self-care (01) ==
LOC: E/R 08:02
DX: K70.31 Alcoholic cirrhosis of liver with ascites (principal)
CPT/HCPCS: Z7502; Z7610

== ENCOUNTER 2018-10-24 08:03 | Emergency (ER) | payer MEDICAID ==
[~2018-10-24] VITALS: Ht 167.6 cm; Wt 74.1 kg
[2018-10-24 08:07] VITALS: Ht 167.6 cm; Wt 74.1 kg
--- NOTE | 2018-10-24 08:46 | ERD ---
ER Documentation Chief Complaint Chief Complaint Complains of abdominal pain Hx of Ascites HPI 53-year-old male with history of alcoholic liver cirrhosis and recurrent ascites status post multiple paracentesis presents to the ED complaining of increasing abdominal distention requesting paracentesis. Denies abdominal pain, nausea, vomiting, hematemesis, hematochezia or melanotic stools. Denies shortness of breath, cough or hemoptysis.. No fevers or chills. ROS All systems reviewed and are negative except as per history of present illness. Medications Home Meds Active Scripts Spironolactone* (Aldactone*) 50 Mg Tablet, 50 MG PO BID, #60 TAB 1 Refill Prov:RENE RUIZ 09/18/18 Amoxicillin* (Amoxicillin*) 500 Mg Cap, 500 MG PO Q8 for 5 Days, #15 CAP Prov:RENE RUIZ 09/18/18 Ciprofloxacin Hcl* (Ciprofloxacin Hcl*) 500 Mg Tablet, 500 MG PO BID for 5 Days, #10 TAB Prov:SHANIA RUIZFausto 09/18/18 Furosemide (Lasix) 20 Mg Tab, 20 MG PO BID DIURETICS, #60 TAB 1 Refill Prov:RENE RUIZ 09/18/18 Allergies Allergies: Coded Allergies: No Known Allergy (Unverified , 09/12/18) PMhx/Soc History of Surgery: Yes (UNBILICAL HERNIA REPAIR) Anesthesia Reaction: No Hx Neurological Disorder: No Hx Respiratory Disorders: No Hx Cardiac Disorders: Yes (Hypotension) Hx Psychiatric Problems: No Hx Miscellaneous Medical Probl: Yes (Cirrhosis with ascites) Hx Alcohol Use: Yes (FORMER DRINKER; STOPPED IN 2018) Hx Substance Use: No Hx Tobacco Use: No Smoking Status: Never smoker FmHx No family history relevant to presenting Physical Exam Vitals Vital Signs Date Temp Pulse Resp B/P (MAP) Pulse Ox O2 O2 Flow FiO2 Time Delivery Rate 10/24/18 96.9 77 17 105/73 100 Room Air 10:29 (84) 10/24/18 98.4 68 18 103/72 99 Room Air 10:17 (82) 10/24/18 69 20 110/68 97 Room Air 10:00 (82) 10/24/18 98.6 111/68 96 Room Air 09:30 (82) 10/24/18 98.5 75 20 109/70 98 08:07 (83) Physical Exam Const: Alert, no acute distress Head: Atraumatic Eyes: Normal Conjunctiva ENT: Normal External Ears, Nose and Mouth. Neck: Full range of motion. No JVD. No meningismus. Resp: Breath sounds are minimally decreased at the bases but otherwise clear to auscultation bilaterally Cardio: Regular rate and rhythm, no murmurs Abd: Soft, distended, positive fluid wave, non tender. No rebound or guarding. Normal bowel sounds Skin: No petechiae or rashes Back: No midline or flank tenderness Ext: No cyanosis, or edema Neur: Awake and alert. Oriented. No focal deficit. Psych: Cooperative. Normal Mood and Affect Results 24 hrs Current Medications Medications Dose Sig/Sara Start Time Status Last (Trade) Ordered Route PRN Stop Time Admin Dose Reason Admin Lidocaine 5 ml STK-MED 10/24/18 DC (Xylocaine ONCE .ROUTE 09:57 10/24/18 1% (Mpf)) 09:58 Procedures/MDM DOCUMENTS REVIEWED: ED nurse, prior ED, prior records ED COURSE: Ultrasound-guided paracentesis by IR. REEXAMINATION/REEVALUATION: Time: 10:12. Doing well. Symptomatically improved. No hypotension. MEDICAL DECISION MAKIN-year-old male with history of alcoholic liver cirrhosis and recurrent ascites status post multiple paracentesis presents to the ED complaining of increasing abdominal distention requesting paracentesis. Large volume ultrasound-guided paracentesis performed by interventional radiology and 5 liters removed. Patient feels significantly better. No hypotension. No fever, leukocytosis, abdominal tenderness or other signs of an acute intra-abdominal process including but not limited to spontaneous bacterial peritonitis. Stable for discharge with precautionary instructions and outpatient follow-up as counseled. Counseled patient regarding diagnostic workup, diagnosis and need for followup. Understands to return to ED for bleeding, pain, discharge from puncture site, if symptoms recur, worsen or any other concerns. Departure Diagnosis: Primary Impression: Ascites Ascites type: due to alcoholic cirrhosis Qualified Codes: K70.31 - Alcoholic cirrhosis of liver with ascites Additional Impressions: Liver cirrhosis Hepatic cirrhosis type: alcoholic cirrhosis Ascites presence: with ascites Qualified Codes: K70.31 - Alcoholic cirrhosis of liver with ascites S/P abdominal paracentesis Condition: Stable (Improved) NURIA RUIZ MD October 24, 2018 08:46
[2018-10-24 09:30] VITALS: BP 111/68
[2018-10-24] MEDS ORDERED: LIDOCAINE 1% (MPF) 5 ML VIAL ONE (09:57)
[2018-10-24 10:00] VITALS: BP 110/68; PULSE 69; RESP 20
[2018-10-24 10:29] VITALS: BP 105/73; PULSE 77; RESP 17
== END 2018-10-24 13:39 | disposition home or self-care (01) ==
LOC: E/R 08:03
DX: K70.31 Alcoholic cirrhosis of liver with ascites (principal); Y84.4 Aspiration of fluid as the cause of abnormal reaction of the patient, or of later complication, without mention of misadventure at the time of the procedure
CPT/HCPCS: Z7502; Z7610

== ENCOUNTER 2018-11-06 08:22 | Emergency (ER) | payer MEDICAID ==
[~2018-11-06] VITALS: Ht 152.4 cm; Wt 75.4 kg
[2018-11-06 08:43] VITALS: Ht 152.4 cm; Wt 75.4 kg
--- NOTE | 2018-11-06 09:34 | ERD ---
ER Documentation Chief Complaint Chief Complaint ENCOUNTER FOR PARACENTESIS, LAST PARACENTESIS ON OCTOBER 24 HPI 53-year-old man with history of alcoholic cirrhosis and recurrent ascites presents with increasing abdominal distention. He denies blood per rectum or melena, no fevers or chills, no complaints of chest pain or shortness of breath ROS All systems reviewed and are negative except as per history of present illness. Medications Home Meds Reported Medications Spironolactone* (Spironolactone*) 100 Mg Tablet, 100 MG PO DAILY, TAB 11/06/18 Furosemide* (Furosemide*) 40 Mg Tablet, 40 MG PO DAILY, TAB 11/06/18 Discontinued Scripts Spironolactone* (Aldactone*) 50 Mg Tablet, 50 MG PO BID, #60 TAB 1 Refill Prov:RENE RUIZ 09/18/18 Amoxicillin* (Amoxicillin*) 500 Mg Cap, 500 MG PO Q8 for 5 Days, #15 CAP Prov:RENE RUIZ 09/18/18 Ciprofloxacin Hcl* (Ciprofloxacin Hcl*) 500 Mg Tablet, 500 MG PO BID for 5 Days, #10 TAB Prov:RENE RUIZ 09/18/18 Furosemide (Lasix) 20 Mg Tab, 20 MG PO BID DIURETICS, #60 TAB 1 Refill Prov:RENE RUIZ 09/18/18 Allergies Allergies: Coded Allergies: No Known Allergy (Unverified , 11/06/18) PMhx/Soc Alcoholic cirrhosis History of Surgery: Yes (UNBILICAL HERNIA REPAIR) Anesthesia Reaction: No Hx Neurological Disorder: No Hx Respiratory Disorders: No Hx Cardiac Disorders: Yes (Hypotension) Hx Psychiatric Problems: No Hx Miscellaneous Medical Probl: Yes (Cirrhosis with ascites) Hx Alcohol Use: Yes (FORMER DRINKER; STOPPED IN 2018) Hx Substance Use: No Hx Tobacco Use: No Smoking Status: Never smoker FmHx Family History: No diabetes Physical Exam Vitals Vital Signs Date Temp Pulse Resp B/P (MAP) Pulse Ox O2 O2 Flow FiO2 Time Delivery Rate 11/06/18 98.6 77 20 139/77 98 08:43 (97) Physical Exam Const: No acute distress, afebrile Resp: Clear to auscultation bilaterally Cardio: Regular rate and rhythm, no murmurs Abd: Soft, protuberant, distended, no guarding or rigidity Skin: No petechiae or rashes Back: No midline or flank tenderness Ext: No cyanosis, or edema Neur: Awake and alert x3, no asterixis, pupils equal round reactive to light, gait normal Psych: Normal Mood and Affect Result Diagram: 11/06/1891111/06/18911 Results 24 hrs Laboratory Tests Test 11/06/18 09:12 White Blood Count 5.0 10^3/ul Red Blood Count 3.90 10^6/ul Hemoglobin 11.3 g/dl Hematocrit 33.8 % Mean Corpuscular Volume 86.7 fl Mean Corpuscular Hemoglobin 29.0 pg Mean Corpuscular Hemoglobin Concent 33.4 g/dl Red Cell Distribution Width 15.8 % Platelet Count 68 10^3/UL Mean Platelet Volume 9.3 fl Immature Granulocytes % 0.200 % Neutrophils % 71.8 % Lymphocytes % 12.9 % Monocytes % 11.1 % Eosinophils % 3.4 % Basophils % 0.6 % Nucleated Red Blood Cells % 0.0 /100WBC Immature Granulocytes # 0.010 10^3/ul Neutrophils # 3.6 10^3/ul Lymphocytes # 0.6 10^3/ul Monocytes # 0.6 10^3/ul Eosinophils # 0.2 10^3/ul Basophils # 0.0 10^3/ul Nucleated Red Blood Cells # 0.0 10^3/ul Prothrombin Time 14.2 Sec Prothrombin Time Ratio 1.1 INR International Normalized Ratio 1.09 Activated Partial Thromboplast Time 34.7 Sec Sodium Level 136 mmol/L Potassium Level 4.2 mmol/L Chloride Level 106 mmol/L Carbon Dioxide Level 23 mmol/L Anion Gap 7 Blood Urea Nitrogen 13 mg/dl Creatinine 0.75 mg/dl Est Glomerular Filtrat Rate mL/min > 60 mL/min Glucose Level 121 mg/dl Calcium Level 8.3 mg/dl Total Bilirubin 0.9 mg/dl Direct Bilirubin 0.00 mg/dl Indirect Bilirubin 0.9 mg/dl Aspartate Amino Transf (AST/SGOT) 51 IU/L Alanine Aminotransferase (ALT/SGPT) 27 IU/L Alkaline Phosphatase 183 IU/L Total Protein 7.1 g/dl Albumin 3.2 g/dl Globulin 3.90 g/dl Albumin/Globulin Ratio 0.82 Lipase 92 U/L Procedures/MDM I ordered ultrasound-guided paracentesis for the radiology department. CBC and electrolytes were normal liver function tests normal, coagulation profile normal. 5 L of ascitic fluid was removed. Patient's vital signs remained normal and he felt much better after paracentesis. Differential diagnoses considered, included but not limited to acute coronary syndrome, pulmonary embolism, aortic dissection, abdominal aortic aneurysm, sepsis, stroke, meningitis, encephalitis, pneumonia, appendicitis, cholecy stitis, bowel obstruction, pyelonephritis, nephrolithiasis, cystitis, as well as metabolic, hematologic, and electrolyte abnormalities. As well as abscess, cellulitis, fractures, and dislocations. Patient feels much better at this time, and vital signs are normal, symptoms have improved. I did give strict instructions to return to the ED if symptoms continue or worsen, patient will otherwise follow-up with primary care physician. Patient understood instructions and agreed to plan. Disclaimer: Inadvertent spelling and grammatical errors are likely due to EHR/dictation software use and do not reflect on the overall quality of patient care. Also, please note that the electronic time recorded on this note does not necessarily reflect the actual time of the patient encounter. Departure Diagnosis: Primary Impression: Cirrhosis Hepatic cirrhosis type: alcoholic cirrhosis Ascites presence: with ascites Qualified Codes: K70.31 - Alcoholic cirrhosis of liver with ascites Condition: JULES Whitaker MD November 06, 2018 09:34
[2018-11-06] MEDS ORDERED: FURO40TA4 PO (10:26)
[2018-11-06] MEDS ORDERED: SPIR100T4 PO (10:27)
[2018-11-06 12:10] VITALS: BP 118/67; PULSE 68; RESP 18
[2018-11-06] MEDS ORDERED: LIDOCAINE 1% (MPF) 5 ML VIAL ONE (12:29)
[2018-11-06 12:40] VITALS: BP 140/93; PULSE 66; RESP 18
[2018-11-06 12:54] VITALS: BP 133/74; PULSE 66; RESP 17
== END 2018-11-06 12:55 | disposition home or self-care (01) ==
LOC: E/R 08:22
DX: K70.31 Alcoholic cirrhosis of liver with ascites (principal)
CPT/HCPCS: 36415; 80053; 83690; 85025; 85610; 85730; Z7502; Z7610

== ENCOUNTER 2018-11-14 08:06 | Emergency (ER) | payer MEDICAID ==
[~2018-11-14] VITALS: Wt 78.0 kg
[~2018-11-14 08:06] MED LIST changes: -AMOX500C2 PO; -CIPR500T4 PO; +FURO40TA4 PO; -LAS20 PO; +SPIR100T4 PO; -SPIR50TA PO
[2018-11-14 09:20] VITALS: BP 119/80; PULSE 78; RESP 18
--- NOTE | 2018-11-14 09:44 | ERD ---
ER Documentation Chief Complaint Chief Complaint HERE FOR PARACENTHESIS HPI This is a 53-year-old male who is here for therapeutic paracentesis. The patient is frequently seen here for the same. He has no abdominal pain or breathing issues no fever vomiting diarrhea. He was here last week for the same ROS All systems reviewed and are negative except as per history of present illness. Medications Home Meds Reported Medications Spironolactone* (Spironolactone*) 100 Mg Tablet, 100 MG PO DAILY, TAB 11/06/18 Furosemide* (Furosemide*) 40 Mg Tablet, 40 MG PO DAILY, TAB 11/06/18 Allergies Allergies: Coded Allergies: No Known Allergy (Unverified , 11/06/18) PMhx/Soc History of Surgery: Yes (UNBILICAL HERNIA REPAIR) Anesthesia Reaction: No Hx Neurological Disorder: No Hx Respiratory Disorders: No Hx Cardiac Disorders: Yes (Hypotension) Hx Psychiatric Problems: No Hx Miscellaneous Medical Probl: Yes (Cirrhosis with ascites) Hx Alcohol Use: Yes (FORMER DRINKER; STOPPED IN 2017) Hx Substance Use: No Hx Tobacco Use: No Smoking Status: Never smoker FmHx Family History: No coronary disease Physical Exam Vitals Vital Signs Date Temp Pulse Resp B/P (MAP) Pulse Ox O2 O2 Flow FiO2 Time Delivery Rate 11/14/18 78 18 119/80 100 Room Air 09:20 (93) 11/14/18 97.7 76 18 130/76 99 08:08 (94) Physical Exam Const: Well-developed, well-nourished Head: Atraumatic, normocephalic Eyes: Normal Conjunctiva, PERRLA, EOMI, normal sclera, no nystagmus ENT: Normal External Ears, Nose and Mouth, moist mucus membranes. Neck: Full range of motion. No meningismus, no lymphadenopathy. Resp: Clear to auscultation bilaterally, no wheezing, rhonchi, rales Cardio: Regular rate and rhythm, no murmurs, S1 S2 present Abd: Soft, non tender x 4, distended with ascites. Normal bowel sounds, no guarding or rebound, no pulsitile abdominal masses or bruits Skin: No petechiae or rashes, no ecchymosis , no maculopapular rash Back: No midline or flank tenderness Ext: No cyanosis, or edema, FROM x 4, normal inspection, neurovascularly intact x 4 Neur: Awake and alert, STR 5/5 x 4, sensation intact x 4, no focal findings, cerebellum intact Psych: Normal Mood and Affect Procedures/MDM Patient will go to interventional radiology who will do a therapeutic paracentesis and be discharged home Patient feels much better at this time, and vital signs are normal, symptoms have improved. I did give strict instructions to return to the ED if symptoms c ontinue or worsen, patient will otherwise follow-up with primary care physician. Patient understood instructions and agreed to plan. Disclaimer: Inadvertent spelling and grammatical errors are likely due to EHR/dictation software use and do not reflect on the overall quality of patient care. Also, please note that the electronic time recorded on this note does not necessarily reflect the actual time of the patient encounter. Departure Diagnosis: Primary Impression: Ascites Ascites type: other type Qualified Codes: R18.8 - Other ascites Condition: Stable DAYTON DUMAS DO November 14, 2018 09:43
[2018-11-14] MEDS ORDERED: LIDOCAINE 1% (MPF) 5 ML VIAL ONE (09:53)
[2018-11-14 09:55] VITALS: BP 106/64; PULSE 66; RESP 18
[2018-11-14 10:00] VITALS: BP 121/78; PULSE 76; RESP 20
== END 2018-11-14 10:00 | disposition home or self-care (01) ==
LOC: FTE 08:06 → E/R 10:00
DX: R18.8 Other ascites (principal); R40.2142 Coma scale, eyes open, spontaneous, at arrival to emergency department; R40.2362 Coma scale, best motor response, obeys commands, at arrival to emergency department; R40.2252 Coma scale, best verbal response, oriented, at arrival to emergency department
CPT/HCPCS: Z7502; Z7610

== ENCOUNTER 2018-11-22 08:16 | Emergency (ER) | payer MEDICAID ==
[~2018-11-22] VITALS: Ht 162.6 cm; Wt 74.3 kg
[2018-11-22 08:19] VITALS: Ht 162.6 cm; Wt 74.3 kg
[2018-11-22 10:45] VITALS: BP 117/83; PULSE 68; RESP 20
[2018-11-22 11:20] VITALS: BP 119/76; PULSE 69; RESP 18
[2018-11-22] MEDS ORDERED: LIDOCAINE 1% (MPF) 5 ML VIAL ONE (11:33)
--- NOTE | 2018-11-23 13:26 | ERD ---
ER Documentation Chief Complaint Chief Complaint Needs paracentsis abdominal distention HPI This is a 53-year-old male with a known history of liver cirrhosis. Patient presents to the emergency department abdominal distention but denies any abdominal pain. His last paracentesis he indicates was November 14 8 days prior to arrival. The patient had no fevers or shaking or chills. He denies any hemoptysis hematemesis or melanotic stools. ROS All systems reviewed and are negative except as per history of present illness. Medications Home Meds Reported Medications Spironolactone* (Spironolactone*) 100 Mg Tablet, 100 MG PO DAILY, TAB 11/06/18 Furosemide* (Furosemide*) 40 Mg Tablet, 40 MG PO DAILY, TAB 11/06/18 Allergies Allergies: Coded Allergies: No Known Allergy (Unverified , 11/14/18) PMhx/Soc History of Surgery: Yes (UNBILICAL HERNIA REPAIR) Anesthesia Reaction: No Hx Neurological Disorder: No Hx Respiratory Disorders: No Hx Cardiac Disorders: Yes (Hypotension) Hx Psychiatric Problems: No Hx Miscellaneous Medical Probl: Yes (Cirrhosis with ascites) Hx Alcohol Use: Yes (FORMER DRINKER; STOPPED IN 2017) Hx Substance Use: No Hx Tobacco Use: No Smoking Status: Never smoker Physical Exam Vitals Vital Signs Date Temp Pulse Resp B/P (MAP) Pulse Ox O2 O2 Flow FiO2 Time Delivery Rate 11/22/18 69 18 119/76 100 Room Air 11:20 (90) 11/22/18 68 20 117/83 99 Room Air 10:45 (94) 11/22/18 98.1 81 18 120/74 100 08:19 (89) Physical Exam Constitutional:Well-developed. Well-nourished. HEENT:Normocephalic. Atetraumatic.Pupils were equal round reactive to light. Respiratory: Not using accessory muscles of respiration.Lungs were clear to auscultation bilaterally. No rhonchi. No rales. No wheezing. Cardiovascular: Regular rate regular rhythm.No murmurs. No rubs were appreciated.S1, S2 normal. Distal pulses are palpable 2+ bilaterally. GI: Abdomen was distended with tense ascites. No tenderness.. No pulsatile ab dominal masses or bruits. No rebound. No guarding. Bowel sounds were present and normal. Results 24 hrs Current Medications Medications Dose Sig/Sara Start Time Status Last (Trade) Ordered Route PRN Stop Time Admin Dose Reason Admin Lidocaine 5 ml STK-MED 11/22/18 DC (Xylocaine ONCE .ROUTE 11:33 1% (Mpf)) 11/22/18 11:34 Procedures/MDM This 53-year-old male presented to the emergency department with abdominal distention known history of ascites. No physical exam findings to suggest spontaneous bacterial peritonitis. Patient underwent an ultrasound-guided paracentesis performed by the radiologist. 5 L of fluid was removed. The patient tolerated the procedure well. The patient was discharged home in fair condition. They were instructed to return to the emergency department at any time if there was any worsening of their condition. The patient stated they would follow up with their PCP in the next 24-48 hours to initiate a suitable medication regimen under the care of their PCP as well as to allow their PCP to monitor any drug reactions. The patient was discharged home with prescriptions after they gave informed consent to the new medication. They were also fully informed by myself on the adverse effects and adverse drug interactions in order to provide adequate safeguards to prevent possible adverse reactions to medications. Departure Diagnosis: Primary Impression: Ascites Ascites type: due to alcoholic cirrhosis Qualified Codes: K70.31 - Alcoholic cirrhosis of liver with ascites Condition: Fair Patient Instructions: Paracentesis JOHN GONZALES MD Nov 23, 2018 13:26
== END 2018-11-22 11:45 | disposition home or self-care (01) ==
LOC: E/R 08:16
DX: K70.31 Alcoholic cirrhosis of liver with ascites (principal); I10 Essential (primary) hypertension
CPT/HCPCS: Z7502; Z7610

== ENCOUNTER 2018-11-27 08:07 | Emergency (ER) | payer MEDICAID ==
[~2018-11-27] VITALS: Ht 157.5 cm; Wt 76.0 kg
[2018-11-27 08:10] VITALS: Ht 157.5 cm; Wt 76.0 kg
[2018-11-27] MEDS ORDERED: LIDOCAINE 1% (MPF) 5 ML VIAL ONE (09:10)
[2018-11-27 09:33] VITALS: BP 113/62; PULSE 66; RESP 17
--- NOTE | 2018-11-27 09:36 | ERD ---
ER Documentation Chief Complaint Chief Complaint abdominal distention - needs paracentesis HPI 53-year-old gentleman history of cirrhosis with ascites who presents for need for paracentesis. Last paracentesis approximately 1 week ago. The patient describes abdominal distention and bloating and early satiety. No fevers or chills or abdominal pain. No hematemesis or melena. Symptoms are mild to moderate at this time. ROS All systems reviewed and are negative except as per history of present illness. Medications Home Meds Reported Medications Spironolactone* (Spironolactone*) 100 Mg Tablet, 100 MG PO DAILY, TAB 11/06/18 Furosemide* (Furosemide*) 40 Mg Tablet, 40 MG PO DAILY, TAB 11/06/18 Allergies Allergies: Coded Allergies: No Known Allergy (Unverified , 11/27/18) PMhx/Soc History of Surgery: Yes (UNBILICAL HERNIA REPAIR) Anesthesia Reaction: No Hx Neurological Disorder: No Hx Respiratory Disorders: No Hx Cardiac Disorders: Yes (Hypotension) Hx Psychiatric Problems: No Hx Miscellaneous Medical Probl: Yes (Cirrhosis with ascites) Hx Alcohol Use: Yes (FORMER DRINKER; STOPPED IN 2018) Hx Substance Use: No Hx Tobacco Use: No Smoking Status: Never smoker FmHx Family History: No diabetes Physical Exam Vitals Vital Signs Date Temp Pulse Resp B/P (MAP) Pulse Ox O2 O2 Flow FiO2 Time Delivery Rate 11/27/18 97.6 86 19 112/77 99 08:10 (89) Physical Exam General: Well developed, well nourished, no acute distress Head: Normocephalic, atraumatic. Eyes: EOM intact ENT: Moist mucous membranes Neck: Full ROM Respiratory: No respiratory distress Cardiovascular: Well perfused distally Abdominal: Protuberant with fluid wave, nontender, non-firm : Deferred MSK: No edema, no unilateral swelling, 5/5 strength Neurologic: Alert and oriented, moving all extremities, normal speech, steady gait Skin: No rash Psych: Normal mood Results 24 hrs Current Medications Medications Dose Sig/Sara Start Time Status Last (Trade) Ordered Route PRN Stop Time Admin Dose Reason Admin Lidocaine 5 ml STK-MED 11/27/18 DC 11/27/18 (Xylocaine ONCE .ROUTE 09:10 11/27/18 09:12 1% (Mpf)) 09:11 Procedures/MDM EKG, MONITORS, & DIAGNOSTIC IMAGING: Therapeutic paracentesis performed by interventional radiology. LAB INTERPRETATION: No significant coagulopathy noted on recent blood test within the past 30 days MEDICAL DECISION MAKING: The patient presents with abdominal ascites likely secondary to cirrhosis. Patient does not exhibit any signs or symptoms concerning for complications of cirrhosis such as GI bleed, hepatic encephalopathy or spontaneous bacterial peritonitis. There is no indication currently for diagnostic paracentesis. The patient will benefit from therapeutic paracentesis by interventional radiology. If the patient remains stable without evidence of hemodynamic compromise or post-paracentesis circulatory dysfunction secondary to fluid shifts the patient can be safely discharged home with close primary care and hepatology follow-up. ER COURSE: The patient had successful therapeutic paracentesis limited to 5L. The patient remained hemodynamically stable and otherwise well-appearing. The patient is safe for discharge home. No indication for albumin infusion at this time. I kept the patient and/or family informed of laboratory and diagnostic imaging results throughout the emergency room course. DISPOSITION PLAN: We discussed follow up with the patient's primary care doctor within 24 to 48 hours as needed. We also discussed return to the emergency room for worsening symptoms or worsening condition. Discharge Medications: None Departure Diagnosis: Primary Impression: Cirrhosis of liver with ascites Hepatic cirrhosis type: alcoholic cirrhosis Qualified Codes: K70.31 - Alcoholic cirrhosis of liver with ascites Condition: Good Patient Instructions: Ascites Referrals: [facility], [facility] YOU HAVE RECEIVED A MEDICAL SCREENING EXAM AND THE RESULTS INDICATE THAT YOU DO NOT HAVE A CONDITION THAT REQUIRES URGENT TREATMENT IN THE EMERGENCY DEPARTMENT. FURTHER EVALUATION AND TREATMENT OF YOUR CONDITION CAN WAIT UNTIL YOU ARE SEEN IN YOUR DOCTORS OFFICE WITHIN THE NEXT 1-2 DAYS. IT IS YOUR RESPONSIBILITY TO MAKE AN APPOINTMENT FOR FOLOW-UP CARE. IF YOU HAVE A PRIMARY DOCTOR --you should call your primary doctor and schedule an appointment IF YOU DO NOT HAVE A PRIMARY DOCTOR YOU CAN CALL OUR PHYSICIAN REFERRAL HOTLINE AT IF YOU CAN NOT AFFORD TO SEE A PHYSICIAN YOU CAN CHOSE FROM THE FOLLOWING [facility] CLINICS [facility] [address] [facility] [address] [facility] [address] [facility] [address] [facility] [address] [facility]. [facility] [address] [facility]. [facility] YOU HAVE RECEIVED A MEDICAL SCREENING EXAM AND THE RESULTS INDICATE THAT YOU DO NOT HAVE A CONDITION THAT REQUIRES URGENT TREATMENT IN THE EMERGENCY DEPARTMENT. FURTHER EVALUATION AND TREATMENT OF YOUR CONDITION CAN WAIT UNTIL YOU ARE SEEN IN YOUR DOCTORS OFFICE WITHIN THE NEXT 1-2 DAYS. IT IS YOUR RESPONSIBILITY TO MAKE AN APPOINTMENT FOR FOLOW-UP CARE. IF YOU HAVE A PRIMARY DOCTOR --you should call your primary doctor and schedule and appointment IF YOU DO NOT HAVE A PRIMARY DOCTOR YOU CAN CALL OUR PHYSICIAN REFERRAL HOTLINE AT . IF YOU CAN NOT AFFORD TO SEE A PHYSICIAN YOU CAN CHOSE FROM THE FOLLOWING [facility], [facility] INSTITUTIONS: [facility] [id number] [place] [id number] [place] [address] [address] [place], [place] [id number] [place] [address] [address] [place] [address] Additional Instructions: Llame al doctor nombrado abajo (Referral Sources) MAANA y chandu jake JASWINDER PARA DENTRO DE JAKE SEMANA. Dgale a la secretaria que nosotros le instruimos hacer esta jaswinder.Avise o llame si arias condicin se empeora antes de la jaswinder. JENNIFER SHELLEY MD Nov 27, 2018 09:36
== END 2018-11-27 09:48 | disposition home or self-care (01) ==
LOC: E/R 08:07
DX: K70.31 Alcoholic cirrhosis of liver with ascites (principal); Z87.891 Personal history of nicotine dependence
CPT/HCPCS: Z7502; Z7610

== ENCOUNTER 2018-12-03 08:16 | Emergency (ER) | payer MEDICAID ==
[~2018-12-03] VITALS: Ht 160 cm; Wt 77.2 kg
[2018-12-03 08:22] VITALS: Ht 160 cm; Wt 77.2 kg
[2018-12-03] MEDS ORDERED: LIDOCAINE 1% (MPF) 5 ML VIAL ONE (10:05)
--- NOTE | 2018-12-03 10:23 | ERD ---
ER Documentation Chief Complaint Chief Complaint here for paracenthesis and left leg swelling HPI Patient is a 53-year-old male with cirrhosis who presents for a paracentesis. The patient has a swollen abdomen. He denies vomiting, nausea, or diarrhea. He has no fevers. He also has left-sided leg numbness and tingling. It is not swollen. Upon review of old medical records the patient has multiple visits to the ER. Specifically he has 46 visits to our emergency department over the past 1 year. ROS All systems reviewed and are negative except as per history of present illness. Medications Home Meds Reported Medications Spironolactone* (Spironolactone*) 100 Mg Tablet, 100 MG PO DAILY, TAB 11/06/18 Furosemide* (Furosemide*) 40 Mg Tablet, 40 MG PO DAILY, TAB 11/06/18 Allergies Allergies: Coded Allergies: No Known Allergy (Unverified , 12/03/18) PMhx/Soc History of Surgery: Yes (UNBILICAL HERNIA REPAIR) Anesthesia Reaction: No Hx Neurological Disorder: No Hx Respiratory Disorders: No Hx Cardiac Disorders: Yes (Hypotension) Hx Psychiatric Problems: No Hx Miscellaneous Medical Probl: Yes (Cirrhosis with ascites) Hx Alcohol Use: Yes (FORMER DRINKER; STOPPED IN 2018) Hx Substance Use: No Hx Tobacco Use: No Smoking Status: Never smoker FmHx Family History: No diabetes Physical Exam Vitals Vital Signs Date Temp Pulse Resp B/P (MAP) Pulse Ox O2 O2 Flow FiO2 Time Delivery Rate 12/03/18 98.2 83 18 134/82 99 08:22 (99) Physical Exam Const: No acute distress Head: Atraumatic Eyes: Normal Conjunctiva ENT: Normal External Ears, Nose and Mouth. Neck: Full range of motion. No meningismus. Resp: Clear to auscultation bilaterally Cardio: Regular rate and rhythm, no murmurs Abd: Abdominal distention with positive fluid wave Skin: No petechiae or rashes Back: No midline or flank tenderness Ext: No cyanosis, or edema Neur: Awake and alert Psych: Normal Mood and Affect Results 24 hrs Current Medications Medications Dose Sig/Sara Start Time Status Last (Trade) Ordered Route PRN Stop Time Admin Dose Reason Admin Lidocaine 5 ml STK-MED 12/03/18 DC 12/03/18 (Xylocaine ONCE .ROUTE 10:05 10:07 1% (Mpf)) 12/03/18 10:06 Procedures/MDM Patient is a 53-year-old male with cirrhosis who presents with abdominal distention. He had a ultrasound-guided paracentesis performed by radiology. T he patient has no signs of spontaneous bacterial peritonitis. He will be discharged. He should follow-up with a primary doctor within the next 1 week. He can return for worsening symptoms. Departure Diagnosis: Primary Impression: Ascites Ascites type: other type Qualified Codes: R18.8 - Other ascites Condition: Fair Patient Instructions: Ascites Referrals: [facility] Usted se delatorre hecho un examen mdico de control que le indica que no est en jake condicin que requiera tratamiento urgente en el Departamento de Emergencia. Un estudio ms profundo y el tratamiento de arias condicin pueden esperar sin ningn riesgo hasta que usted sea atendida/o en el consultorio de arias mdico o jake clnica. Es responsabilidad suya arreglar jake jaswinder para el seguimiento del archaan. MANEJO DE CONDICIONES NO URGENTES EN EL FUTURO 1) Si usted tiene un mdico de atencin primaria: Usted debera llamar a arias mdico de atencin primaria antes de venir al departamento de emergencia. Despus de las horas de consultorio, arias doctor o arias asociado/a est disponible por telfono. El mdico o enfermero de eduard en el servicio telefnico puede asesorarle por cely medio para atender el problema, o archana contrario se puede programar jake jaswinder. 2) Si usted no tiene un mdico de atencin primaria: Llame al mdico o clnica de referencia que aparece abajo radha las horas de consultorio para hacer jake jaswinder para que le vean. CLINICAS: [facility] [phone] [address] [facility] 214 [phone] [address] [facility] 8[address] [phone] [facility] [phone] [place] [id number] [phone] [facility]. [phone] [address] Additional Instructions: Llame al doctor nombrado abajo (Referral Sources) MAANA y chandu jake JASWINDER PARA DENTRO DE JAKE SEMANA. Dgale a la secretaria que nosotros le instruimos hacer esta jaswinder.Avise o llame si arias condicin se empeora antes de la jaswinder. HOME CEBALLOS MD Dec 03, 2018 10:23
[2018-12-03 10:34] VITALS: BP 132/66; PULSE 75; RESP 19
== END 2018-12-03 10:34 | disposition home or self-care (01) ==
LOC: E/R 08:16
DX: R18.8 Other ascites (principal)
CPT/HCPCS: Z7502; Z7610

== ENCOUNTER 2018-12-10 08:16 | Emergency (ER) | payer MEDICAID ==
[~2018-12-10] VITALS: Ht 152.4 cm; Wt 79.1 kg
[2018-12-10 08:17] VITALS: Ht 152.4 cm; Wt 79.1 kg
[2018-12-10] MEDS ORDERED: LIDOCAINE 1% (MPF) 5 ML VIAL ONE (09:05)
[2018-12-10 09:51] VITALS: BP 127/74; PULSE 84; RESP 18
--- NOTE | 2018-12-10 09:52 | ERD ---
ER Documentation Chief Complaint Chief Complaint ABDOMINAL DISTENTION & PAIN NEED FLUID REMOVED. HPI Is a 53-year-old male with a known history of liver cirrhosis. The patient presents to the emergency department requesting a paracentesis. He has been complaining of abdominal distention. His last paracentesis was 1 week ago. There was 5 L that was removed. He has no hemoptysis no hematemesis no melanotic stools. He said no fevers no shaking no chills. ROS All systems reviewed and are negative except as per history of present illness. Medications Home Meds Reported Medications Spironolactone* (Spironolactone*) 100 Mg Tablet, 100 MG PO DAILY, TAB 11/06/18 Furosemide* (Furosemide*) 40 Mg Tablet, 40 MG PO DAILY, TAB 11/06/18 Allergies Allergies: Coded Allergies: No Known Allergy (Unverified , 12/03/18) PMhx/Soc History of Surgery: Yes (UNBILICAL HERNIA REPAIR) Anesthesia Reaction: No Hx Neurological Disorder: No Hx Respiratory Disorders: No Hx Cardiac Disorders: Yes (Hypotension) Hx Psychiatric Problems: No Hx Miscellaneous Medical Probl: Yes (Cirrhosis with ascites) Hx Alcohol Use: Yes (FORMER DRINKER; STOPPED IN 2018) Hx Substance Use: No Hx Tobacco Use: No Physical Exam Vitals Vital Signs Date Temp Pulse Resp B/P (MAP) Pulse Ox O2 O2 Flow FiO2 Time Delivery Rate 12/10/18 98.1 86 18 131/70 98 08:17 (90) Physical Exam Constitutional:Well-developed. Well-nourished. Respiratory: Not using accessory muscles of respiration.Lungs were clear to auscultation bilaterally. No rhonchi. No rales. No wheezing. Cardiovascular: Regular rate regular rhythm.No murmurs. No rubs were appreciated.S1, S2 normal. Distal pulses are palpable 2+ bilaterally. GI: Abdomen was distended with tense ascites. Positive fluid thrill. No tenderness. No pulsatile abdominal masses or bruits. No rebound. No guarding. Bowel sounds were present and normal. Skin: No petechia, no purpura. No lesions on the palms or the soles of the feet. No maculopapular rash. No jaundice NEURO: Patient was alert, awake, orientated x3.No facial droop. Gait observed and normal with no ataxia.Speech had regular rate and rhythm. No focal neurological deficits. Results 24 hrs Current Medications Medications Dose Sig/Sara Start Time Status Last (Trade) Ordered Route PRN Stop Time Admin Dose Reason Admin Lidocaine 5 ml STK-MED 12/10/18 DC 12/10/18 (Xylocaine ONCE .ROUTE 09:05 09:18 1% (Mpf)) 12/10/18 09:06 Procedures/MDM This is a 53-year-old male that presented to the emergency department with abdominal ascites. The patient underwent a therapeutic paracentesis with removal of 5 L performed by the radiologist under ultrasound guidance. The patient tolerated the procedure well. The patient was subsequently discharged home in fair condition. They were instructed to return to the emergency department at any time if there was any worsening of their condition. The patient stated they would follow up with their PCP in the next 24-48 hours to initiate a suitable medication regimen under the care of their PCP as well as to allow their PCP to monitor any drug reactions. The patient was discharged home with prescriptions after they gave informed consent to the new medication. They were also fully informed by myself on the adverse effects and adverse drug interactions in order to provide adequate safeguards to prevent possible adverse reactions to medications. Departure Diagnosis: Primary Impression: Ascites Ascites type: due to alcoholic cirrhosis Qualified Codes: K70.31 - Alcoholic cirrhosis of liver with ascites Condition: Fair Patient Instructions: Ascites JOHN GONZALES MD Dec 10, 2018 09:52
== END 2018-12-10 09:52 | disposition home or self-care (01) ==
LOC: E/R 08:16
DX: K70.31 Alcoholic cirrhosis of liver with ascites (principal)
CPT/HCPCS: Z7502; Z7610

== ENCOUNTER 2018-12-18 08:17 | Emergency (ER) | payer MEDICAID ==
[~2018-12-18] VITALS: Ht 157.5 cm; Wt 77.4 kg
[2018-12-18 08:18] VITALS: Ht 157.5 cm; Wt 77.4 kg
[2018-12-18] MEDS ORDERED: LIDOCAINE 1% (MPF) 5 ML VIAL ONE (09:59)
[2018-12-18 10:44] VITALS: BP 122/77; PULSE 72; RESP 18
--- NOTE | 2018-12-18 12:50 | ERD ---
ER Documentation Chief Complaint Chief Complaint here for paracenthesis HPI Patient is a 53-year-old male with a history of ascites and cirrhosis who presents for paracentesis. He has abdominal distention. He denies fevers. Upon review of old medical records the patient has multiple visits for paracentesis. He is well-known to myself and to our staff. ROS All systems reviewed and are negative except as per history of present illness. Medications Home Meds Reported Medications Spironolactone* (Spironolactone*) 100 Mg Tablet, 100 MG PO DAILY, TAB 11/06/18 Furosemide* (Furosemide*) 40 Mg Tablet, 40 MG PO DAILY, TAB 11/06/18 Allergies Allergies: Coded Allergies: No Known Allergy (Unverified , 12/18/18) PMhx/Soc History of Surgery: Yes (UNBILICAL HERNIA REPAIR) Anesthesia Reaction: No Hx Neurological Disorder: No Hx Respiratory Disorders: No Hx Cardiac Disorders: Yes (Hypotension) Hx Psychiatric Problems: No Hx Miscellaneous Medical Probl: Yes (Cirrhosis with ascites) Hx Alcohol Use: Yes (FORMER DRINKER; STOPPED IN 2017) Hx Substance Use: No Hx Tobacco Use: No Smoking Status: Never smoker FmHx Family History: No diabetes Physical Exam Vitals Vital Signs Date Temp Pulse Resp B/P (MAP) Pulse Ox O2 O2 Flow FiO2 Time Delivery Rate 12/18/18 98.1 72 18 122/77 99 10:44 (92) 12/18/18 98.1 75 18 135/75 99 08:18 (95) Physical Exam Const: No acute distress Head: Atraumatic Eyes: Normal Conjunctiva ENT: Normal External Ears, Nose and Mouth. Neck: Full range of motion. No meningismus. Resp: Clear to auscultation bilaterally Cardio: Regular rate and rhythm, no murmurs Abd: Abdominal distention with positive fluid wave Skin: No petechiae or rashes Back: No midline or flank tenderness Ext: No cyanosis, or edema Neur: Awake and alert Psych: Normal Mood and Affect Result Diagram: 12/18/18 1034 12/18/18 1034 Results 24 hrs Laboratory Tests Test 12/18/18 10:34 White Blood Count 4.7 10^3/ul Red Blood Count 4.06 10^6/ul Hemoglobin 11.9 g/dl Hematocrit 34.7 % Mean Corpuscular Volume 85.5 fl Mean Corpuscular Hemoglobin 29.3 pg Mean Corpuscular Hemoglobin Concent 34.3 g/dl Red Cell Distribution Width 14.6 % Platelet Count 64 10^3/UL Mean Platelet Volume 10.0 fl Immature Granulocytes % 0.200 % Neutrophils % 70.0 % Lymphocytes % 11.8 % Monocytes % 13.5 % Eosinophils % 3.9 % Basophils % 0.6 % Nucleated Red Blood Cells % 0.0 /100WBC Immature Granulocytes # 0.010 10^3/ul Neutrophils # 3.3 10^3/ul Lymphocytes # 0.6 10^3/ul Monocytes # 0.6 10^3/ul Eosinophils # 0.2 10^3/ul Basophils # 0.0 10^3/ul Nucleated Red Blood Cells # 0.0 10^3/ul Prothrombin Time 14.6 Sec Prothrombin Time Ratio 1.1 INR International Normalized Ratio 1.13 Activated Partial Thromboplast Time 36.1 Sec Sodium Level 138 mmol/L Potassium Level 4.0 mmol/L Chloride Level 106 mmol/L Carbon Dioxide Level 24 mmol/L Anion Gap 8 Blood Urea Nitrogen 14 mg/dl Creatinine 0.80 mg/dl Est Glomerular Filtrat Rate mL/min > 60 mL/min Glucose Level 89 mg/dl Calcium Level 8.0 mg/dl Total Bilirubin 1.4 mg/dl Direct Bilirubin 0.00 mg/dl Indirect Bilirubin 1.4 mg/dl Aspartate Amino Transf (AST/SGOT) 46 IU/L Alanine Aminotransferase (ALT/SGPT) 23 IU/L Alkaline Phosphatase 159 IU/L Total Protein 6.4 g/dl Albumin 2.9 g/dl Globulin 3.50 g/dl Albumin/Globulin Ratio 0.82 Lipase 97 U/L Current Medications Medications Dose Sig/Sara Start Time Status Last (Trade) Ordered Route PRN Stop Time Admin Dose Reason Admin Lidocaine 5 ml STK-MED 12/18/18 DC 12/18/18 (Xylocaine ONCE .ROUTE 09:59 10:21 1% (Mpf)) 12/18/18 10:00 Procedures/MDM Laboratory studies consistent with a patient with cirrhosis. Patient had an ultrasound-guided paracentesis performed by radiology. Patient is a 53-year-old male with a history of ascites and cirrhosis who presents with ascites. He had ultrasound-guided paracentesis performed by radiology. I doubt spontaneous bacterial peritonitis at this time. The patient will be discharged. Departure Diagnosis: Primary Impression: Ascites Ascites type: other type Qualified Codes: R18.8 - Other ascites Condition: Fair Patient Instructions: Ascites Referrals: Your doctor Additional Instructions: Llame al doctor nomda lacey (Referral Sources) MAANA y chandu jake JASWINDER PARA DENTRO DE JAKE SEMANA. Dgale a la secretaria que nosotros le instruimos hacer esta jaswinder.Avise o llame si arias condicin se empeora antes de la jaswinder. HOME CEABLLOS MD Dec 18, 2018 12:50
== END 2018-12-18 10:45 | disposition home or self-care (01) ==
LOC: E/R 08:17
DX: R18.8 Other ascites (principal)
CPT/HCPCS: 80053; 83690; 85025; 85610; 85730; Z7502; Z7610

== ENCOUNTER 2018-12-27 08:16 | Emergency (ER) | payer MEDICAID ==
[~2018-12-27] VITALS: Ht 162.6 cm; Wt 76.8 kg
[2018-12-27 08:21] VITALS: Ht 162.6 cm; Wt 76.8 kg
--- NOTE | 2018-12-27 10:11 | ERD ---
ER Documentation Chief Complaint Chief Complaint pt here for paracentesis , abd discomfort HPI 53-year-old male who presents to the emergency room requesting therapeutic paracentesis. The patient has a known history of alcoholic cirrhosis with ascites. The patient describes fullness. Early satiety. He denies hematemesis or melena. No fevers or chills. No abdominal pain. ROS All systems reviewed and are negative except as per history of present illness. Medications Home Meds Reported Medications Spironolactone* (Spironolactone*) 100 Mg Tablet, 100 MG PO DAILY, TAB 11/06/18 Furosemide* (Furosemide*) 40 Mg Tablet, 40 MG PO DAILY, TAB 11/06/18 Allergies Allergies: Coded Allergies: No Known Allergy (Unverified , 12/18/18) PMhx/Soc History of Surgery: Yes (UNBILICAL HERNIA REPAIR) Anesthesia Reaction: No Hx Neurological Disorder: No Hx Respiratory Disorders: No Hx Cardiac Disorders: Yes (Hypotension) Hx Psychiatric Problems: No Hx Miscellaneous Medical Probl: Yes (Cirrhosis with ascites) Hx Alcohol Use: Yes (FORMER DRINKER; STOPPED IN 2017) Hx Substance Use: No Hx Tobacco Use: No FmHx Family History: No diabetes Physical Exam Vitals Vital Signs Date Temp Pulse Resp B/P (MAP) Pulse Ox O2 O2 Flow FiO2 Time Delivery Rate 12/27/18 97.7 82 18 138/88 99 08:21 (105) Physical Exam General: Well developed, well nourished, no acute distress Head: Normocephalic, atraumatic. Eyes: EOM intact ENT: Moist mucous membranes Neck: Full ROM Respiratory: No respiratory distress Cardiovascular: Well perfused distally Abdominal: Protuberant, fluid wave, nontender, no peritonitis : Deferred MSK: No edema, no unilateral swelling, 5/5 strength Neurologic: Alert and oriented, moving all extremities, normal speech, steady gait Skin: No rash Psych: Normal mood Procedures/MDM EKG, MONITORS, & DIAGNOSTIC IMAGING: Therapeutic paracentesis performed by interventional radiology. LAB INTERPRETATION: No significant coagulopathy noted on labs within the past 30 days MEDICAL DECISION MAKING: The patient presents with abdominal ascites likely secondary to cirrhosis. Patient does not exhibit any signs or symptoms concerning for complications of cirrhosis such as GI bleed, hepatic encephalopathy or spontaneous bacterial peritonitis. There is no indication currently for diagnostic paracentesis. The patient will benefit from therapeutic paracentesis by interventional radiology. If the patient remains stable without evidence of hemodynamic compromise or post-paracentesis circulatory dysfunction secondary to fluid shifts the patient can be safely discharged home with close primary care and hepatology follow-up. ER COURSE: The patient had successful therapeutic paracentesis limited to 5L. The patient remained hemodynamically stable and otherwise well-appearing. The patient is safe for discharge home. No indication for albumin infusion at this time. I kept the patient and/or family informed of laboratory and diagnostic imaging results throughout the emergency room course. DISPOSITION PLAN: We discussed follow up with the patient's primary care doctor within 24 to 48 hours as needed. We also discussed return to the emergency room for worsening symptoms or worsening condition. Discharge Medications: None Departure Diagnosis: Primary Impression: Ascites Ascites type: due to alcoholic cirrhosis Qualified Codes: K70.31 - Alcoholic cirrhosis of liver with ascites Condition: Stable Patient Instructions: Ascites Ref[facility] Usted se delatorre hecho un examen mdico de control que le indica que no est en jake condicin que requiera tratamiento urgente en el Departamento de Emergencia. Un estudio ms profundo y el tratamiento de arias condicin pueden esperar sin ningn riesgo hasta que usted sea atendida/o en el consultorio de arias mdico o jake clnica. Es responsabilidad suya arreglar jake jaswinder para el seguimiento del archana. MANEJO DE CONDICIONES NO URGENTES EN EL FUTURO 1) Si usted tiene un mdico de atencin primaria: Usted debera llamar a arias mdico de atencin primaria antes de venir al departamento de emergencia. Despus de las horas de consultorio, arias doctor o arias asociado/a est disponible por telfono. El mdico o enfermero de eduard en el servicio telefnico puede asesorarle por cely medio para atender el problema, o archana contrario se puede programar jake jaswinder. 2) Si usted no tiene un mdico de atencin primaria: Llame al mdico o clnica de referencia que aparece abajo radha las horas de consultorio para hacer jake jaswinder para que le vean. CLINICAS: [facility] [phone] [facility] [phone] [facility] [phone] [place] [id number] [phone] [place] [address] [phone] [facility] [phone] [address] [facility]. [facility] () ted se delatorre hecho un examen mdico de control que le indica que no est en jake condicin que requiera tratamiento urgente en el Departamento de Emergencia. Un estudio ms profundo y el tratamiento de arias condicin pueden esperar sin ningn riesgo hasta que usted sea atendida/o en el consultorio de arias mdico o jake clnica. Es responsabilidad suya arreglar jake jaswinder para el seguimiento del archana. MANEJO DE CONDICIONES NO URGENTES EN EL FUTURO 1) Si usted tiene un mdico de atencin primaria: Usted debera llamar a arias mdico de atencin primaria antes de venir al departamento de emergencia. Despus de las horas de consultorio, arias doctor o arias asociado/a est disponible por telfono. El mdico o enfermero de eduard en el servicio telefnico puede asesorarle por cely medio para atender el problema, o archana contrario se puede programar jake jaswinder. 2) Si usted no tiene un mdico de atencin primaria: Llame al mdico o condado institucions de referencia que aparece abajo radha las horas de consultorio para hacer jake jaswinder para que le vean. SI USTED NO PUEDE PAGAR PARA JAMSHID UN MEDICO puede ir a: [facility] [phone] [place] [address] [facility] [address] [place] [address] [facility] [address] [place] [address] [facility] [address] [place] [address] Additional Instructions: Llame al doctor nombrado abamoisés (Referral Sources) MAANA y chandu jake JASWINDER PARA DENTRO DE JAKE SEMANA. Dgale a la secretaria que nosotros le instruimos hacer esta jaswinder.Avise o llame si arias condicin se empeora antes de la jaswinder. JENNIFER SHELLEY MD Dec 27, 2018 10:11
[2018-12-27] MEDS ORDERED: LIDOCAINE 1% (MPF) 5 ML VIAL ONE (10:16)
[2018-12-27 10:19] VITALS: BP 118/71; PULSE 78; RESP 20
== END 2018-12-27 10:27 | disposition home or self-care (01) ==
LOC: E/R 08:16
DX: K70.31 Alcoholic cirrhosis of liver with ascites (principal)
CPT/HCPCS: Z7610 ×2

== ENCOUNTER 2019-04-24 07:58 | Emergency (ER) | payer MEDICAID ==
[~2019-04-24] VITALS: Ht 157.5 cm; Wt 72.2 kg
[~2019-04-24 07:58] MED LIST changes: +HYDR-4011 PO
[2019-04-24 07:59] VITALS: Ht 157.5 cm; Wt 72.2 kg
[2019-04-24 12:27] VITALS: BP 134/78; PULSE 80; RESP 20
== END 2019-04-24 12:28 | disposition home or self-care (01) ==
LOC: E/R 07:58
DX: K42.9 Umbilical hernia without obstruction or gangrene (principal); R40.2142 Coma scale, eyes open, spontaneous, at arrival to emergency department; R40.2362 Coma scale, best motor response, obeys commands, at arrival to emergency department; R40.2252 Coma scale, best verbal response, oriented, at arrival to emergency department
CPT/HCPCS: 36415; 74176; 80053; 81003; 83690; 85025; Z7502; Z7610